=== PATIENT | male | born 1940 | race Caucasian/White ===

== ENCOUNTER 2016-05-21 08:42 | Observation (INO) | payer MEDICARE, MEDICAID ==
[~2016-05-21] VITALS: Ht 172.7 cm; Wt 101.8 kg
[~2016-05-21 08:42] MED LIST: ADAL30TA10 PO; ALLO100T PO; ALPR0.5T3 PO; AMBI10TA PO; AMLO10 PO; ASPI81 PO; ATOR20TA42 PO; CLON.1 PO; COLC1TAB7 PO; CORE25TA PO; FURO10S PO; FURO20 PO; GLIP10TA6 PO; HYDR12.56 PO; LACT20SO4 PO; LASI20TA PO; LISI-366 PO; METF1000 PO; NAPR-576 PO; OMEG1CAP53 PO; ONDA1TAB16 PO; ONDANSETRON HCL 4 MG/2 ML VIAL IV PUSH ONE; POTA-243 PO; PROPOFOL 200 MG/20 ML AMP IV ONE; TAB-TAB PO; TERA5CAP34 PO; TRAD5TAB PO; ZOCO40TA PO
[2016-05-21] MEDS ORDERED: ALLO100T PO (08:59)
[2016-05-21] MEDS ORDERED: TERA5CAP3 PO (09:00)
[2016-05-21] MEDS ORDERED: METF500T PO (09:00)
[2016-05-21] MEDS ORDERED: ALPR0.5T3 PO (09:01)
[2016-05-21] MEDS ORDERED: CARV12.52 PO (09:02)
[2016-05-21] MEDS ORDERED: COLC1TAB7 PO (09:03)
[2016-05-21] MEDS ORDERED: FURO1TAB60 PO (09:04)
[2016-05-21] MEDS ORDERED: GLUC1CAP14 PO (09:05)
[2016-05-21] MEDS ORDERED: GLIP10TA6 PO (09:05)
[2016-05-21] MEDS ORDERED: trajenta PO (09:10)
[2016-05-21] MEDS ORDERED: TRAD5TAB PO (09:11)
[2016-05-21 09:15] VITALS: BP 175/94; PULSE 62; RESP 20; TEMP 97.6; O2SAT 90
[2016-05-21] MEDS ORDERED: METOPROLOL TARTRATE 25 MG TAB PO PRN (09:30)
[2016-05-21] MEDS: SODIUM CHLORID 0.9% 500 ML IV SCH (09:30)
[2016-05-21] MEDS: LACTATED RINGER'S 1000 ML IV SCH (09:30)
[2016-05-21] MEDS ORDERED: INSULIN HUMAN REGULAR 1,000 UNITS/10 ML VIAL SQ PRN (09:30)
[2016-05-21] MEDS: SODIUM CHLOR 0.9% 1000 ML INJ 1,000 ML IV SCH (09:30)
[2016-05-21] MEDS ORDERED: ceFAZolin 2 GM PREMIX 50 ML IV SCH (09:30)
--- NOTE | 2016-05-21 10:59 | RADRPT ---
EXAM DATE/TIME: 05/21/2016 10:20 [facility] COMPARISON: No previous studies available for comparison. INDICATIONS : Patient with left renal mass in need of IV access. MEDICAL HISTORY : Prostate cancer, Colon cancer, Diabetes, HLD, HTN, COPD, MS, Irregular heartbeat, Diverticulitis, BPH , Gout SURGICAL HISTORY : Cholecystectomy, Colon resection, Cardiac cath ENCOUNTER: Initial ACUITY: 1 year PAIN SCORE: 0/10 ACCESS: Right basilic vein DEVICE(S): 1.) 3/4 Scottish Dilator PROCEDURE : 1. Ultrasound guided venous access. The risks, benefits and alternatives to the procedure were explained and verbal and written consent w as obtained. The site was prepped in sterile fashion. Full sterile technique was used, including ca p, mask, sterile gloves and gown and a large sterile sheet. Hand hygiene and 2% chlorhexidine and/or betadine/alcohol prep was utilized per protocol for cutaneous antisepsis. The skin and subcutaneous tissues were infiltrated with local anesthetic solution. With ultrasound guidance the prescribed vein was punctured for venous access. A 4 Scottish dilator was placed and was flushed and locked with heparin. The patient tolerated procedure well and there were n o complications. CONCLUSION: Uncomplicated ultrasound guided venous access. Hussein Durand MD on May 21, 2016 at 10:58 Board Certified Radiologist. This report was verified electronically.
[2016-05-21 11:00] VITALS: BP 177/90; PULSE 69; RESP 22; O2SAT 92
[2016-05-21 11:08] LABS: BASOPHIL # 0.1 TH/MM3 (0-0.2); EOSINOPHIL # 0.1 TH/MM3 (0-0.4); HEMATOCRIT 33.7 % (39.0-51.0); HEMO FLAGS DIFF FINAL; LYMPHOCYTE # 0.7 TH/MM3 (1.0-4.8); MEAN CORPUSCULAR HEMOGLOBIN 31.9 PG (27.0-34.0); MEAN CORPUSCULAR HGB CONC 35.1 % (32.0-36.0); MONO % 9.7 % (0.0-8.0); NEUT % 74.3 % (16.0-70.0); PLATELET COUNT 157 TH/MM3 (150-450); RED BLOOD COUNT 3.71 MIL/MM3 (4.50-5.90); RED CELL DISTRIBUTION WIDTH 16.2 % (11.6-17.2); WHITE BLOOD COUNT 5.4 TH/MM3 (4.0-11.0)
[2016-05-21 11:09] LABS: PROTHROMBIN TIME - PATIENT 10.7 SEC (9.8-11.6)
[2016-05-21 11:13] LABS: APTT (PATIENT) 24.2 SEC (24.3-30.1)
[2016-05-21] MEDS ORDERED: LIDOCAINE 1%/EPINEPHrine 1:100,000 SOLN 20 ML VIAL ONE (11:35)
[2016-05-21 12:09] LABS: BICARBONATE 32.6 MEQ/L (21.0-32.0); POTASSIUM 3.7 MEQ/L (3.5-5.1)
--- NOTE | 2016-05-21 14:58 | EKG ---
Date Performed: 05/21/2016 Time Performed: 09:24:00 PTAGE: 75 years EKG: Sinus rhythm WITH FIRST DEGREE AV BLOCK NONSPECIFIC T-WAVE ABNORMALITY ABNORMAL ECG NO SIGNIFICANT CHANGE FROM OR IOR ELECTROCARDIOGRAM. PREVIOUS TRACING : 07/19/2013 23.00 DOCTOR: Mo Jones Interpretating Date/Time 05/21/2016 14:57:23
[2016-05-21] MEDS ORDERED: *LABETALOL HCL 100 MG/20 ML VIAL PERIprocedural Use ONLY ONE (16:18)
[2016-05-21] MEDS ORDERED: *ENALAPRILAT 1.25 MG/ML VIAL PERIprocedural Use ONLY ONE (16:38)
[2016-05-21] MEDS ORDERED: DO NOT ADM ANY ANTICOAGULANT DRUGS XX PRN (16:45)
--- NOTE | 2016-05-21 17:26 | PD.RAD ---
Post CT Procedure Prog Note Pre Procedure Diagnosis: (1) Left renal mass Post Procedure Diagnosis: (1) Left renal mass Procedure Date: May 21, 2016 Supervising Radiologist: Hussein Durand Proceduralist/Assist: Juan Jose Whelan RT(R)(CT) Anesthesia: General Plan of Activity Patient to Unit: PACU Patient Condition: Good See PACS Report for procedural detail/treatment Biopsy Side: Left Biopsy Procedure: Kidney Specimen: Core Biopsy Additional Detail: with cryoablation Hussein Durand MD May 21, 2016 17:26
[2016-05-21 17:29] VITALS: BP 170/90; PULSE 66; RESP 19; TEMP 97.9; O2SAT 97
--- NOTE | 2016-05-21 17:55 | HHI.HP ---
HPI Service CP Hospitalists Primary Care Physician Alirio Johnson MD Admission Diagnosis Chief Complaint: renal mass Travel History International Travel<30 Days: No Contact w/Intl Traveler <30 Da: No Traveled to Known Affected Are: No History of Present Illness Pt [place] [facility] [place] bx of left renal mass. Pt is doing well and vitals are stable. denies pain or nausea. eager for d/c in AM. Review of Systems Other renal mass holding all dm meds due to low bg Past Family Social History Past Medical History HTN CAD with hx of [place] Hypertensive CKD, stage 2 Hyperlipidemia Diabetes..but hold all dm meds due to low bg Depression/anxiety GERD/Gastritis Hx of colon cancer Hx of prostate cancer Hx of melanoma RA Nontoxic multinodular goiter Osteoarthritis Past Surgical History EGD/colonoscopy 05/16/16 --> large friable nodules in the antrum, severe gastritis, mild diverticulosis, anatomy consistent with right hemicolectomy Partial colectomy Cholecystectomy Tonsillectomy Reported Medications -Lasix 40 Mg PO DAILY -Alprazolam 0.5 Mg PO DAILY PRN -Terazosin 5 Mg PO HS --Colcrys 0.6 Mg PO DAILY PRN Carvedilol 12.5 Mg PO daily Glucosamine-Chondroitin 500-400 Mg Cap 1 Cap PO DAILY HE IS NO LONGER TAKING THE FOLLOWING DUE TO LOW BG: Metformin 500 Mg PO in AM and 1,000Mg in PM With a meal Glipizide 10 Mg PO BID Tradjenta 5 Mg PO DAILY Allergies: Coded Allergies: Contrast Media (Verified Allergy, Severe, RASH, ITCHING, 05/21/16) Shellfish (Verified Allergy, Severe, RASH, ITCHING, 05/21/16) Family History Noncontributory Social History Denies any alcohol, tobacco or illicit drug use Physical Exam Vital Signs Vital Signs Date Time Temp Pulse Resp B/P Pulse Ox O2 Delivery O2 Flow Rate FiO2 05/21/16 17:29 97.9 66 19 170/90 97 05/21/16 16:30 46 12 172/83 94 Room Air 05/21/16 16:15 60 12 187/98 93 Room Air 05/21/16 15:59 97.8 66 12 185/88 97 Room Air 05/21/16 11:00 69 22 177/90 92 05/21/16 09:41 90 Room Air 05/21/16 09:15 97.6 62 20 175/94 90 Laboratory Laboratory Tests Test 05/21/16 05/21/16 10:40 11:30 White Blood Count 5.4 Red Blood Count 3.71 Hemoglobin 11.8 Hematocrit 33.7 Mean Corpuscular Volume 91.0 Mean Corpuscular Hemoglobin 31.9 Mean Corpuscular Hemoglobin 35.1 Concent Red Cell Distribution Width 16.2 Platelet Count 157 Mean Platelet Volume 10.8 Neutrophils (%) (Auto) 74.3 Lymphocytes (%) (Auto) 13.0 Monocytes (%) (Auto) 9.7 Eosinophils (%) (Auto) 2.0 Basophils (%) (Auto) 1.0 Neutrophils # (Auto) 4.0 Lymphocytes # (Auto) 0.7 Monocytes # (Auto) 0.5 Eosinophils # (Auto) 0.1 Basophils # (Auto) 0.1 CBC Comment DIFF FINAL Differential Comment Prothrombin Time 10.7 Prothromb Time International 1.0 Ratio Activated Partial 24.2 Thromboplast Time Sodium Level 137 Potassium Level 3.7 Chloride Level 99 Carbon Dioxide Level 32.6 Anion Gap 5 Blood Urea Nitrogen 17 Creatinine 1.35 Estimat Glomerular Filtration 51 Rate Random Glucose 190 Calcium Level 8.5 Result Diagram: 05/21/16 1040 05/21/16 1130 Imaging Last Impressions [facility] [place] Interventional Procedure 05/21/16 0000 Signed Impressions: Service Date/Time: Saturday, May 21, 2016 10:20 - CONCLUSION: Uncomplicated ultrasound guided venous access. Hussein Durand MD Septic Shock Reassessment Heart: Regular rate and rhythm Lungs: Clear Skin: Warm Assessment and Plan Problem List: (1) Left renal mass Status: Acute Plan: pt admitted post cryoablation and renal bx for left renal mass admitted overnight for observation by IR c. If pt remains stable overnight he can be discharged and f/u with her referring physician. monitor bp/pulse monitor bg with ssi. pt has been holding glipizide/metformin/tradjenta at home due to low bg. (2) Anxiety Status: Chronic Plan: xanax prn (3) DM (diabetes mellitus) Status: Chronic Plan: holding his 3 meds as above. (4) HTN (hypertension) Status: Chronic Plan: home meds (5) Gout Status: Chronic Kailey Thurman May 21, 2016 17:55 Ronald Mike MD May 21, 2016 18:41
[2016-05-21] MEDS ORDERED: HYDROmorphone HCL 2 MG TAB PO PRN (18:00)
--- NOTE | 2016-05-21 18:04 | RADRPT ---
EXAM DATE/TIME: 05/21/2016 13:27 [facility] COMPARISON: No previous studies available for comparison. INDICATIONS : Left kidney lesions BIOPSY SITE: Left kidney Anesthesia and pain control was provided by the Anesthesia department. DEVICE(S): 1.) 20 gauge Temno core biopsy needle 2.) 22 gauge [place] MEDICAL HISTORY : Diverticullitis. Prostate ca SURGICAL HISTORY : Cholecystectomy ENCOUNTER: Initial ACUITY: 1 day PAIN SCORE: 0/10 LOCATION: Left Kidney A total of one core specimen(s) were obtained and sent to the laboratory for pathologic evaluation. PROCEDURE: 1. CT guided renal biopsy. Prior to the procedure informed consent was obtained. Any appropriate prior imaging studies were rev iewed. The site was prepped in a sterile fashion. Full sterile technique was used, including cap, mask, slade rile gloves and gown and a large sterile sheet. Hand hygiene and 2% chlorhexidine and/or betadine/al cohol prep was utilized per protocol for cutaneous antisepsis. The skin and subcutaneous tissues wer e infiltrated with local anesthetic solution. With CT guidance the previously identified target was localized. Biopsy was performed using the presc ribed needle as above. Adequate hemostasis was obtained with compression at the puncture site. Follow-up CT scan reveals no hemorrhage. The patient tolerated the procedure well and there were no complications. The patient was returned to the Radiology Outpatient Unit in stable condition. CONCLUSION: Uncomplicated CT guided biopsy. Hussein Durand MD on May 21, 2016 at 18:01 Board Certified Radiologist. This report was verified electronically.
[2016-05-21] MEDS ORDERED: DEXTROSE 50% IN WATER 50 ML VIAL(D50) IV PUSH PRN (18:15)
[2016-05-21] MEDS ORDERED: ONDANSETRON HCL 4 MG/2 ML VIAL IV PUSH PRN (18:15)
[2016-05-21] MEDS ORDERED: GLUCAGON 1 MG/ML VIAL OTHER PRN ×2 (18:15)
[2016-05-21 19:37] VITALS: O2SAT 97
[2016-05-21 19:38] LABS: HEMATOCRIT 36.1 % (39.0-51.0); MEAN CELL VOLUME 90.6 FL (80.0-100.0); MEAN CORPUSCULAR HEMOGLOBIN 30.8 PG (27.0-34.0); PLATELET COUNT 117 TH/MM3 (150-450); RED BLOOD COUNT 3.98 MIL/MM3 (4.50-5.90); RED CELL DISTRIBUTION WIDTH 15.4 % (11.6-17.2); WHITE BLOOD COUNT 6.1 TH/MM3 (4.0-11.0)
[2016-05-21 19:39] LABS: HEMO FLAGS AUTO DIFF
[2016-05-21 20:00] VITALS: BP 185/87; PULSE 50; RESP 18; TEMP 96.4; O2SAT 97
[2016-05-21] MEDS: INSULIN ASPART SUPPLEMENTAL SCALE SQ SCH (20:37)
[2016-05-21 20:38] LABS: BANDS 10 % (0-6); EOSINOPHILS 3 % (0-4); METAMYELOCYTES 1 % (0-1); NEUTROPHIL # MANUAL DIFF 4.2 TH/MM3 (1.8-7.7); PLATELET ESTIMATE SMEAR LOW (NORMAL); PLATELET MORPHOLOGY NORMAL (NORMAL); POLYS (SEG NEUTROPHILS) 58 % (16-70); SCAN/DIFF FINAL DIFF MANUAL; WBC DIFF SAMPLE 100
[2016-05-21] MEDS ORDERED: TERAZOSIN HCL 5 MG CAP PO SCH (21:00)
[2016-05-21] MEDS: ALPRAZolam 0.5 MG TAB PO PRN (23:17)
[2016-05-21] MEDS: cloNIDine HCL 0.1 MG TAB PO PRN (23:17)
[2016-05-22] VITALS (10 sets, daily range): BP systolic 144–205; BP diastolic 67–93; PULSE 56–65; RESP 16–18; TEMP 96.3–98.1; O2SAT 92–96
[2016-05-22] MEDS: SODIUM CHLORID 0.9% 500 ML IV SCH (01:57)
[2016-05-22] MEDS: INSULIN ASPART SUPPLEMENTAL SCALE SQ SCH ×3 (05:08→15:39)
[2016-05-22] MEDS: SODIUM CHLOR 0.9% 1000 ML INJ 1,000 ML IV SCH (08:46)
[2016-05-22] MEDS: LACTATED RINGER'S 1000 ML IV SCH (08:46)
[2016-05-22] MEDS ORDERED: ALLOPURINOL 100 MG TAB PO SCH (09:00)
[2016-05-22] MEDS ORDERED: CARVEDILOL 12.5 MG TAB PO SCH (09:00)
[2016-05-22] MEDS ORDERED: FUROSEMIDE 40 MG TAB PO SCH (09:00)
[2016-05-22] MEDS: cloNIDine HCL 0.1 MG TAB PO PRN ×2 (11:10→15:42)
[2016-05-22] MEDS ORDERED: LOSA50TA PO (11:35)
--- NOTE | 2016-05-22 12:00 | HHI.PR ---
Subjective Remarks Pt with elevated BP last night and this morning. NO new complaints Anxious to go home Objective Vitals Vital Signs Date Time Temp Pulse Resp B/P Pulse Ox O2 Delivery O2 Flow Rate FiO2 05/22/16 08:00 98.1 65 16 163/72 94 05/22/16 04:00 97.1 56 18 144/67 92 05/22/16 00:00 96.9 58 16 205/93 96 05/21/16 20:00 96.4 50 18 185/87 97 05/21/16 19:37 97 21 05/21/16 17:29 97.9 66 19 170/90 97 05/21/16 16:30 46 12 172/83 94 Room Air 05/21/16 16:15 60 12 187/98 93 Room Air 05/21/16 15:59 97.8 66 12 185/88 97 Room Air 05/21/16 05/21/16 05/22/16 15:00 23:00 07:00 Intake Total 1240 ml 120 ml Output Total 200 ml 250 ml Balance 1040 ml -130 ml Intake Oral 240 ml 120 ml IV Total 0 ml 0 ml Other 1000 ml Output Urine Total 200 ml 250 ml Estimated Blood Loss 0 ml # Bowel Movements 0 Result Diagram: 05/21/16 1857 05/21/16 1130 Other Results Laboratory Tests Test 05/21/16 05/21/16 05/21/16 10:40 11:30 18:57 White Blood Count 5.4 TH/MM3 6.1 TH/MM3 Red Blood Count 3.71 MIL/MM3 3.98 MIL/MM3 Hemoglobin 11.8 GM/DL 12.3 GM/DL Hematocrit 33.7 % 36.1 % Mean Corpuscular Volume 91.0 FL 90.6 FL Mean Corpuscular Hemoglobin 31.9 PG 30.8 PG Mean Corpuscular Hemoglobin 35.1 % 34.0 % Concent Red Cell Distribution Width 16.2 % 15.4 % Platelet Count 157 TH/MM3 117 TH/MM3 Mean Platelet Volume 10.8 FL 10.5 FL Neutrophils (%) (Auto) 74.3 % % Lymphocytes (%) (Auto) 13.0 % % Monocytes (%) (Auto) 9.7 % % Eosinophils (%) (Auto) 2.0 % % Basophils (%) (Auto) 1.0 % % Neutrophils # (Auto) 4.0 TH/MM3 TH/MM3 Lymphocytes # (Auto) 0.7 TH/MM3 TH/MM3 Monocytes # (Auto) 0.5 TH/MM3 TH/MM3 Eosinophils # (Auto) 0.1 TH/MM3 TH/MM3 Basophils # (Auto) 0.1 TH/MM3 TH/MM3 CBC Comment DIFF FINAL AUTO DIFF Differential Comment FINAL DIFF MANUAL Prothrombin Time 10.7 SEC Prothromb Time International 1.0 RATIO Ratio Activated Partial 24.2 SEC Thromboplast Time Sodium Level 137 MEQ/L Potassium Level 3.7 MEQ/L Chloride Level 99 MEQ/L Carbon Dioxide Level 32.6 MEQ/L Anion Gap 5 MEQ/L Blood Urea Nitrogen 17 MG/DL Creatinine 1.35 MG/DL Estimat Glomerular Filtration 51 ML/MIN Rate Random Glucose 190 MG/DL Calcium Level 8.5 MG/DL Differential Total Cells 100 Counted Neutrophils % (Manual) 58 % Band Neutrophils % 10 % Lymphocytes % 20 % Monocytes % 8 % Eosinophils % 3 % Neutrophils # (Manual) 4.2 TH/MM3 Metamyelocytes 1 % Atypical Lymphocytes % Platelet Estimate LOW Platelet Morphology Comment NORMAL Hematology Comments Imaging Last Impressions [facility] [place] Interventional Procedure 05/21/16 0000 Signed Impressions: Service Date/Time: Saturday, May 21, 2016 10:20 - CONCLUSION: Uncomplicated ultrasound guided venous access. Hussein Durand MD Objective Remarks General: NAD, AAOx3 Chest: CTA bilaterally Cardiac: Regular Abd: +BS, soft ND/NT Ext: No edema A/P Problem List: (1) Left renal mass Status: Acute Plan: - Pt admitted post cryoablation and renal bx for left renal mass, [place] [facility] [place] Pt cleared for discharge by IR for today. - BP elevated overnight and this morning. - Pt reports that there have been issues controlling his blood pressure outpt for some time. - He was recently started on Losartan 50mg which was increased a few weeks ago to BID dosing. - Pt will resume this upon discharge and receive a dose this evening. He was given Clonidine around 11:00AM so I don't want to resume the Losartan now as his BP will likely drop further. Await repeat BP this afternoon and if systolic BP less than 170 pt can go home and resume his home meds. - He will need to followup with Dr. Johnson next week and with Dr. Quezada his Urologist. (2) Anxiety Status: Chronic Plan: - Xanax prn (3) DM (diabetes mellitus) Status: Chronic Plan: - Holding his 3 meds due to low blood sugars at home. (4) HTN (hypertension) Status: Chronic Plan: - See above. (5) Gout Status: Chronic Assessment and Plan Patient examined. Assessment and plan formulated with Kailey Thurman PA-C. I agree with the above. dc/ once bp lowered. he was not given his losartan last night or this morning. it wasn't on med recc. Kailey Thurman May 22, 2016 12:00 Ronald Mike MD May 22, 2016 13:01
--- NOTE | 2016-05-22 12:02 | HHI.DCPOC ---
Discharge Care Plan Diagnosis: (1) Anxiety (2) Gout (3) DM (diabetes mellitus) (4) HTN (hypertension) (5) Left renal mass Goals to Promote Your Health * To prevent worsening of your condition and complications * To maintain your health at the optimal level Directions to Meet Your Goals Take your medications as prescribed Follow your dietary instruction Follow activity as directed Keep your appointments as scheduled Take your immunizations and boosters as scheduled If your symptoms worsen call your PCP, if no PCP go to Urgent Care Center or Emergency Room Smoking is Dangerous to Your Health. Avoid second hand smoke Call the 24-hour hour crisis hotline for domestic abuse at Kailey Thurman May 22, 2016 12:02
[2016-05-22] MEDS ORDERED: LOSARTAN 50 MG TAB PO ONE (13:15)
[2016-05-22] MEDS: ALPRAZolam 0.5 MG TAB PO PRN (13:47)
[2016-05-22] MEDS ORDERED: cloNIDine HCL 0.2 MG TAB PO PRN (16:15)
[2016-05-22] MEDS ORDERED: ENALAPRILAT 1.25 MG/ML VIAL IV PUSH PRN (16:45)
--- NOTE | 2016-05-22 18:39 | RADRPT ---
EXAM DATE/TIME: 05/21/2016 13:27 INDICATIONS : Left renal lesion Anesthesia and pain control was provided by the Anesthesia department. DEVICE(S): 1.) Cryoablation probe [id number] MEDICAL HISTORY : Diverticullitis. Prostate cancer SURGICAL HISTORY : Cholecystectomy. ENCOUNTER: Initial ACUITY: 1 day PAIN SCORE: 0/10 LOCATION: Left Kidney PROCEDURE : 1. CT guided cryoablation. Under sterile conditions and using aseptic technique with CT guidance the mass was localized and sati sfactory approach was taken to access the lesion. [employer] Cryoprobes were employed using percutaneous technique employing the prescribed probes. A freeze-thaw, freeze-thaw technique was employed with 2 separate repositionings of the treatment pr obe and serial imaging demonstrated an ice ball emcompassing the entire lesion. Post procedure image s demonstrate expected postoperative changes small perinephric hematoma which was observed and docume nted to be stable prior to transfer to the recovery area. CONCLUSION: Uncomplicated cryoablation as above. Hussein Durand MD on May 22, 2016 at 18:35 Board Certified Radiologist. This report was verified electronically.
== END 2016-05-22 19:45 | disposition home or self-care (01) ==
LOC: HROP 08:42 → HRIP 08:43 → HROP 15:12 → N07B 15:13
PROVIDERS: ADMIT Hospitalist; ATTEND Hospitalist
DX: N28.89 Other specified disorders of kidney and ureter (principal); F41.9 Anxiety disorder, unspecified; I12.9 Hypertensive chronic kidney disease with stage 1 through stage 4 chronic kidney disease, or unspecified chronic kidney disease; N18.2 Chronic kidney disease, stage 2 (mild); M10.9 Gout, unspecified; K21.9 Gastro-esophageal reflux disease without esophagitis; I25.10 Atherosclerotic heart disease of native coronary artery without angina pectoris; E11.22 Type 2 diabetes mellitus with diabetic chronic kidney disease; E78.5 Hyperlipidemia, unspecified; I25.2 Old myocardial infarction; Z85.038 Personal history of other malignant neoplasm of large intestine; Z85.46 Personal history of malignant neoplasm of prostate; Z85.820 Personal history of malignant melanoma of skin
CPT/HCPCS: 00862; 36410; 50200; 50593; 76937; 77012; 77013; 80048; 82948; 85007; 85025; 85027; 85610; 85730; 88305; 88341; 88342; 93005; C2618; G0378; J0690; J1815; J2405; J3010; J7120

== ENCOUNTER 2016-07-15 08:06 | Inpatient (IN) | payer MEDICARE, MEDICAID, OTHER ==
[~2016-07-15] VITALS: Ht 170.2 cm; Wt 98.2 kg
[2016-07-15] VITALS (17 sets, daily range): BP systolic 92–214; BP diastolic 58–129; PULSE 61–117; RESP 15–28; TEMP 97.6–98.5; O2SAT 92–100
[~2016-07-15 08:06] MED LIST changes: -ADAL30TA10 PO; -ATOR20TA42 PO; +CARV12.52 PO; -CLON.1 PO; -CORE25TA PO; +FURO1TAB60 PO; -FURO20 PO; -GLIP10TA6 PO; +GLUC1CAP14 PO; -HYDR12.56 PO; -LACT20SO4 PO; -LISI-366 PO; +LOSA50TA PO; -METF1000 PO; -NAPR-576 PO; -ONDA1TAB16 PO; -ONDANSETRON HCL 4 MG/2 ML VIAL IV PUSH ONE; -PROPOFOL 200 MG/20 ML AMP IV ONE; +TERA5CAP3 PO; -TRAD5TAB PO
[2016-07-15] MEDS ORDERED: FUROSEMIDE 100 MG/10 ML VIAL IVP ONE (08:30)
[2016-07-15] MEDS ORDERED: hydrALAZINE HCL 20 MG/ML VIAL IV PUSH ONE (08:30)
--- NOTE | 2016-07-15 08:42 | PD ---
HPI Chief Complaint: Respiratory Symptoms Time Seen by Provider: 08:16 Travel History International Travel<30 days: No Contact w/Intl Traveler<30days: No Traveled to known affect area: No History of Present Illness HPI This patient complains of shortness of breath. Duration 2 days. Symptoms are severe. He has developed worsening of his intermittent lower extremity edema. He denies productive cough or fever or any chest pain. He did not take any medications today. Was planning to get an outpatient stress test today for cardiac clearance for hernia surgery but was noted to be short of breath and sent to the ER instead. No alleviating factors. PFSH Past Medical History Arthritis: Yes (GOUT IN FOOT, ARTHRITIS IN RIGHT SIDE OF HIP AND KNEE) Asthma: No Autoimmune Disease: No Blood Disorders: No Anxiety: Yes Depression: No Heart Rhythm Problems: Yes (RAPID HEARTBEAT) Cancer: Yes (melanoma, colon) Cardiac Catheterization: Yes (X1) Cardiovascular Problems: No High Cholesterol: Yes Chemotherapy: No Congestive Heart Failure: No COPD: No Cerebrovascular Accident: No Diabetes: Yes Patient Takes Glucophage: Yes Diminished Hearing: No Diverticulitis: Yes Endocrine: Yes (DM) Gastrointestinal Disorders: Yes (diverticulosis, cholecystectomy) GERD: No Glaucoma: No Gout: Yes Genitourinary: Yes (freq) Headaches: No Hepatitis: No Hiatal Hernia: Yes Hypertension: Yes Immune Disorder: No Kidney Stones: No Musculoskeletal: No Neurologic: No Psychiatric: Yes (anxiety) Reproductive: No Respiratory: No Immunizations Current: Yes Migraines: No Myocardial Infarction: Yes Radiation Therapy: No Renal Failure: No Seizures: No Sickle Cell Disease: No Sleep Apnea: No Thyroid Disease: No Ulcer: No Past Surgical History Abdominal Surgery: Yes (colon resect, choleycystectomy) AICD: No Appendectomy: No Arteriovenous Shunt: No Cardiac Surgery: No Cholecystectomy: Yes Ear Surgery: No Endocrine Surgery: No Eye Surgery: No Genitourinary Surgery: No Gynecologic Surgery: No Insulin Pump: No Joint Replacement: No Oral Surgery: Yes (dentures) Pacemaker: No Thoracic Surgery: No Tonsillectomy: Yes (T&A) Other Surgery: Yes (cholecystectomy, colon resect, melanoma, ) Social History Alcohol Use: No Tobacco Use: No Substance Use: No Allergies-Medications (Allergen,Severity, Reaction): Coded Allergies: Contrast Media (Verified Allergy, Severe, RASH, ITCHING, 05/21/16) Shellfish (Verified Allergy, Severe, RASH, ITCHING, 05/21/16) Reported Meds & Prescriptions Reported Meds & Active Scripts Active Reported Losartan (Losartan Potassium) 50 Mg Tab 50 Mg PO BID Glucosamine-Chondroitin 500-400 Mg Cap 1 Cap PO DAILY Lasix (Furosemide) 40 Mg Tab 40 Mg PO DAILY Colcrys (Colchicine) 0.6 Mg Tab 0.6 Mg PO DAILY Carvedilol 12.5 Mg Tab 12.5 Mg PO DAILY Alprazolam 0.5 Mg Tab 0.5 Mg PO DAILY PRN Terazosin (Terazosin HCl) 5 Mg Cap 5 Mg PO HS Allopurinol 100 Mg Tab 100 Mg PO DAILY Review of Systems General / Constitutional: No: Fever Eyes: No: Visual changes HENT: No: Headaches Cardiovascular: Positive: Tachycardia, Edema, No: Chest Pain or Discomfort Respiratory: Positive: Shortness of Breath Gastrointestinal: No: Abdominal Pain Genitourinary: No: Dysuria Musculoskeletal: Positive: Edema, No: Pain Skin: No Rash Neurologic: No: Weakness Psychiatric: No: Depression Endocrine: No: Polydipsia Hematologic/Lymphatic: No: Easy Bruising Physical Exam Narrative GENERAL: Well-nourished, well-developed patient in respiratory distress. SKIN: Warm and dry. HEAD: Atraumatic. Normocephalic. EYES: Pupils equal and round. No scleral icterus. No injection or drainage. ENT: No nasal bleeding or discharge. Mucous membranes pink and moist. NECK: Trachea midline. No JVD. CARDIOVASCULAR: Regular rate and rhythm with significant ectopic beats. No murmur appreciated. RESPIRATORY: Positive accessory muscle use. Bilateral basilar crackles . Breath sounds equal bilaterally. GASTROINTESTINAL: Abdomen soft, non-tender, nondistended. Hepatic and splenic margins not palpable. MUSCULOSKELETAL: No obvious deformities. No clubbing. No cyanosis. Symmetric pitting edema in the lower legs between ankle and knee. NEUROLOGICAL: Awake and alert. No obvious cranial nerve deficits. Motor grossly within normal limits. Normal speech. PSYCHIATRIC: Appropriate mood and affect; insight and judgment normal. Data Data Last Documented VS Vital Signs Date Time Temp Pulse Resp B/P Pulse Ox O2 Delivery O2 Flow Rate FiO2 07/15/16 10:17 100 50 07/15/16 09:11 88 199/129 Non-Rebreather 07/15/16 09:11 13 07/15/16 08:18 28 07/15/16 08:08 98.5 Orders Complete Blood Count With Diff (07/15/16 08:27) Basic Metabolic Panel (Bmp) (07/15/16 08:27) Act Partial Throm Time (Ptt) (07/15/16 08:27) Prothrombin Time / Inr (Pt) (07/15/16 08:27) Ckmb (Isoenzyme) Profile (07/15/16 08:27) Troponin I (07/15/16 08:27) Iv Access Insert/Monitor (07/15/16 08:27) Ecg Monitoring (07/15/16 08:27) Oximetry (07/15/16 08:27) Oxygen Administration (07/15/16 08:27) Chest, Single Ap (07/15/16 08:27) Urinary Catheter Insert/Apply (07/15/16 08:27) Sodium Chloride 0.9% Flush (Ns Flush) (07/15/16 08:30) Furosemide Inj (Lasix Inj) (07/15/16 08:30) Hydralazine Inj (Apresoline Inj) (07/15/16 08:30) CKMB (07/15/16 08:30) CKMB% (07/15/16 08:30) Lorazepam Inj (Ativan Inj) (07/15/16 10:15) Resp Bipap / Cpap Non Invas Vt (07/15/16 ) Lorazepam Inj (Ativan Inj) (07/15/16 10:02) Labs Laboratory Tests Test 07/15/16 08:30 White Blood Count 7.6 TH/MM3 Red Blood Count 4.20 MIL/MM3 Hemoglobin 12.9 GM/DL Hematocrit 38.7 % Mean Corpuscular Volume 92.2 FL Mean Corpuscular Hemoglobin 30.6 PG Mean Corpuscular Hemoglobin 33.2 % Concent Red Cell Distribution Width 16.3 % Platelet Count 148 TH/MM3 Mean Platelet Volume 10.5 FL Neutrophils (%) (Auto) 80.0 % Lymphocytes (%) (Auto) 12.3 % Monocytes (%) (Auto) 6.4 % Eosinophils (%) (Auto) 1.1 % Basophils (%) (Auto) 0.2 % Neutrophils # (Auto) 6.1 TH/MM3 Lymphocytes # (Auto) 0.9 TH/MM3 Monocytes # (Auto) 0.5 TH/MM3 Eosinophils # (Auto) 0.1 TH/MM3 Basophils # (Auto) 0.0 TH/MM3 CBC Comment DIFF FINAL Differential Comment Prothrombin Time 10.8 SEC Prothromb Time International 1.0 RATIO Ratio Activated Partial 26.6 SEC Thromboplast Time Sodium Level 137 MEQ/L Potassium Level 4.3 MEQ/L Chloride Level 99 MEQ/L Carbon Dioxide Level 27.9 MEQ/L Anion Gap 10 MEQ/L Blood Urea Nitrogen 14 MG/DL Creatinine 1.37 MG/DL Estimat Glomerular Filtration 51 ML/MIN Rate Random Glucose 199 MG/DL Calcium Level 8.8 MG/DL Total Creatine Kinase 117 U/L Creatine Kinase MB 3.2 NG/ML Troponin I 0.09 NG/ML [facility] Medical Decision Making Medical Screen Exam Complete: Yes Emergency Medical Condition: Yes Medical Record Reviewed: Yes Differential Diagnosis Differential diagnosis includes COPD, asthma, pneumonia, bronchitis, CHF, hypertensive emergency Narrative Course I have reviewed the patient's electronic medical record. Reviewed his most recent history and physical which was April 2016 when he was admitted for cryoablation of left renal mass This patient presents critically ill He is very dyspneic IV placed Presentation is concerning for congestive heart failure exacerbation and hypertensive emergency given his systolic blood pressure of 218 and dyspnea I gave him 80 mg IV Lasix Castro catheter placed I gave him 10 mg IV hydralazine CBC is normal Metabolic profile reasonably normal CK is normal Troponin is 0.09 Coagulation studies are normal I reviewed his EKG which shows sinus rhythm with PVCs Extended cardiac monitoring reveals sinus tachycardia with frequent ectopy heart rate up to 130s I reviewed his chest x-ray which shows significant pulmonary edema with a moderate-sized right pleural effusion On recheck he is still working hard to breathe I believe without assistance he will tire out so I have initiated BiPAP therapy Will obtain an ABG in 30 minutes Castro catheter is put out 900 cc of clear yellow urine Blood pressure still elevated at 238 systolic I will give him a dose of IV Vasotec as the hydralazine did nothing I reviewed with local delivery truck driver who will admit to intensive care on BiPAP therapy for diuresis and stabilization Critical Care Narrative Aggregate critical care time was 38 minutes. Time to perform other separately billable procedures was not included in the critical care time. My time did not include minutes spent treating any other patients simultaneously or on activities that did not directly contribute to the patient's treatment. The services I provided to this patient were to treat and/or prevent clinically significant deterioration that could result in: Respiratory failure, cardiopulmonary arrest, cardiogenic shock I provided critical care services requiring my management, as noted below: Chart data review, documentation time, medication orders and management, vital sign assessments/reviewing monitor data, ordering and reviewing lab tests, ordering and interpreting/reviewing x-rays and diagnostic studies, care of the patient and discussion of the patient with the admitting physicians. Diagnosis Primary Impression: Acute respiratory failure Qualified Code: J96.00 - Acute respiratory failure, unspecified whether with hypoxia or hypercapnia Additional Impressions: Acute systolic CHF (congestive heart failure) Hypertensive urgency Admitting Information Admitting Physician Requests: Admit Yanick Mendoza MD Jul 15, 2016 08:41
[2016-07-15 08:55] LABS: AUTOMATED NEUTROPHIL # 6.1 TH/MM3 (1.8-7.7); BASOPHIL % 0.2 % (0.0-2.0); EOSINOPHIL # 0.1 TH/MM3 (0-0.4); EOSINOPHIL % 1.1 % (0.0-4.0); HEMATOCRIT 38.7 % (39.0-51.0); HEMO FLAGS DIFF FINAL; LYMPH % 12.3 % (9.0-44.0); LYMPHOCYTE # 0.9 TH/MM3 (1.0-4.8); MEAN CELL VOLUME 92.2 FL (80.0-100.0); MEAN CORPUSCULAR HEMOGLOBIN 30.6 PG (27.0-34.0); MEAN CORPUSCULAR HGB CONC 33.2 % (32.0-36.0); MONO % 6.4 % (0.0-8.0); PLATELET COUNT 148 TH/MM3 (150-450); RED CELL DISTRIBUTION WIDTH 16.3 % (11.6-17.2); WHITE BLOOD COUNT 7.6 TH/MM3 (4.0-11.0)
[2016-07-15 09:04] LABS: APTT (PATIENT) 26.6 SEC (24.3-30.1); PROTHROMBIN TIME - PATIENT 10.8 SEC (9.8-11.6)
[2016-07-15 09:17] LABS: ANION GAP 10 MEQ/L (5-15); BICARBONATE 27.9 MEQ/L (21.0-32.0); BLOOD UREA NITROGEN 14 MG/DL (7-18); CHLORIDE 99 MEQ/L (98-107); GLOMERULAR FILTRATION RATE 51 ML/MIN (>89); POTASSIUM 4.3 MEQ/L (3.5-5.1); SODIUM (NA) 137 MEQ/L (136-145)
[2016-07-15 09:25] LABS: CREATINE KINASE 117 U/L (39-308)
[2016-07-15 09:37] LABS: CKMB 3.2 NG/ML (0.5-3.6)
[2016-07-15] MEDS ORDERED: LORazepam 2 MG/ML VIAL ONE (10:02)
[2016-07-15] MEDS ORDERED: LORazepam 2 MG/ML VIAL IV PUSH ONE (10:15)
--- NOTE | 2016-07-15 10:24 | RADRPT ---
EXAM DATE/TIME: 07/15/2016 08:33 [place] COMPARISON: CHEST SINGLE AP, July 19, 2013, 23:04. INDICATIONS: Patient is very short of breath since this morning. MEDICAL HISTORY: Carcinoma, prostatic. Diverticulitis. SURGICAL HISTORY: Cholecystectomy. ENCOUNTER: Initial ACUITY: 1 day PAIN SCORE: 0/10 LOCATION: Bilateral chest FINDINGS: The heart is mildly prominent. Mild bibasilar patchiness is noted (right slightly worse than left) c onsistent with atelectasis and developing infiltrates. Clinical correlation is recommended. Small r ight pleural effusion is noted. Mild degenerative changes and scoliosis of the thoracic spine are no fozia. CONCLUSION: 1. Bibasilar patchiness (right slightly worse than left) consistent with atelectasis and/or developi ng infiltrates. Clinical correlation is recommended. 2. Small right pleural effusion. 3. Mild cardiomegaly. 4. Degenerative changes and scoliosis of the thoracic spine. León Mckinney MD on July 15, 2016 at 9:53 Board Certified Radiologist. This report was verified electronically.
[2016-07-15] MEDS ORDERED: ENALAPRILAT 1.25 MG/ML VIAL IV PUSH ONE (10:30)
[2016-07-15] MEDS ORDERED: NITROGLYCERIN 2% OINT 1 GM PACKET TOPICAL ONE (10:30)
[2016-07-15] MEDS: SODIUM CHLORIDE 0.9% FLUSH 5 ML FLUSH IVF PRN ×3 (10:34→11:50)
[2016-07-15] MEDS ORDERED: TYLETAB34 PO (11:12)
[2016-07-15] MEDS ORDERED: ALPR0.25 PO (11:12)
[2016-07-15] MEDS ORDERED: RESP: ALBUTEROL 2.5 MG/IPRATROPIUM 0.5 MG NEB (PRN) INH (11:15)
[2016-07-15] MEDS ORDERED: MISCELLANEOUS NURSING INFORMATION XX SCH (11:15)
[2016-07-15] MEDS ORDERED: NITROGLYCERIN-DEXTROSE INJ 250 ML IV SCH (11:15)
[2016-07-15] MEDS ORDERED: DEXTROSE 50% IN WATER 50 ML VIAL(D50) IV PUSH PRN (11:15)
[2016-07-15] MEDS ORDERED: CHLORHEXIDINE GLUCONATE 2 % 1 PACK (2 CLOTHS) TOP PRN (11:15)
[2016-07-15] MEDS ORDERED: GLUCAGON 1 MG/ML VIAL OTHER PRN (11:15)
[2016-07-15 11:30] LABS: BLOOD GAS BASE EXCESS 2.4 mmol/L (-2-2); BLOOD GAS CARBOXYHEMOGLOBIN 1.2 % (0-4); BLOOD GAS HCO3 26 mmol/L (22-26); BLOOD GAS METHEMOGLOBIN 0.8 % (0-2); BLOOD GAS O2 HGB SATURATION 94 % (90-100); BLOOD GAS PCO2 36 mmHg (38-42); BLOOD GAS PO2 82 mmHG (61-120); TEMP CORR TO 98.6
[2016-07-15 11:31] LABS: CRITICAL VALUE NO; DRAW SITE RT RADIAL; FIO2 40 %; NUMBER OF ARTERIAL PUNCTURES 2; OXYGEN DEVICE BiPAP; STAT YES; ULNAR PULSE PRESENT
--- NOTE | 2016-07-15 11:51 | MH ---
cc: FAN EDWARDS M.D. 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 The patient presented to [facility] ED with a 2-day history of progressive worsening shortness of breath associated with edema of lower extremity and nausea. He denies any associated symptoms of chest pain, cough, fever, chills or any constitutional symptoms. He was scheduled to undergo stress test for review. He was scheduled to undergo stress test today as a preop cardiac clearance for his hernia surgery. However, due to shortness of breath. He was sent to the ER for further evaluation and management of his symptoms. 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 On arrival to the ED the patient was hypertensive with blood pressure of 214/128. Initially he was on 4 liters nasal cannula and was placed on BiPap 10/5 with 50% FIO2. Chest x-ray In the ER showed bibasilar patchiness, small right pleural effusion. Mild cardiomegaly and pulmonary infiltrates. In the ER he was given Lasix 80 mg IV push with good response in his urine output, in addition the patient was given hydralazine 10 mg, nitroglycerin 2 inches topical and Ativan 2 mg IV. When seen the patient remained on BiPap with a blood pressure of 238/164. He denies any emesis or abdominal pain. PAST MEDICAL HISTORY: Past medical history significant for; 1. Chronic gout 2. Hypertension, 3. Coronary artery disease with previous SD in the past 4. prostate cancer 5. melanoma 6. papillary renal cell carcinoma. PAST SURGICAL HISTORY Previous cholecystectomy. Previous partial bowel resection for diverticulitis tonsillectomy ALLERGIES CONTRAST MEDIA SHELLFISH FAMILY HISTORY Noncontributory. MEDICATIONS: 1. reported medications; Losartan 2. Lasix 3. Colchicine 4. Coreg. 5. <<4:44>> 6. Allopurinol. REVIEW OF SYSTEMS As per HPI. Rest of the system unremarkable. PHYSICAL EXAMINATION: IN GENERAL: This is a 75-year-old male lying in bed in mild respiratory distress on a BiPap. VITAL SIGNS: Temperature 98.5, pulse of 109, blood pressure 238/164, saturation on 99-100% on a BiPap 10/5 with 50% FIO2. HEAD, EYES, EARS, NOSE, AND THROAT: Atraumatic, normocephalic pupil equal and active to accommodation. Extraocular muscles intact. Conjunctivae pink. Nonicteric sclerae. Oral mucosa within normal. NECK: Supple. No JVD, adenopathy or thyromegaly. Trachea midline. CARDIOVASCULAR: Tachycardiac normal S1-S2. No murmurs, rubs or gallops noted. LUNGS: Pulmonary exam bilateral equal entry with a few coarse breath sounds. ABDOMEN: Soft, obese, nontender, no distension. Positive bowel sounds. EXTREMITIES: No clubbing, cyanosis, 2+ edema. NEUROLOGIC: No focal sensory deficit. LABORATORY DATA WBC 7.6, hemoglobin 12.9, hematocrit 38.7, platelet count of 148, sodium 137, potassium 4.3, chloride 99, CO2 27, BUN 14, creatinine 1.37, glucose 199, troponin 0.09, INR 1, PT 10.8, PTT 26.6. RADIOGRAPHY Chest x-ray Showed pulmonary infiltrates with small right pleural effusion. Mild cardiomegaly. IMPRESSION 1. Respiratory insufficiency. 2. Hypertensive emergency 3. Congestive heart failure decompensation likely diastolic dysfunction. 4. Mild acute kidney injury. 5. Hyperglycemia with underlying history of diabetes mellitus. 6. Coronary artery disease. 7. Anemia 8. History of prostate cancer with previous radiation treatment. 9. History of melanoma of the right shoulder. 10. Chronic gout. 11. Papillary renal carcinoma diagnosed in April. RECOMMENDATIONS: 1. Monitor neuro status closely and avoid any sedatives. 2. Continue with oxygen and maintain sats above 92%. 3. Bronchodilators in the form of DuoNeb q. 4+ q. two p.r.n. for shortness of breath. 4. Noninvasive positive pressure ventilation p.r.n. for respiratory distress. 5. Optimize blood pressure control we will place on nitro drip. Monitor heart rate and blood pressure closely. 6. Monitor troponins and we will obtain a 2-D echo to evaluate LV function. 7. I will consult Dr. Lance from cardiology as the patient is known to him. 8. Monitor renal function Is and Os and electrolyte replacement as needed. 9. Continue with diuretics. The patient was received Lasix 80 mg IV x1 in the ER. We will continue with Lasix 40 mg IV daily. 10. Keep n.p.o. for now until respiratory status improves and place on Protonix 40 mg daily for GI prophylaxis. 11. We will hold off on antibiotics at this time there is no evidence of any infectious process. 12. We will check urinalysis with culture if indicated and a sputum culture with gram stain. 13. Repeat a chest x-ray in 24 hours to follow up on resolution of the pulmonary infiltrates. 14. Place on sliding scale insulin with Accu-Chek q. 6-hour for glycemic control. 15. GI prophylaxis with Protonix 40 mg daily and DVT prophylaxis with SCDs and Lovenox 40 mg Subcu daily. 16. Further recommendations will be based on hospital course. MD TOMMY Graham/peggy /11:18 AM /11:37 AM
--- NOTE | 2016-07-15 12:07 | EKG ---
Date Performed: 07/15/2016 Time Performed: 08:12:12 PTAGE: 75 years EKG: Sinus rhythm WITH FIRST DEGREE AV BLOCK WITH OCCASIONAL VENTRICULAR PREMATURE COMPLEXES WITH OCCASIONAL SUPRAVENT RICULAR PREMATURE COMPLEXES NONSPECIFIC ST & T-WAVE ABNORMALITY ABNORMAL ECG INTERPRETATION BASED ON A DEFAULT AGE OF 40 YEARS PREVIOUS TRACING : 05/21/2016 09.24 DOCTOR: Milan Csae Interpretating Date/Time 07/15/2016 12:06:01
[2016-07-15] MEDS: RESP: ALBUTEROL 2.5 MG/IPRATROPIUM 0.5 MG NEB (SCH) INH ×4 (12:23→23:12)
[2016-07-15] MEDS ORDERED: ENOXAPARIN SODIUM 40 MG/0.4 ML SYRINGE SQ SCH (13:00)
[2016-07-15] MEDS: PANTOPRAZOLE SODIUM 40 MG VIAL IV SCH (13:06)
[2016-07-15] MEDS: INSULIN NovoLIN REGULAR SUPPLEMENTAL SCALE SQ SCH ×2 (13:07→18:00)
--- NOTE | 2016-07-15 16:28 | EC ---
Study Study Date:07/15/2016 STUDY CONCLUSIONS SUMMARY - Procedure narrative: Transthoracic echocardiography. Image quality was poor. Scanning was performed from the parasternal, apical, and subcostal acoustic windows. - Left ventricle: The cavity size was normal. Wall thickness was increased in a pattern of mild LVH. Systolic function was probably mildly reduced. The estimated ejection fraction was 45%. Diffuse hypokinesis. Regional wall motion abnormalities cannot be excluded. - Aortic valve: Poorly visualized. Trileaflet; possible mild leaflet sclerosis. - Mitral valve: Mild anterior leaflet tip calcification. Mild regurgitation. - Tricuspid valve: Trace regurgitation. - Pulmonary arteries: PA peak pressure: 31mm Hg (S). - Pericardium, extracardiac: A trivial pericardial effusion was identified. There was a left pleural effusion. If LV function is below 40, please consider prescribing an ACEI or ARB or document rationale for non-use. PROCEDURE DATA STUDY STATUS: Elective. Procedure: Transthoracic echocardiography. Image quality was poor. Scanning was performed from the parasternal, apical, and subcostal acoustic windows. Study completion: The patient tolerated the procedure well. Transthoracic echocardiography. M-mode, complete 2D, complete spectral Doppler, and color Doppler. Patient status: Inpatient. CARDIAC ANATOMY LEFT VENTRICLE: The cavity size was normal. Wall thickness was increased in a pattern of mild LVH. Systolic function was probably mildly reduced. The estimated ejection fraction was 45%. Diffuse hypokinesis. Regional wall motion abnormalities cannot be excluded. AORTIC VALVE: Poorly visualized. Trileaflet; possible mild leaflet sclerosis. Doppler: Transvalvular velocity was within the normal range. There was no stenosis. No regurgitation. AORTA: Aortic root: The aortic root was normal in size. MITRAL VALVE: Mild anterior leaflet tip calcification. Doppler: Transvalvular velocity was within the normal range. There was no evidence for stenosis. Mild regurgitation. LEFT ATRIUM: The atrium was normal in size. RIGHT VENTRICLE: The cavity size was normal. Wall thickness was normal. PULMONIC VALVE: Doppler: Transvalvular velocity was within the normal range. There was no evidence for stenosis. No regurgitation. TRICUSPID VALVE: Structurally normal valve. Doppler: Transvalvular velocity was within the normal range. Trace regurgitation. PULMONARY ARTERY: The main pulmonary artery was normal-sized. Systolic pressure was within the normal range. RIGHT ATRIUM: The atrium was normal in size. PERICARDIUM: A trivial pericardial effusion was identified. SYSTEMIC VEINS: Inferior vena cava: The vessel was normal in size. Pleura: There was a left pleural effusion. BASIC MEASUREMENTS ADULT Normal Left ventricle LV internal dimension, ED, chordal level, 47.3 mm 43-52 PLAX LV internal dimension, ES, chordal level, *41 mm 23-38 PLAX Fractional shortening, chordal level, PLAX *13 % >29 LV posterior wall thickness, ED 12.4 mm IVS/LVPW ratio, ED *1.64 <1.3 Ventricular septum Septal thickness, ED 20.3 mm Aortic valve Leaflet separation 20 mm 15-26 Right ventricle RV internal dimension, ED, PLAX 27.2 mm 19-38 BASIC MEASUREMENTS ADULT Normal Aortic valve Leaflet separation 20 mm 15-26 Aorta Root diameter, ED 35 mm 20-37 Left atrium Anterior-posterior dimension, ES *46 mm 19-40 LA/aortic root ratio 1.31 DOPPLER MEASUREMENTS ADULT Normal Main pulmonary artery Pressure, S *31 mm Hg =30 Tricuspid valve Regurgitant peak velocity 231 cm/s Peak RV-RA gradient, S 21 mm Hg Maximal regurgitant velocity 231 cm/s Systemic veins Estimated CVP 10 mm Hg Right ventricle RV pressure, S *31 mm Hg <30 LEGEND: Mean values are shown as u=mean value. Asterisk (*) singh values outside specified normal range. Amended Satish Kim. [id number]
--- NOTE | 2016-07-15 18:16 | MB ---
cc: SAUL GOEL MD DATE OF CONSULTATION 07/15/2016 HISTORY OF THE PRESENT ILLNESS This is a 75-year-old gentleman who was admitted to the hospital with acute shortness of breath and he is actually doing fairly well and being evaluated for surgical clearance for ventral hernia repair. He was scheduled for a stress test this morning but woke up acutely short of breath. He came to the emergency department where his chest x-ray has revealed evidence for congestive failure. He has put on a BiPap mask which has been converted to a regular Venti-mask and given Lasix with significant improvement in his breathing. No chest pain was present. In fact he has not had any problems with chest pain in the past. No prior history of heart disease has been present so far as the patient knows, although he has had complaints of high heart rates in the past. He is uncertain what this represents. When seen in the emergency room his blood pressure is also significantly elevated. He was given one dose of hydralazine without significant effect and another dose of enalapril and blood pressure now is very well-controlled. PAST MEDICAL HISTORY Significant for: 1. Multiple cancers in the past. He has recently had undergone a cryoablation for renal cell carcinoma apparently for cure. 2. He has had an excision for melanoma in the past, again for cure. 3. Prostate cancer 3 years ago which is in remission. 4. He has also had colon cancer in the past with operation for cure and as a result a ventral hernia. As noted above no prior history of heart failure or chest pain has been present. MEDICATIONS His medications at home have included: 1. Lasix 40 mg once a day. 2. Colchicine. 3. Coreg. 4. Losartan. ALLERGIES ARE TO CONTRAST MEDIA. PHYSICAL EXAMINATION VITAL SIGNS: His blood pressure is currently 110/70, pulse is 60 and regular. NECK: There is no neck vein distension. LUNGS: The lung reveal rales in both bases. CARDIOVASCULAR: Exam was regular rate and rhythm. There is no significant murmur present. ABDOMEN: Soft. There is no tenderness, organomegaly. The ventral hernia is present. EXTREMITIES: Reveal no edema. LABORATORY DATA Initial laboratory examination demonstrates slightly elevated troponin of 0.09 with a repeat of 0.12. Renal function demonstrates a creatinine of 1.37 with a BUN of 14. Electrolytes were normal. IMAGING A chest x-ray is consistent with mild congestive heart failure. His electrocardiogram shows sinus rhythm with first degree A-V block with minor nonspecific T-wave changes. While interviewing the patient, a run of what appeared to be paroxysmal atrial fibrillation was present. ASSESSMENT The patient has had an evidence for CHF. We will get an echocardiogram for further evaluation and follow his troponins. We will restart his Coreg in an effort to prevent PAF and consideration for anticoagulation will be done. Further recommendations will depend on the outcome of his echocardiogram. MD SURAJ Meier/KK /3:11 PM /6:05 PM
[2016-07-15] MEDS: POTASSIUM CHLORIDE 10 MEQ CAP PO SCH (20:46)
[2016-07-16] VITALS (16 sets, daily range): BP systolic 122–178; BP diastolic 66–110; PULSE 64–123; RESP 15–24; TEMP 98.4–98.8; O2SAT 89–95
[2016-07-16] MEDS: APIXABAN 5 MG TABLET PO SCH ×3 (00:12→23:33)
[2016-07-16] MEDS: INSULIN NovoLIN REGULAR SUPPLEMENTAL SCALE SQ SCH ×5 (00:12→23:34)
[2016-07-16] MEDS: RESP: ALBUTEROL 2.5 MG/IPRATROPIUM 0.5 MG NEB (SCH) INH ×7 (03:24→23:20)
[2016-07-16 03:39] LABS: AUTOMATED NEUTROPHIL # 4.9 TH/MM3 (1.8-7.7); BASOPHIL % 0.2 % (0.0-2.0); EOSINOPHIL % 0.5 % (0.0-4.0); HEMATOCRIT 31.8 % (39.0-51.0); HEMO FLAGS DIFF FINAL; LYMPH % 14.9 % (9.0-44.0); MEAN CELL VOLUME 89.7 FL (80.0-100.0); MEAN CORPUSCULAR HEMOGLOBIN 30.3 PG (27.0-34.0); MEAN CORPUSCULAR HGB CONC 33.8 % (32.0-36.0); MONO % 8.2 % (0.0-8.0); NEUT % 76.2 % (16.0-70.0); PLATELET COUNT 117 TH/MM3 (150-450); RED BLOOD COUNT 3.55 MIL/MM3 (4.50-5.90); RED CELL DISTRIBUTION WIDTH 15.9 % (11.6-17.2); WHITE BLOOD COUNT 6.4 TH/MM3 (4.0-11.0)
[2016-07-16] MEDS: CHLORHEXIDINE GLUCONATE 2 % 1 PACK (2 CLOTHS) TOP SCH ×2 (04:00→23:35)
[2016-07-16 04:15] LABS: BICARBONATE 28.4 MEQ/L (21.0-32.0); MAGNESIUM 1.7 MG/DL (1.5-2.5); POTASSIUM 3.8 MEQ/L (3.5-5.1)
--- NOTE | 2016-07-16 08:07 | PD.CARD.PN ---
Subjective Subjective Remarks Anxious. Breathing improved. No chest pain Objective Vital Signs / I&O Vital Signs Date Time Temp Pulse Resp B/P Pulse Ox O2 Delivery O2 Flow Rate FiO2 07/16/16 08:00 64 07/16/16 06:00 112 07/16/16 04:00 114 07/16/16 04:00 98.4 114 15 126/74 92 07/16/16 02:00 111 07/16/16 00:00 98.7 117 20 122/66 89 07/16/16 00:00 112 07/15/16 22:54 91 Nasal Cannula 6.00 07/15/16 22:00 115 07/15/16 20:04 94 Nasal Cannula 6.00 07/15/16 20:00 61 07/15/16 20:00 98.3 61 23 130/64 93 07/15/16 18:00 72 22 121/58 94 07/15/16 18:00 72 07/15/16 17:00 117 17 98/76 93 07/15/16 16:00 90 07/15/16 16:00 97.8 90 18 92/58 92 07/15/16 15:49 92 Nasal Cannula 6.00 07/15/16 15:00 114 22 101/58 98 07/15/16 14:00 78 24 141/80 100 07/15/16 14:00 78 07/15/16 13:45 97.6 84 17 130/81 96 07/15/16 12:32 72 15 132/68 BiPAP 07/15/16 12:06 96 40 07/15/16 10:17 100 50 07/15/16 10:07 99 60 07/15/16 09:11 88 199/129 Non-Rebreather 07/15/16 09:11 100 Non-Rebreather 13 07/15/16 08:18 79 28 214/128 07/15/16 08:18 28 90 Nasal Cannula 4 07/15/16 08:08 98.5 75 27 214/128 I/O 07/15/16 07/15/16 07/15/16 07/16/16 07/16/16 07/16/16 07:00 15:00 23:00 07:00 15:00 23:00 Intake Total 600 ml 400 ml Output Total 450 ml 600 ml 250 ml Balance -450 ml 0 ml 150 ml Intake Oral 600 ml 400 ml Output Urine Total 450 ml 600 ml 250 ml # Bowel Movements 0 Physical Exam Lungs clear.RRR sinus tach. +1-2 pedal edema Laboratory Laboratory Tests Test 07/15/16 07/15/16 07/15/16 07/15/16 08:30 11:20 13:16 13:45 White Blood Count 7.6 TH/MM3 Red Blood Count 4.20 MIL/MM3 Hemoglobin 12.9 GM/DL Hematocrit 38.7 % Mean Corpuscular Volume 92.2 FL Mean Corpuscular Hemoglobin 30.6 PG Mean Corpuscular Hemoglobin 33.2 % Concent Red Cell Distribution Width 16.3 % Platelet Count 148 TH/MM3 Mean Platelet Volume 10.5 FL Neutrophils (%) (Auto) 80.0 % Lymphocytes (%) (Auto) 12.3 % Monocytes (%) (Auto) 6.4 % Eosinophils (%) (Auto) 1.1 % Basophils (%) (Auto) 0.2 % Neutrophils # (Auto) 6.1 TH/MM3 Lymphocytes # (Auto) 0.9 TH/MM3 Monocytes # (Auto) 0.5 TH/MM3 Eosinophils # (Auto) 0.1 TH/MM3 Basophils # (Auto) 0.0 TH/MM3 CBC Comment DIFF FINAL Differential Comment Prothrombin Time 10.8 SEC Prothromb Time International 1.0 RATIO Ratio Activated Partial 26.6 SEC Thromboplast Time Sodium Level 137 MEQ/L Potassium Level 4.3 MEQ/L Chloride Level 99 MEQ/L Carbon Dioxide Level 27.9 MEQ/L Anion Gap 10 MEQ/L Blood Urea Nitrogen 14 MG/DL Creatinine 1.37 MG/DL Estimat Glomerular Filtration 51 ML/MIN Rate Random Glucose 199 MG/DL Calcium Level 8.8 MG/DL Total Creatine Kinase 117 U/L Creatine Kinase MB 3.2 NG/ML Troponin I 0.09 NG/ML 0.12 NG/ML Blood Gas Puncture Site RT RADIAL Blood Gas Patient Temperature 98.6 Blood Gas HCO3 26 mmol/L Blood Gas Base Excess 2.4 mmol/L Blood Gas Oxygen Saturation 94 % Arterial Blood pH 7.47 Arterial Blood Partial 36 mmHg Pressure CO2 Arterial Blood Partial 82 mmHG Pressure O2 Arterial Blood Oxygen Content 16.0 Vol % Arterial Blood 1.2 % Carboxyhemoglobin Arterial Blood Methemoglobin 0.8 % Blood Gas Hemoglobin 12.0 G/DL Oxygen Delivery Device BiPAP Blood Gas Ventilator Setting Blood Gas Inspired Oxygen 40 % Nasal Screen MRSA (PCR) NEGATIVE Test 07/15/16 07/16/16 18:19 03:07 Troponin I 0.15 NG/ML White Blood Count 6.4 TH/MM3 Red Blood Count 3.55 MIL/MM3 Hemoglobin 10.7 GM/DL Hematocrit 31.8 % Mean Corpuscular Volume 89.7 FL Mean Corpuscular Hemoglobin 30.3 PG Mean Corpuscular Hemoglobin 33.8 % Concent Red Cell Distribution Width 15.9 % Platelet Count 117 TH/MM3 Mean Platelet Volume 10.5 FL Neutrophils (%) (Auto) 76.2 % Lymphocytes (%) (Auto) 14.9 % Monocytes (%) (Auto) 8.2 % Eosinophils (%) (Auto) 0.5 % Basophils (%) (Auto) 0.2 % Neutrophils # (Auto) 4.9 TH/MM3 Lymphocytes # (Auto) 1.0 TH/MM3 Monocytes # (Auto) 0.5 TH/MM3 Eosinophils # (Auto) 0.0 TH/MM3 Basophils # (Auto) 0.0 TH/MM3 CBC Comment DIFF FINAL Differential Comment Sodium Level 139 MEQ/L Potassium Level 3.8 MEQ/L Chloride Level 101 MEQ/L Carbon Dioxide Level 28.4 MEQ/L Anion Gap 10 MEQ/L Blood Urea Nitrogen 14 MG/DL Creatinine 1.25 MG/DL Estimat Glomerular Filtration 56 ML/MIN Rate Random Glucose 135 MG/DL Calcium Level 8.4 MG/DL Phosphorus Level 3.1 MG/DL Magnesium Level 1.7 MG/DL Assessment and Plan Assessment and Plan I/O probably inaccurate. Appears to have good diuresis. Will continue. Ordered Xanax. Recheck chest x-ray tomorrow and consider lexiscan once CHF cleared Gilberto Beltran MD Jul 16, 2016 08:07
[2016-07-16] MEDS: PANTOPRAZOLE SODIUM 40 MG VIAL IV SCH (08:15)
[2016-07-16] MEDS: POTASSIUM CHLORIDE 10 MEQ CAP PO SCH ×2 (08:15→19:54)
[2016-07-16] MEDS ORDERED: FUROSEMIDE 40 MG/4 ML VIAL IV PUSH SCH (09:00)
[2016-07-16] MEDS: hydrALAZINE HCL 20 MG/ML VIAL IV PUSH PRN ×3 (09:12→21:55)
[2016-07-16] MEDS: ALPRAZolam 0.25 MG TAB PO PRN ×2 (09:13→19:54)
[2016-07-16] MEDS ORDERED: CARVEDILOL 3.125 MG TAB PO SCH (09:45)
--- NOTE | 2016-07-16 09:45 | HHI.CCPN ---
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 The patient presented to [facility] ED with a 2-day history of progressive worsening shortness of breath associated with edema of lower extremity and nausea. He denies any associated symptoms of chest pain, cough, fever, chills or any constitutional symptoms. He was scheduled to undergo stress test for review. He was scheduled to undergo stress test today as a preop cardiac clearance for his hernia surgery. However, due to shortness of breath. He was sent to the ER for further evaluation and management of his symptoms. The patient is known to Dr. Lance his outpatient community service aide. On arrival to the ED the patient was hypertensive with blood pressure of 214/128. Initially he was on 4 liters nasal cannula and was placed on BiPap 10/5 with 50% FIO2. Chest x-ray In the ER showed bibasilar patchiness, small right pleural effusion. Mild cardiomegaly and pulmonary infiltrates. In the ER he was given Lasix 80 mg IV push with good response in his urine output, in addition the patient was given hydralazine 10 mg, nitroglycerin 2 inches topical and Ativan 2 mg IV. When seen the patient remained on BiPap with a blood pressure of 238/164. He denies any emesis or abdominal pain. 07/16 Patient states he is breathing better denies any chest pain. On 6L oxygen, hypertensive. Objective Vital Signs Date Time Temp Pulse Resp B/P Pulse Ox O2 Delivery O2 Flow Rate FiO2 07/16/16 08:15 91 Nasal Cannula 6.00 07/16/16 08:00 64 07/16/16 08:00 98.6 16 169/110 07/15/16 12:06 40 Intake and Output 07/15/16 07/15/16 07/16/16 08:00 16:00 00:00 Intake Total 600 ml Output Total 450 ml 600 ml Balance -450 ml 0 ml Result Diagram: 07/16/16 0307 07/16/16 0307 Other Results Laboratory Tests Test 07/15/16 07/15/16 07/15/16 07/15/16 11:20 13:16 13:45 18:19 Blood Gas Puncture Site RT RADIAL Blood Gas Patient Temperature 98.6 Blood Gas HCO3 26 mmol/L Blood Gas Base Excess 2.4 mmol/L Blood Gas Oxygen Saturation 94 % Arterial Blood pH 7.47 Arterial Blood Partial 36 mmHg Pressure CO2 Arterial Blood Partial 82 mmHG Pressure O2 Arterial Blood Oxygen Content 16.0 Vol % Arterial Blood 1.2 % Carboxyhemoglobin Arterial Blood Methemoglobin 0.8 % Blood Gas Hemoglobin 12.0 G/DL Oxygen Delivery Device BiPAP Blood Gas Ventilator Setting Blood Gas Inspired Oxygen 40 % Troponin I 0.12 NG/ML 0.15 NG/ML Nasal Screen MRSA (PCR) NEGATIVE Test 07/16/16 03:07 White Blood Count 6.4 TH/MM3 Red Blood Count 3.55 MIL/MM3 Hemoglobin 10.7 GM/DL Hematocrit 31.8 % Mean Corpuscular Volume 89.7 FL Mean Corpuscular Hemoglobin 30.3 PG Mean Corpuscular Hemoglobin 33.8 % Concent Red Cell Distribution Width 15.9 % Platelet Count 117 TH/MM3 Mean Platelet Volume 10.5 FL Neutrophils (%) (Auto) 76.2 % Lymphocytes (%) (Auto) 14.9 % Monocytes (%) (Auto) 8.2 % Eosinophils (%) (Auto) 0.5 % Basophils (%) (Auto) 0.2 % Neutrophils # (Auto) 4.9 TH/MM3 Lymphocytes # (Auto) 1.0 TH/MM3 Monocytes # (Auto) 0.5 TH/MM3 Eosinophils # (Auto) 0.0 TH/MM3 Basophils # (Auto) 0.0 TH/MM3 CBC Comment DIFF FINAL Differential Comment Sodium Level 139 MEQ/L Potassium Level 3.8 MEQ/L Chloride Level 101 MEQ/L Carbon Dioxide Level 28.4 MEQ/L Anion Gap 10 MEQ/L Blood Urea Nitrogen 14 MG/DL Creatinine 1.25 MG/DL Estimat Glomerular Filtration 56 ML/MIN Rate Random Glucose 135 MG/DL Calcium Level 8.4 MG/DL Phosphorus Level 3.1 MG/DL Magnesium Level 1.7 MG/DL Imaging Last Impressions Chest X-Ray 07/15/16 5373 Signed Impressions: Service Date/Time: Friday, July 15, 2016 08:33 - CONCLUSION: 1. Bibasilar patchiness (right slightly worse than left) consistent with atelectasis and/or developing infiltrates. Clinical correlation is recommended. 2. Small right pleural effusion. 3. Mild cardiomegaly. 4. Degenerative changes and scoliosis of the thoracic spine. León Mckinney MD Objective Remarks GENERAL: Patient is lying in bed in NAD SKIN: Warm and dry. HEAD: Normocephalic. EYES: No scleral icterus. No injection or drainage. NECK: Supple, trachea midline. No JVD or lymphadenopathy. CARDIOVASCULAR: Regular rate and rhythm without murmurs, gallops, or rubs. RESPIRATORY: Breath sounds equal bilaterally. No accessory muscle use. GASTROINTESTINAL: Abdomen soft, non-tender, nondistended. MUSCULOSKELETAL: No cyanosis, o++ edema. Neuro: Awake and alert A/P Assessment and Plan 1. Respiratory insufficiency. 2. Hypertension 3. CHF 4. Mild acute kidney injury..resolved 5. Hyperglycemia with underlying history of diabetes mellitus. 6. Coronary artery disease. 7. Anemia 8. History of prostate cancer with previous radiation treatment. 9. History of melanoma of the right shoulder. 10. Chronic gout. 11. Papillary renal carcinoma diagnosed in April. Plan Neuro: Awake and alert avoid any sedatives. On Xanax 0.25mg BID/PRN for anxiety Pulm: Wean down oxygen as kiki and maintain sats > 92%. Bronchodilators, NIPPV p.r.n. for respiratory distress. Check CXR CV: Monitor HR and BP keep MAP>65mmHg Resume Coreg home med. On Lasix 40mg BID Echo showed EF 45% diffuse hypokinesis. Cards is following- Dr. Beltran, for Lexiscan once CHF is resolved. : Monitor renal function Is and Os and electrolyte replacement if needed On Lasix 40mg IV BID, KCL 10meq daily GI: on Protonix 40 mg daily for GI prophylaxis. On PO heart healthy diet ID: Monitor for signs of infections ( Fever, WBC) cultures if spikes fever. Heme: Monitor CBC Endo: SSI with Accu-Chek q. 6-hour for glycemic control. GI prophylaxis with Protonix 40 mg daily and DVT prophylaxis with SCDs placed on Eliquis 5mg Q12 by cards. Will sign off and transfer care to [facility] Level 3 Sreedhar Carvalho MD Jul 16, 2016 09:45
--- NOTE | 2016-07-16 11:18 | RADRPT ---
EXAM DATE/TIME: 07/16/2016 10:11 [facility] COMPARISON: CHEST SINGLE AP, July 15, 2016, 8:33. INDICATIONS: Shortness of breath; CHF. MEDICAL HISTORY: Carcinoma, prostatic. SURGICAL HISTORY: None. ENCOUNTER: Subsequent ACUITY: 2 days PAIN SCORE: 0/10 LOCATION: Bilateral chest FINDINGS: The heart is enlarged. Small bilateral pleural effusions are noted. Bibasilar patchiness is noted c onsistent with atelectasis and/or infiltrates. Degenerative changes are noted throughout thoracic sp ine. CONCLUSION: 1. Small bilateral pleural effusions and bibasilar consolidations. 2. Mild cardiomegaly. 3. Degenerative changes throughout the thoracic spine. León Mckinney MD on July 16, 2016 at 10:55 Board Certified Radiologist. This report was verified electronically.
[2016-07-16] MEDS: FUROSEMIDE 40 MG/4 ML VIAL IV PUSH SCH (18:14)
[2016-07-16] MEDS: SODIUM CHLORIDE 0.9% FLUSH 5 ML FLUSH IVF PRN (19:55)
[2016-07-16] MEDS ORDERED: ACETAMINOPHEN 325 MG TAB PO PRN (20:00)
[2016-07-16] MEDS: ZOLPIDEM TARTRATE 10 MG TAB PO PRN (20:23)
[2016-07-16] MEDS ORDERED: CARVEDILOL 6.25 MG TAB PO SCH (21:00)
[2016-07-16] MEDS ORDERED: LORazepam 2 MG/ML VIAL IV PUSH ONE (23:30)
[2016-07-17] VITALS (13 sets, daily range): BP systolic 113–204; BP diastolic 84–119; PULSE 56–135; RESP 14–31; TEMP 98–98.7; O2SAT 87–97
[2016-07-17] MEDS ORDERED: hydrALAZINE HCL 20 MG/ML VIAL IV ONE (02:30)
[2016-07-17] MEDS: RESP: ALBUTEROL 2.5 MG/IPRATROPIUM 0.5 MG NEB (SCH) INH ×5 (04:14→20:15)
[2016-07-17] MEDS: INSULIN NovoLIN REGULAR SUPPLEMENTAL SCALE SQ SCH ×4 (06:00→23:56)
[2016-07-17 06:04] LABS: AUTOMATED NEUTROPHIL # 5.6 TH/MM3 (1.8-7.7); BASOPHIL % 0.3 % (0.0-2.0); BICARBONATE 26.8 MEQ/L (21.0-32.0); EOSINOPHIL % 0.6 % (0.0-4.0); HEMATOCRIT 36.2 % (39.0-51.0); HEMO FLAGS DIFF FINAL; LYMPH % 11.2 % (9.0-44.0); LYMPHOCYTE # 0.8 TH/MM3 (1.0-4.8); MEAN CELL VOLUME 90.4 FL (80.0-100.0); MEAN CORPUSCULAR HEMOGLOBIN 30.6 PG (27.0-34.0); MEAN CORPUSCULAR HGB CONC 33.8 % (32.0-36.0); MONO % 9.5 % (0.0-8.0); NEUT % 78.4 % (16.0-70.0); PLATELET COUNT 149 TH/MM3 (150-450); POTASSIUM 3.4 MEQ/L (3.5-5.1); RED BLOOD COUNT 4.01 MIL/MM3 (4.50-5.90); WHITE BLOOD COUNT 7.1 TH/MM3 (4.0-11.0)
--- NOTE | 2016-07-17 06:09 | RADRPT ---
EXAM DATE/TIME: 07/17/2016 04:47 [facility] COMPARISON: CHEST SINGLE AP, July 16, 2016, 10:11. INDICATIONS : Shortness of breath, possible pulmonary disease. MEDICAL HISTORY : Carcinoma, prostatic. SURGICAL HISTORY : None. ENCOUNTER: Subsequent ACUITY: 3 days PAIN SCORE: 0/10 LOCATION: Bilateral chest FINDINGS: Bilateral consolidation and pleural effusions unchanged. Degenerative changes of the spine and cardio megaly. CONCLUSION: No significant change has occurred. Khai Small MD on July 17, 2016 at 6:07 Board Certified Radiologist. This report was verified electronically.
--- NOTE | 2016-07-17 07:49 | PD.CARD.PN ---
Subjective Subjective Remarks Feels better. No chest pain Objective Vital Signs / I&O Vital Signs Date Time Temp Pulse Resp B/P Pulse Ox O2 Delivery O2 Flow Rate FiO2 07/17/16 07:38 97 Venturi Mask 6.00 50 07/17/16 06:00 122 07/17/16 04:00 129 07/17/16 04:00 98.7 129 25 113/84 94 07/17/16 02:00 97 07/17/16 00:00 105 07/17/16 00:00 98.7 105 31 204/112 87 07/16/16 22:00 120 07/16/16 20:56 95 Venturi Mask 6.00 50 07/16/16 20:00 98.7 117 24 140/96 93 07/16/16 20:00 117 07/16/16 19:00 93 Nasal Cannula 6.00 07/16/16 18:00 110 07/16/16 16:00 98.8 123 20 149/80 94 07/16/16 16:00 110 07/16/16 14:00 110 07/16/16 12:01 98.6 64 16 178/95 92 07/16/16 12:00 110 07/16/16 10:30 93 Venturi Mask 6.00 50 07/16/16 10:00 64 07/16/16 08:15 91 Nasal Cannula 6.00 07/16/16 08:00 64 07/16/16 08:00 98.6 114 16 169/110 92 I/O 07/16/16 07/16/16 07/16/16 07/17/16 07/17/16 07/17/16 07:00 15:00 23:00 07:00 15:00 23:00 Intake Total 400 ml 380 ml 5 ml Output Total 250 ml 650 ml 1900 ml 400 ml Balance 150 ml -270 ml -1900 ml -395 ml Intake Oral 400 ml 380 ml IV Total 5 ml Output Urine Total 250 ml 650 ml 1900 ml 400 ml Physical Exam Lungs clear Irregular @ 120-130 no edema Laboratory Laboratory Tests Test 07/17/16 04:27 White Blood Count 7.1 TH/MM3 Red Blood Count 4.01 MIL/MM3 Hemoglobin 12.3 GM/DL Hematocrit 36.2 % Mean Corpuscular Volume 90.4 FL Mean Corpuscular Hemoglobin 30.6 PG Mean Corpuscular Hemoglobin 33.8 % Concent Red Cell Distribution Width 16.0 % Platelet Count 149 TH/MM3 Mean Platelet Volume 10.2 FL Neutrophils (%) (Auto) 78.4 % Lymphocytes (%) (Auto) 11.2 % Monocytes (%) (Auto) 9.5 % Eosinophils (%) (Auto) 0.6 % Basophils (%) (Auto) 0.3 % Neutrophils # (Auto) 5.6 TH/MM3 Lymphocytes # (Auto) 0.8 TH/MM3 Monocytes # (Auto) 0.7 TH/MM3 Eosinophils # (Auto) 0.0 TH/MM3 Basophils # (Auto) 0.0 TH/MM3 CBC Comment DIFF FINAL Differential Comment Sodium Level 139 MEQ/L Potassium Level 3.4 MEQ/L Chloride Level 101 MEQ/L Carbon Dioxide Level 26.8 MEQ/L Anion Gap 11 MEQ/L Blood Urea Nitrogen 13 MG/DL Creatinine 1.13 MG/DL Estimat Glomerular Filtration 63 ML/MIN Rate Random Glucose 185 MG/DL Calcium Level 8.9 MG/DL Assessment and Plan Assessment and Plan Chf much improved. Still has mild vascular congestion by Cxr. Continue IV lasix one more day. Increase potassium supplementation A fib with RVR present. Will D/c cardvedilol and begin metoprolol for rhythm control. Add apixiban for thromboembolic protection Will get lexiscan today to R/O occult CAD Gilberto Beltran MD Jul 17, 2016 07:49
[2016-07-17] MEDS: ARTIFICIAL TEARS OPTH SOLN 15 ML BTL EACH EYE PRN (08:05)
[2016-07-17] MEDS: PANTOPRAZOLE SODIUM 40 MG VIAL IV SCH (08:06)
[2016-07-17] MEDS: POTASSIUM CHLORIDE 10 MEQ CAP PO SCH ×2 (08:06→19:56)
[2016-07-17] MEDS: APIXABAN 5 MG TABLET PO SCH ×2 (08:06→19:56)
[2016-07-17] MEDS: FUROSEMIDE 40 MG/4 ML VIAL IV PUSH SCH ×2 (08:06→18:18)
[2016-07-17] MEDS: METOPROLOL TARTRATE 100 MG TAB PO SCH ×2 (08:06→19:56)
--- NOTE | 2016-07-17 08:55 | HHI.PR ---
Subjective Remarks doing better Objective Vitals heart irreg lung good air entry abd s/nt ext no edema mariscal Vital Signs Date Time Temp Pulse Resp B/P Pulse Ox O2 Delivery O2 Flow Rate FiO2 07/17/16 07:38 97 Venturi Mask 6.00 50 07/17/16 06:00 122 07/17/16 04:00 129 07/17/16 04:00 98.7 129 25 113/84 94 07/17/16 02:00 97 07/17/16 00:00 105 07/17/16 00:00 98.7 105 31 204/112 87 07/16/16 22:00 120 07/16/16 20:56 95 Venturi Mask 6.00 50 07/16/16 20:00 98.7 117 24 140/96 93 07/16/16 20:00 117 07/16/16 19:00 93 Nasal Cannula 6.00 07/16/16 18:00 110 07/16/16 16:00 98.8 123 20 149/80 94 07/16/16 16:00 110 07/16/16 14:00 110 07/16/16 12:01 98.6 64 16 178/95 92 07/16/16 12:00 110 07/16/16 10:30 93 Venturi Mask 6.00 50 07/16/16 10:00 64 07/16/16 07/16/16 07/17/16 15:00 23:00 07:00 Intake Total 380 ml 5 ml Output Total 650 ml 1900 ml 400 ml Balance -270 ml -1900 ml -395 ml Intake Oral 380 ml IV Total 5 ml Output Urine Total 650 ml 1900 ml 400 ml Result Diagram: 07/17/16 0427 07/17/16 0427 A/P Problem List: (1) Acute systolic CHF (congestive heart failure) Status: Acute Plan: Pt presented with severe htn, systolic chf exacerbation. afib/rvr cardiology following cont iv diuresis. check bmp bb adjusted today for rvr eliquis added. lexiscan today. (2) Afib Status: Acute Plan: see above (3) DM (diabetes mellitus) Status: Chronic Plan: ssi for now (4) Renal cell carcinoma Status: Chronic Plan: s/p cryoablation (5) HTN (hypertension) Status: Chronic Plan: cont current meds. (6) Anxiety Status: Chronic (7) BPH (benign prostatic hyperplasia) Status: Chronic Plan: terazosin (8) CAD (coronary artery disease) Status: Chronic Plan: ivan today Ronald Mike MD Jul 17, 2016 08:55
[2016-07-17] MEDS ORDERED: POTASSIUM CHLORIDE 20 MEQ CONTROLLED RELEASE TAB PO ONE (09:15)
[2016-07-17] MEDS: hydrALAZINE HCL 20 MG/ML VIAL IV PUSH PRN (09:32)
[2016-07-17] MEDS ORDERED: REGADENOSON INJ 0.4 MG/5 ML SYR ONE (10:53)
--- NOTE | 2016-07-17 14:30 | RADRPT ---
EXAM DATE/TIME: 07/17/2016 10:19 [facility] COMPARISON: No previous studies available for comparison. INDICATIONS : Dyspnea. Congestive heart failure. DOSE: 31.2 mCi Tc99m Myoview at stress. 10.3 mCi Tc99m Myoview at rest. 0.4 mg Lexiscan STRESS SYMPTOMS: Dizziness, nausea, and dyspnea. EJECTION FRACTION: 21% MEDICAL HISTORY : Myocardial infarction. Diabetes mellitus type 2. Hypercholesterolemia. Hypertension, diverticulitis, hiatal hernia, colon cancer and hypertension. SURGICAL HISTORY : Cholecystectomy. Tonsillectomy. Colon resection. ENCOUNTER: Initial ACUITY: 1 day PAIN SCALE: 0/10 LOCATION: chest TECHNIQUE: The patient underwent pharmacologic stress with infusion of prescribed dose. Continuous ECG tracing was monitored during stress. Gated SPECT imaging was performed after stress and conventional SPECT i maging was performed at rest. The examination was performed on a SPECT/CT scanner, both attenuation and non-corrected datasets were reviewed. FINDINGS: DISTRIBUTION: The maximum perfused segment at stress is in the septal wall. PERFUSION STUDY: The examination demonstrates a large, severe, fixed perfusion defect involving most of the anterior w all. No reversible perfusion defect is identified. There is dilation of the ventricular cavity. GATED STUDY: There is intact wall motion and thickening without hypokinetic or dyskinetic segments. CONCLUSION: 1. Large, fixed perfusion defect involving nearly the entire lateral wall. Findings would be consiste nt with a large area of infarct. No reversible perfusion abnormality identified. 2. Global hypokinesis with severely diminished ejection fraction at 21%. RISK CATEGORY: High (>3% Annual Mortality Rate) Nestor Estrella MD on July 17, 2016 at 14:27 Board Certified Radiologist. This report was verified electronically.
[2016-07-17] MEDS: ZOLPIDEM TARTRATE 10 MG TAB PO PRN (20:04)
[2016-07-17] MEDS: ALPRAZolam 0.25 MG TAB PO PRN (20:04)
[2016-07-17] MEDS: CHLORHEXIDINE GLUCONATE 2 % 1 PACK (2 CLOTHS) TOP SCH (23:57)
[2016-07-18] VITALS (14 sets, daily range): BP systolic 123–152; BP diastolic 80–108; PULSE 54–117; RESP 15–26; TEMP 98–98.5; O2SAT 90–98
[2016-07-18] MEDS: RESP: ALBUTEROL 2.5 MG/IPRATROPIUM 0.5 MG NEB (SCH) INH ×6 (03:56→20:00)
[2016-07-18] MEDS: INSULIN NovoLIN REGULAR SUPPLEMENTAL SCALE SQ SCH ×3 (06:00→17:32)
[2016-07-18 06:24] LABS: BICARBONATE 29.6 MEQ/L (21.0-32.0); POTASSIUM 3.3 MEQ/L (3.5-5.1)
--- NOTE | 2016-07-18 07:35 | PD.CARD.PN ---
Subjective Subjective Remarks denies shortness of breath Objective Vital Signs / I&O Vital Signs Date Time Temp Pulse Resp B/P Pulse Ox O2 Delivery O2 Flow Rate FiO2 07/18/16 06:00 109 07/18/16 04:00 112 07/18/16 04:00 98.4 112 23 152/83 91 07/18/16 02:00 112 07/18/16 00:05 Nasal Cannula 3.00 07/18/16 00:00 98.2 117 26 149/85 92 07/18/16 00:00 117 07/17/16 22:00 122 07/17/16 20:00 98.4 116 22 163/92 94 07/17/16 20:00 94 Nasal Cannula 3.00 07/17/16 20:00 116 07/17/16 18:00 113 07/17/16 16:00 96 07/17/16 16:00 98.2 113 18 163/119 93 07/17/16 14:00 56 07/17/16 12:00 98.0 56 14 143/97 96 07/17/16 12:00 56 07/17/16 09:30 62 24 165/108 97 07/17/16 08:00 98.0 135 24 156/108 94 07/17/16 08:00 135 07/17/16 07:38 97 Venturi Mask 6.00 50 I/O 07/17/16 07/17/16 07/17/16 07/18/16 07/18/16 07/18/16 07:00 15:00 23:00 07:00 15:00 23:00 Intake Total 5 ml 760 ml Output Total 400 ml 550 ml 1050 ml Balance -395 ml -550 ml -290 ml Intake Oral 750 ml IV Total 5 ml 10 ml Output Urine Total 400 ml 550 ml 1050 ml # Bowel Movements 1 Physical Exam GENERAL: Well-nourished, well-developed patient in no apparent distress. NECK: No JVD. No carotid bruit. CARDIOVASCULAR: tachycardia, regular rhythm. S1/S2 no murmur, rub, or gallop. RESPIRATORY: No accessory muscle use. Clear to auscultation. Breath sounds equal bilaterally. GASTROINTESTINAL: Abdomen soft, non-tender, nondistended. MUSCULOSKELETAL: Extremities without clubbing, cyanosis, or edema. Laboratory Laboratory Tests Test 07/18/16 04:37 Sodium Level 138 MEQ/L Potassium Level 3.3 MEQ/L Chloride Level 100 MEQ/L Carbon Dioxide Level 29.6 MEQ/L Anion Gap 8 MEQ/L Blood Urea Nitrogen 16 MG/DL Creatinine 1.28 MG/DL Estimat Glomerular Filtration 55 ML/MIN Rate Random Glucose 143 MG/DL Calcium Level 8.5 MG/DL Assessment and Plan Problem List: (1) CAD (coronary artery disease) (2) Afib (3) HTN (hypertension) Assessment and Plan CHF much improved, change Lasix to PO and replete K Heart rate does not appear well controlled on metoprolol 100 mg BID consider adding low dose digoxin If heart rate can be better controlled he could be discharged from a CV standpoint Jose Manuel Arnold Jul 18, 2016 07:35
[2016-07-18] MEDS ORDERED: POTASSIUM CHLORIDE 20 MEQ CONTROLLED RELEASE TAB PO ONE (07:45)
[2016-07-18] MEDS: PANTOPRAZOLE SODIUM 40 MG VIAL IV SCH (08:25)
[2016-07-18] MEDS: METOPROLOL TARTRATE 100 MG TAB PO SCH ×2 (08:25→20:17)
[2016-07-18] MEDS: APIXABAN 5 MG TABLET PO SCH ×2 (08:25→20:19)
[2016-07-18] MEDS: FUROSEMIDE 40 MG TAB PO SCH ×2 (08:25→17:32)
[2016-07-18] MEDS: POTASSIUM CHLORIDE 10 MEQ CAP PO SCH ×2 (08:26→20:18)
[2016-07-18] MEDS: DILTIAZEM HCL 30 MG TAB PO SCH ×4 (08:43→20:18)
--- NOTE | 2016-07-18 09:16 | HHI.PR ---
Subjective Remarks feeling better. Objective Vitals heart irreg lung improved air entry bony abd s/nt ext no edema Vital Signs Date Time Temp Pulse Resp B/P Pulse Ox O2 Delivery O2 Flow Rate FiO2 07/18/16 08:21 96 Nasal Cannula 3.00 07/18/16 08:00 113 07/18/16 08:00 98.5 113 20 149/93 98 07/18/16 07:00 96 Nasal Cannula 3.00 07/18/16 06:00 109 07/18/16 04:00 112 07/18/16 04:00 98.4 112 23 152/83 91 07/18/16 02:00 112 07/18/16 00:05 Nasal Cannula 3.00 07/18/16 00:00 98.2 117 26 149/85 92 07/18/16 00:00 117 07/17/16 22:00 122 07/17/16 20:00 98.4 116 22 163/92 94 07/17/16 20:00 94 Nasal Cannula 3.00 07/17/16 20:00 116 07/17/16 18:00 113 07/17/16 16:00 96 07/17/16 16:00 98.2 113 18 163/119 93 07/17/16 14:00 56 07/17/16 12:00 98.0 56 14 143/97 96 07/17/16 12:00 56 07/17/16 09:30 62 24 165/108 97 07/17/16 07/17/16 07/18/16 15:00 23:00 07:00 Intake Total 760 ml Output Total 550 ml 1050 ml Balance -550 ml -290 ml Intake Oral 750 ml IV Total 10 ml Output Urine Total 550 ml 1050 ml # Bowel Movements 1 Result Diagram: 07/17/16 0427 07/18/16 0437 A/P Problem List: (1) Acute systolic CHF (congestive heart failure) Status: Acute Plan: Pt presented with severe htn, systolic chf exacerbation. afib/rvr ivan shows infarcted lat wall but no reversible ischemia chf status better today but afib not well controlled transfer to [facility] cardiology continues bb and added ccb monitor fluid balance and hr over the weekend. cont eliquis iv to po lasix ordered (2) Afib Status: Acute Plan: see above (3) DM (diabetes mellitus) Status: Chronic Plan: ssi for now (4) Renal cell carcinoma Status: Chronic Plan: s/p cryoablation (5) HTN (hypertension) Status: Chronic Plan: cont current meds. (6) Anxiety Status: Chronic (7) BPH (benign prostatic hyperplasia) Status: Chronic Plan: terazosin (8) CAD (coronary artery disease) Status: Chronic Plan: ivan today Ronald Mike MD Jul 18, 2016 09:16
[2016-07-18] MEDS ORDERED: ONDANSETRON HCL 4 MG/2 ML VIAL IV PUSH PRN (18:45)
[2016-07-18] MEDS: ALPRAZolam 0.25 MG TAB PO PRN (20:18)
[2016-07-18] MEDS: ACETAMINOPHEN/HYDROcodone 325 MG/5 MG TAB PO PRN (20:18)
[2016-07-18] MEDS: TEMAZEPAM 15 MG CAP PO PRN (20:19)
[2016-07-19] VITALS (15 sets, daily range): BP systolic 135–146; BP diastolic 60–82; PULSE 57–112; RESP 16–25; TEMP 98.1–98.5; O2SAT 92–99
[2016-07-19] MEDS: hydrALAZINE HCL 20 MG/ML VIAL IV PUSH PRN (03:10)
[2016-07-19] MEDS: CHLORHEXIDINE GLUCONATE 2 % 1 PACK (2 CLOTHS) TOP SCH (04:00)
[2016-07-19] MEDS: RESP: ALBUTEROL 2.5 MG/IPRATROPIUM 0.5 MG NEB (SCH) INH ×4 (04:00→10:55)
[2016-07-19 05:30] LABS: BICARBONATE 27.2 MEQ/L (21.0-32.0); POTASSIUM 3.5 MEQ/L (3.5-5.1)
[2016-07-19] MEDS: INSULIN NovoLIN REGULAR SUPPLEMENTAL SCALE SQ SCH ×5 (06:00→23:27)
--- NOTE | 2016-07-19 08:38 | HHI.PR ---
Subjective Remarks doing ok. anxious. no new problems Objective Vitals heart irreg lung good air entry abd s/nt ext no Vital Signs Date Time Temp Pulse Resp B/P Pulse Ox O2 Delivery O2 Flow Rate FiO2 07/19/16 08:26 93 21 07/19/16 06:00 107 07/19/16 04:00 98.5 105 22 135/82 94 07/19/16 04:00 105 07/19/16 02:00 57 07/19/16 00:00 98 07/19/16 00:00 98.4 98 16 139/65 99 07/18/16 22:00 99 07/18/16 20:00 98.3 54 15 141/80 92 07/18/16 20:00 54 07/18/16 19:00 92 Nasal Cannula 3.00 07/18/16 18:00 108 07/18/16 16:00 58 07/18/16 16:00 98.1 108 22 149/108 90 07/18/16 14:00 61 07/18/16 12:00 98.0 86 16 123/101 90 07/18/16 12:00 86 07/18/16 10:55 93 21 07/18/16 10:00 109 07/18/16 07/18/16 07/19/16 15:00 23:00 07:00 Intake Total 555 ml 105 ml Output Total 625 ml 1000 ml 1000 ml Balance -625 ml -445 ml -895 ml Intake Oral 550 ml 100 ml IV Total 5 ml 5 ml Output Urine Total 625 ml 1000 ml 1000 ml # Bowel Movements 1 Result Diagram: 07/17/16 0427 07/19/16 0402 A/P Problem List: (1) Acute systolic CHF (congestive heart failure) Status: Acute Plan: Pt presented with severe htn, systolic chf exacerbation. afib/rvr ivan shows infarcted lat wall but no reversible ischemia chf status better today but afib not well controlled transfer to [facility] pending cardiology continues bb and added ccb..might need to increase ccb if hr remains above 100 monitor fluid balance and hr over the weekend. cont eliquis po lasix. PT (2) Afib Status: Acute Plan: see above (3) DM (diabetes mellitus) Status: Chronic Plan: ssi for now (4) Renal cell carcinoma Status: Chronic Plan: s/p cryoablation (5) HTN (hypertension) Status: Chronic Plan: cont current meds. (6) Anxiety Status: Chronic (7) BPH (benign prostatic hyperplasia) Status: Chronic Plan: terazosin (8) CAD (coronary artery disease) Status: Chronic Plan: ivan today Ronald Mike MD Jul 19, 2016 08:38
[2016-07-19] MEDS ORDERED: POTASSIUM CHLORIDE 20 MEQ CONTROLLED RELEASE TAB PO ONE (09:00)
[2016-07-19] MEDS: ARTIFICIAL TEARS OPTH SOLN 15 ML BTL EACH EYE PRN (09:11)
[2016-07-19] MEDS: APIXABAN 5 MG TABLET PO SCH ×2 (09:12→20:45)
[2016-07-19] MEDS: SODIUM CHLORIDE 0.9% FLUSH 5 ML FLUSH IVF PRN (09:12)
[2016-07-19] MEDS: POTASSIUM CHLORIDE 10 MEQ CAP PO SCH (09:12)
[2016-07-19] MEDS: DILTIAZEM HCL 30 MG TAB PO SCH ×4 (09:12→20:34)
[2016-07-19] MEDS: METOPROLOL TARTRATE 100 MG TAB PO SCH ×2 (09:13→20:35)
[2016-07-19] MEDS: PANTOPRAZOLE SODIUM 40 MG VIAL IV SCH (09:13)
[2016-07-19] MEDS: FUROSEMIDE 40 MG TAB PO SCH ×2 (09:13→16:52)
[2016-07-19] MEDS: ACETAMINOPHEN/HYDROcodone 325 MG/5 MG TAB PO PRN (10:47)
--- NOTE | 2016-07-19 11:27 | PD.CARD.PN ---
Subjective Subjective Remarks no complaints Objective Medications Current Medications Medications (Trade) Dose Ordered Sig/Fiordaliza Route Start Time Stop Time Status Last Admin (NS Flush) 2 ml UNSCH PRN IVF 07/15/16 08:30 07/19/16 09:12 (Protonix Inj) 40 mg DAILY IV 07/15/16 12:00 07/19/16 09:13 Miscellaneous Information 1 Q361D XX 07/15/16 11:15 (Chlorhexidine 2% Cloth) 3 pack Taper DAILY@04 TOP 07/16/16 04:00 07/12/17 03:59 07/17/16 23:57 (Chlorhexidine 2% Cloth) 3 pack UNSCH PRN TOP 07/15/16 11:15 07/16/16 19:54 (D50w (Vial) Inj) 25 ml UNSCH PRN IV PUSH 07/15/16 11:15 (Glucagon Inj) 1 mg UNSCH PRN OTHER 07/15/16 11:15 (NovoLIN R SUPPLEMENTAL SCALE) 1 Q6H SQ 07/15/16 12:00 07/18/16 17:32 (Apresoline Inj) 10 mg Q6H PRN IV PUSH 07/15/16 11:15 07/19/16 03:10 (Xanax) 0.25 mg BID PRN PO 07/16/16 08:15 07/18/16 20:18 (Tears Naturale Opth Soln) 1 drop Q4H PRN EACH EYE 07/16/16 20:00 07/19/16 09:11 (Tylenol) 650 mg Q4H PRN PO 07/16/16 20:00 07/16/16 20:23 (Lopressor) 100 mg Q12HR PO 07/17/16 09:00 07/19/16 09:13 (Eliquis) 5 mg BID PO 07/17/16 09:00 07/19/16 09:12 (KCl) 20 meq BID PO 07/18/16 09:00 07/19/16 09:12 (Lasix) 40 mg BID@,18 PO 07/18/16 09:00 07/19/16 09:13 (Cardizem) 30 mg QID PO 07/18/16 09:00 07/19/16 09:12 (Restoril) 30 mg HS PRN PO 07/18/16 21:00 07/18/16 20:19 ([place] 5-325 Mg) 1 tab Q4H PRN PO 07/18/16 18:45 07/19/16 10:47 (Zofran Inj) 4 mg Q4H PRN IV PUSH 07/18/16 18:45 Vital Signs / I&O Vital Signs Date Time Temp Pulse Resp B/P Pulse Ox O2 Delivery O2 Flow Rate FiO2 07/19/16 08:26 93 21 07/19/16 06:00 107 07/19/16 04:00 98.5 105 22 135/82 94 07/19/16 04:00 105 07/19/16 02:00 57 07/19/16 00:00 98 07/19/16 00:00 98.4 98 16 139/65 99 07/18/16 22:00 99 07/18/16 20:00 98.3 54 15 141/80 92 07/18/16 20:00 54 07/18/16 19:00 92 Nasal Cannula 3.00 07/18/16 18:00 108 07/18/16 16:00 58 07/18/16 16:00 98.1 108 22 149/108 90 07/18/16 14:00 61 07/18/16 12:00 98.0 86 16 123/101 90 07/18/16 12:00 86 I/O 07/18/16 07/18/16 07/18/16 07/19/16 07/19/16 07/19/16 07:00 15:00 23:00 07:00 15:00 23:00 Intake Total 760 ml 555 ml 105 ml Output Total 1050 ml 625 ml 1000 ml 1000 ml Balance -290 ml -625 ml -445 ml -895 ml Intake Oral 750 ml 550 ml 100 ml IV Total 10 ml 5 ml 5 ml Output Urine Total 1050 ml 625 ml 1000 ml 1000 ml # Bowel Movements 1 Physical Exam Obese, in NAD Chest dimished at bases CV: rhtyhm varies from AF 120 to sinus cristela at 50 Abd soft Ext no edema K+ has not been above 4 Laboratory Laboratory Tests Test 07/19/16 04:02 Sodium Level 138 MEQ/L Potassium Level 3.5 MEQ/L Chloride Level 102 MEQ/L Carbon Dioxide Level 27.2 MEQ/L Anion Gap 9 MEQ/L Blood Urea Nitrogen 18 MG/DL Creatinine 1.17 MG/DL Estimat Glomerular Filtration 61 ML/MIN Rate Random Glucose 123 MG/DL Calcium Level 8.8 MG/DL Assessment and Plan Problem List: (1) CAD (coronary artery disease) (2) Afib (3) HTN (hypertension) (4) Tachy-cristela syndrome Assessment and Plan: Manifesting as AF RVR alternating with sinus cristela. He will need either AF ablation or DDD pacer - not safe to up negative chronotropic meds, Will discuss with my EP colleague Dr. Saxena (he's not field contact technician so not sure yet when i can discuss with him) Glen Jimenez MD Jul 19, 2016 11:27
[2016-07-19] MEDS: POTASSIUM CHLORIDE 20 MEQ CONTROLLED RELEASE TAB PO SCH ×2 (12:56→16:51)
[2016-07-19] MEDS ORDERED: LOPERAMIDE HCL 2 MG CAP PO ONE (17:15)
[2016-07-19] MEDS: ALPRAZolam 0.25 MG TAB PO PRN (20:44)
[2016-07-19] MEDS: TEMAZEPAM 15 MG CAP PO PRN (20:44)
[2016-07-20] VITALS (23 sets, daily range): BP systolic 131–156; BP diastolic 75–94; PULSE 44–79; RESP 18–20; TEMP 97.6–98.9; O2SAT 92–97
[2016-07-20 00:13] LABS: C. DIFF EPI 027 PRESUMPTIVE NEGATIVE (NEGATIVE); C. DIFF TOXIN PCR NEGATIVE (NEGATIVE)
[2016-07-20] MEDS: CHLORHEXIDINE GLUCONATE 2 % 1 PACK (2 CLOTHS) TOP SCH (04:00)
--- NOTE | 2016-07-20 04:32 | RADRPT ---
EXAM DATE/TIME: 07/20/2016 03:40 [facility] COMPARISON: CHEST SINGLE AP, July 17, 2016, 4:47. INDICATIONS : Shortness of breath, possible pulmonary disease. MEDICAL HISTORY : Carcinoma, prostatic. SURGICAL HISTORY : None. ENCOUNTER: Subsequent ACUITY: 4 - 6 days PAIN SCORE: 0/10 LOCATION: Bilateral chest FINDINGS: A single portable frontal view of the chest shows intraalveolar infiltrates within the medial lung ba ses bilaterally. These have improved. A tiny left effusion which is also improved. No effusions seen on the right. Heart is mildly enlarged but stable. CONCLUSION: Improving bibasilar pulmonary infiltrates and small left effusion. The right effusion has resolved. Augustus Young Jr., MD on July 20, 2016 at 4:30 Board Certified Radiologist. This report was verified electronically.
[2016-07-20] MEDS: INSULIN NovoLIN REGULAR SUPPLEMENTAL SCALE SQ SCH ×3 (06:00→18:22)
[2016-07-20 08:05] LABS: BICARBONATE 28.8 MEQ/L (21.0-32.0)
[2016-07-20] MEDS: PANTOPRAZOLE SODIUM 40 MG VIAL IV SCH (08:25)
[2016-07-20] MEDS: DILTIAZEM HCL 30 MG TAB PO SCH ×2 (08:25→12:01)
[2016-07-20] MEDS: APIXABAN 5 MG TABLET PO SCH ×2 (08:25→20:05)
[2016-07-20] MEDS: METOPROLOL TARTRATE 100 MG TAB PO SCH ×2 (08:28→20:05)
[2016-07-20] MEDS: FUROSEMIDE 40 MG TAB PO SCH (08:28)
[2016-07-20] MEDS: POTASSIUM CHLORIDE 20 MEQ CONTROLLED RELEASE TAB PO SCH ×3 (08:28→18:22)
--- NOTE | 2016-07-20 08:43 | HHI.PR ---
Subjective Remarks diarrhea resolved no sob. no cp Objective Vitals nad anxious heart irreg lung cta abd s/nt ext no edema mariscal Vital Signs Date Time Temp Pulse Resp B/P Pulse Ox O2 Delivery O2 Flow Rate FiO2 07/20/16 07:00 59 07/20/16 06:00 66 07/20/16 05:00 58 07/20/16 04:00 56 07/20/16 04:00 Room Air 07/20/16 04:00 98.0 56 18 131/94 94 07/20/16 03:00 60 07/20/16 02:02 58 07/20/16 01:00 62 07/20/16 00:00 66 07/20/16 00:00 Room Air 07/20/16 00:00 98.0 66 18 136/76 92 07/19/16 23:00 65 07/19/16 22:00 57 07/19/16 21:00 67 07/19/16 20:00 61 07/19/16 20:00 Room Air 07/19/16 20:00 98.3 61 20 145/81 95 07/19/16 18:00 110 07/19/16 16:00 98.4 106 23 138/78 92 07/19/16 16:00 110 07/19/16 14:00 110 07/19/16 12:00 98.3 112 25 145/60 95 07/19/16 12:00 110 07/19/16 10:00 100 07/19/16 07/19/16 07/20/16 15:00 23:00 07:00 Intake Total 360 ml 245 ml Output Total 950 ml 900 ml Balance -590 ml -655 ml Intake Oral 360 ml 240 ml IV Total 5 ml Output Urine Total 950 ml 900 ml # Bowel Movements 5 1 Result Diagram: 07/17/16 0427 07/20/16 0658 A/P Problem List: (1) Acute systolic CHF (congestive heart failure) Status: Acute Plan: Pt presented with severe htn, systolic chf exacerbation. afib/rvr ivan shows infarcted lat wall but no reversible ischemia chf status better today but afib not well controlled cardiology continues bb and added ccb.. question of pm was raised. decide tomorrow if further med adjustment needed. monitor fluid balance and hr over the weekend. cont eliquis po lasix. PT d/c mariscal in AM. (2) Afib Status: Acute Plan: see above (3) DM (diabetes mellitus) Status: Chronic Plan: ssi for now (4) Renal cell carcinoma Status: Chronic Plan: s/p cryoablation (5) HTN (hypertension) Status: Chronic Plan: cont current meds. (6) Anxiety Status: Chronic (7) BPH (benign prostatic hyperplasia) Status: Chronic Plan: terazosin (8) CAD (coronary artery disease) Status: Chronic Plan: ivan today Ronald Mike MD Jul 20, 2016 08:42
--- NOTE | 2016-07-20 10:30 | PD.CARD.PN ---
Subjective Subjective Remarks Some atypical left upper chest discomfort left upper chest for 30'. No typical angina. Stressed out over property in [place] Objective Medications Current Medications Medications (Trade) Dose Ordered Sig/Fiordaliza Route Start Time Stop Time Status Last Admin (NS Flush) 2 ml UNSCH PRN IVF 07/15/16 08:30 07/19/16 09:12 (Protonix Inj) 40 mg DAILY IV 07/15/16 12:00 07/20/16 08:25 Miscellaneous Information 1 Q361D XX 07/15/16 11:15 (Chlorhexidine 2% Cloth) 3 pack Taper DAILY@04 TOP 07/16/16 04:00 07/12/17 03:59 07/17/16 23:57 (Chlorhexidine 2% Cloth) 3 pack UNSCH PRN TOP 07/15/16 11:15 07/16/16 19:54 (D50w (Vial) Inj) 25 ml UNSCH PRN IV PUSH 07/15/16 11:15 (Glucagon Inj) 1 mg UNSCH PRN OTHER 07/15/16 11:15 (NovoLIN R SUPPLEMENTAL SCALE) 1 Q6H SQ 07/15/16 12:00 07/19/16 23:27 (Apresoline Inj) 10 mg Q6H PRN IV PUSH 07/15/16 11:15 07/19/16 03:10 (Xanax) 0.25 mg BID PRN PO 07/16/16 08:15 07/19/16 20:44 (Tears Naturale Opth Soln) 1 drop Q4H PRN EACH EYE 07/16/16 20:00 07/19/16 09:11 (Tylenol) 650 mg Q4H PRN PO 07/16/16 20:00 07/16/16 20:23 (Lopressor) 100 mg Q12HR PO 07/17/16 09:00 07/20/16 08:28 (Eliquis) 5 mg BID PO 07/17/16 09:00 07/20/16 08:25 (Cardizem) 30 mg QID PO 07/18/16 09:00 07/20/16 08:25 (Restoril) 30 mg HS PRN PO 07/18/16 21:00 07/19/16 20:44 (Oxford 5-325 Mg) 1 tab Q4H PRN PO 07/18/16 18:45 07/19/16 10:47 (Zofran Inj) 4 mg Q4H PRN IV PUSH 07/18/16 18:45 (KCl) 20 meq TID PO 07/19/16 13:00 07/20/16 08:28 (Lasix) 20 mg BID@09,18 PO 07/21/16 09:00 Vital Signs / I&O Vital Signs Date Time Temp Pulse Resp B/P Pulse Ox O2 Delivery O2 Flow Rate FiO2 07/20/16 09:00 62 07/20/16 08:00 63 07/20/16 08:00 93 Room Air 07/20/16 08:00 98.9 63 20 138/75 93 07/20/16 07:00 59 07/20/16 06:00 66 07/20/16 05:00 58 07/20/16 04:00 56 07/20/16 04:00 Room Air 07/20/16 04:00 98.0 56 18 131/94 94 07/20/16 03:00 60 07/20/16 02:02 58 07/20/16 01:00 62 07/20/16 00:00 66 07/20/16 00:00 Room Air 07/20/16 00:00 98.0 66 18 136/76 92 07/19/16 23:00 65 07/19/16 22:00 57 07/19/16 21:00 67 07/19/16 20:00 61 07/19/16 20:00 Room Air 07/19/16 20:00 98.3 61 20 145/81 95 07/19/16 18:00 110 07/19/16 16:00 98.4 106 23 138/78 92 07/19/16 16:00 110 07/19/16 14:00 110 07/19/16 12:00 98.3 112 25 145/60 95 07/19/16 12:00 110 I/O 07/19/16 07/19/16 07/19/16 07/20/16 07/20/16 07/20/16 07:00 15:00 23:00 07:00 15:00 23:00 Intake Total 105 ml 360 ml 245 ml Output Total 1000 ml 950 ml 900 ml Balance -895 ml -590 ml -655 ml Intake Oral 100 ml 360 ml 240 ml IV Total 5 ml 5 ml Output Urine Total 1000 ml 950 ml 900 ml # Bowel Movements 5 1 Physical Exam Obese, in NAD Chest clear CV: S1S2 irr irr, rhythm has lately been primarily AF with CVR Abd soft Ext no edema Laboratory Laboratory Tests Test 07/19/16 07/20/16 20:20 06:58 Stool C. difficile Toxin (PCR) NEGATIVE Stl C. difficile Toxin PRESUMPTIVE Epiderm 027 NEGATIVE Sodium Level 138 MEQ/L Potassium Level 4.0 MEQ/L Chloride Level 100 MEQ/L Carbon Dioxide Level 28.8 MEQ/L Anion Gap 9 MEQ/L Blood Urea Nitrogen 20 MG/DL Creatinine 1.37 MG/DL Estimat Glomerular Filtration 51 ML/MIN Rate Random Glucose 157 MG/DL Calcium Level 8.5 MG/DL Imaging Last 48 hours Impressions Chest X-Ray 07/20/16 0600 Signed Impressions: Service Date/Time: Wednesday, July 20, 2016 03:40 - CONCLUSION: Improving bibasilar pulmonary infiltrates and small left effusion. The right effusion has resolved. Augustus Young Jr., MD Assessment and Plan Problem List: (1) CAD (coronary artery disease) Assessment and Plan: no typical angina. SPECT fixed defect (2) Afib Assessment and Plan: rate better controlled. Will see what Dr. Saxena recommends (3) HTN (hypertension) (4) Tachy-cristela syndrome Glen Jimenez MD Jul 20, 2016 10:30
[2016-07-20] MEDS: ALPRAZolam 0.25 MG TAB PO PRN (12:01)
[2016-07-20] MEDS ORDERED: FUROSEMIDE 20 MG TAB PO SCH (18:00)
[2016-07-20] MEDS: TEMAZEPAM 15 MG CAP PO PRN (20:05)
[2016-07-20] MEDS: ACETAMINOPHEN/HYDROcodone 325 MG/5 MG TAB PO PRN (20:06)
[2016-07-21] VITALS (25 sets, daily range): BP systolic 130–163; BP diastolic 75–105; PULSE 63–120; RESP 18–20; TEMP 97.8–98.9; O2SAT 90–96
[2016-07-21] MEDS: ACETAMINOPHEN/HYDROcodone 325 MG/5 MG TAB PO PRN (00:20)
[2016-07-21] MEDS: ALPRAZolam 0.25 MG TAB PO PRN ×2 (00:20→15:36)
[2016-07-21] MEDS: INSULIN NovoLIN REGULAR SUPPLEMENTAL SCALE SQ SCH ×4 (00:21→18:00)
[2016-07-21] MEDS: CHLORHEXIDINE GLUCONATE 2 % 1 PACK (2 CLOTHS) TOP SCH (04:00)
[2016-07-21 05:20] LABS: BICARBONATE 27.4 MEQ/L (21.0-32.0)
--- NOTE | 2016-07-21 08:31 | MB ---
cc: CHUN BENAVIDES M.D., HANSCY M.D. DATE OF CONSULTATION: 07/21/2016 REASON FOR CONSULTATION Atrial fibrillation, tachybrady, unable to control heart rate. HISTORY OF PRESENT ILLNESS Mr. Ellison is a 75-year-old gentleman with a history of coronary artery disease, previous myocardial infarction around 10 years ago. Apparently at that time no angioplasty was performed because of severe occlusion. The gentleman has had multiple cancers. He has renal cell carcinoma that was ablated. Also he has melanoma. He has a history of prostate cancer. He has previous colon cancer surgery. The gentleman was admitted on the due to shortness of breath and tachyarrhythmia. He was found with atrial fibrillation with rapid ventricular response. Heart rate was very difficult to control. Also he had some episode of bradycardia. I was consulted for further evaluation and management. The chart was reviewed. The patient was evaluated. ALLERGIES 1. CONTRAST. 2. SHELLFISH. 3. THE PATIENT REFERS IODINE GIVES HIM SOME TINGLING AND RASH IN THE LEGS. FAMILY HISTORY Noncontributory to his current medical condition. MEDICATIONS Currently the patient is on: 1. Acetaminophen. 2. Albuterol inhaler. 3. Eliquis 5 mg twice a day. 4. Cardizem 30 mg four times a day that was on hold. 5. Lasix 20 mg twice a day. 6. Metoprolol 100 mg twice a day. 7. Protonix. 8. Potassium. 9. Restoril. REVIEW OF SYSTEMS The patient refers no chest pain. Shortness of breath on minimal activity. No chest discomfort. No vomiting. No fever. PHYSICAL EXAMINATION GENERAL: Alert, fully oriented, in bed. VITAL SIGNS: Blood pressure 142/85, pulse on the monitor currently is 118, respiratory rate 20. LUNGS: Ventilated. CARDIOVASCULAR: S1, S2, tachycardic, regular. ABDOMEN: Soft. No mass. No bruit. EXTREMITIES: No edema. ELECTROCARDIOGRAM Electrocardiogram from July 15 indicates what appears to be sinus cristela, PVC, diffuse ST changes. LABORATORY Hemoglobin 12.3, white blood cell count 7.1. Potassium 4.0. Creatinine 1.44, on admission was 1.13. INR 1.0. ASSESSMENT AND RECOMMENDATION Mr. Ellison has atrial fibrillation with rapid ventricular response. There are some rapid bursts of tachyarrhythmia followed by sinus rhythm. This is most likely pulmonary vein firing. The gentleman is unresponsive to medication. He is on Cardizem as well as metoprolol. Because of severe bradycardia when in sinus rhythm Cardizem was discontinued. He is on Eliquis. The last dose was last night. Also, his ejection fraction is 21%. 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 At this point my recommendation is atrial fibrillation ablation and pulmonary vein isolation. Based on the patient 's possible pulmonary vein tachyarrhythmia he is going to be less likely responsive to medication. The risks, the nature and the benefit of the procedure were clearly stated to him and his family. The risks include pneumothorax, cardiac perforation, stroke and even . They understand and agree to proceed. They also understand patient can need at least two procedures. Because of Eliquis last night the earliest the procedure can be done will be tomorrow. Also ejection fraction 21%. As mentioned he is most likely tachy-cristela. The gentleman is going to need a defibrillatory vest before discharge home and repeat echo in 60 days. Cardizem is on hold right now. I am going to initiate amiodarone at a very small dose, 200 mg a day. Apparently there is minimal reaction to iodine. The gentleman will be monitored. His condition is of care. Luana Saxena MD HS/BT /7:58 AM /8:19 AM JOSEE
[2016-07-21] MEDS: POTASSIUM CHLORIDE 20 MEQ CONTROLLED RELEASE TAB PO SCH ×2 (08:48→14:19)
[2016-07-21] MEDS: AMIODARONE 200 MG TAB PO SCH (08:48)
[2016-07-21] MEDS: METOPROLOL TARTRATE 100 MG TAB PO SCH ×2 (08:48→21:24)
[2016-07-21] MEDS: PANTOPRAZOLE SODIUM 40 MG VIAL IV SCH (08:49)
[2016-07-21] MEDS ORDERED: FUROSEMIDE 20 MG TAB PO SCH (09:00)
--- NOTE | 2016-07-21 14:38 | EC ---
Study Study Date:07/21/2016 STUDY CONCLUSIONS SUMMARY - Left ventricle: The cavity size was mildly dilated. Wall thickness was normal. Systolic function was moderately reduced. The estimated ejection fraction was in the range of 40% to 45%. Diffuse hypokinesis. - Mitral valve: Mild regurgitation. - Left atrium: The atrium was mildly dilated. If LV function is below 40, please consider prescribing an ACEI or ARB or document rationale for non-use. PROCEDURE DATA STUDY STATUS: Elective. Procedure: Transthoracic echocardiography. Image quality was good. Scanning was performed from the parasternal, apical, and subcostal acoustic windows. Study completion: The patient tolerated the procedure well. Transthoracic echocardiography. M-mode, complete 2D, complete spectral Doppler, and color Doppler. Height: Height: 67in. Weight: Weight: 219.5lb. Body mass index: BMI: 34.5kg/m^2. Body surface area: BSA: 2.11m^2. Patient status: Inpatient. CARDIAC ANATOMY LEFT VENTRICLE: The cavity size was mildly dilated. Wall thickness was normal. Systolic function was moderately reduced. The estimated ejection fraction was in the range of 40% to 45%. Diffuse hypokinesis. AORTIC VALVE: Mildly thickened leaflets. Doppler: There was no stenosis. No significant regurgitation. Valve area: 2cm^2 (Vmax). Indexed valve area: 0.95cm^2/m^2 (Vmax). MITRAL VALVE: Mildly calcified leaflets, . Doppler: There was no evidence for stenosis. Mild regurgitation. LEFT ATRIUM: The atrium was mildly dilated. PULMONIC VALVE: Not well visualized. TRICUSPID VALVE: The valve appears to be grossly normal. Doppler: There was no evidence for stenosis. Trace regurgitation. PERICARDIUM: There was no pericardial effusion. Patient weight: 219.5lb _Ejection fraction:_ 65-75% _Fractional shortening:_ 32% up to 5Kg 5-11.5Kg 11.6-22.9Kg 23-45Kg 45-57Kg Aortic Root 7-13 <17 13-22 17-27 17-27 LA diam 6-13 <23 24-38 33-47 37-40 RVID 10-17 7-15 7-15 7-18 8-17 LVIDd 12-22 <32 24-38 33-47 37-40 LVPW 2-4 3-6 5-7 6-8 7-8 IVS 2-4 3-6 5-7 6-8 7-8 BASIC MEASUREMENTS ADULT NORMAL Left ventricle LV internal dimension, ED, chordal *53.8 mm 43-52 level, PLAX LV internal dimension, ES, chordal *44.3 mm 23-38 level, PLAX Fractional shortening, chordal level, *18 % >29 PLAX LV posterior wall thickness, ED 9.23 mm IVS/LVPW ratio, ED 0.98 <1.3 Ventricular septum Septal thickness, ED 9.08 mm Aortic valve Leaflet separation 17 mm 15-26 BASIC MEASUREMENTS ADULT NORMAL Aortic valve Leaflet separation 17 mm 15-26 Aorta Root diameter, ED 32 mm 20-37 Left atrium Anterior-posterior dimension, ES *43 mm 19-40 Anterior-posterior dimension index, ES 2.04 cm/m^2 <2.2 LA/aortic root ratio 1.34 DOPPLER MEASUREMENTS ADULT NORMAL Main pulmonary artery Pressure, S 23 mm Hg =30 Aortic valve Peak velocity, S 133 cm/s Valve area, Vmax 2 cm^2 Valve area index, Vmax 0.95 cm^2/m^2 Mitral valve Maximal regurgitant velocity 398 cm/s Tricuspid valve Regurgitant peak velocity 181 cm/s Peak RV-RA gradient, S 13 mm Hg Maximal regurgitant velocity 181 cm/s Systemic veins Estimated CVP 10 mm Hg Right ventricle RV pressure, S 27 mm Hg <30 Pulmonic valve Peak velocity, S 100 cm/s LEGEND: Mean values are shown as u=mean value. Asterisk (*) singh values outside specified normal range. Prepared and signed by Fran Ellison [id number]
--- NOTE | 2016-07-21 17:18 | HHI.PR ---
Subjective Remarks No new complaints. Objective Vitals Vital Signs Date Time Temp Pulse Resp B/P Pulse Ox O2 Delivery O2 Flow Rate FiO2 07/21/16 17:00 84 07/21/16 16:00 71 07/21/16 15:00 98.0 85 20 139/92 95 07/21/16 15:00 69 07/21/16 14:00 78 07/21/16 13:00 67 07/21/16 12:00 98.9 64 20 154/94 95 07/21/16 12:00 64 07/21/16 11:00 63 07/21/16 10:00 118 07/21/16 09:33 96 21 07/21/16 09:00 120 07/21/16 08:00 118 07/21/16 08:00 97.8 120 20 163/105 90 07/21/16 08:00 90 Room Air 07/21/16 07:00 84 07/21/16 06:00 68 07/21/16 05:00 74 07/21/16 04:00 Room Air 07/21/16 04:00 98.2 76 18 143/85 94 07/21/16 04:00 76 07/21/16 03:00 71 07/21/16 02:00 70 07/21/16 01:00 64 07/21/16 00:00 Room Air 07/21/16 00:00 65 07/21/16 00:00 98.2 65 18 130/75 93 07/20/16 23:00 69 07/20/16 22:00 66 07/20/16 21:00 67 07/20/16 20:00 98.3 70 20 142/77 93 07/20/16 20:00 70 07/20/16 20:00 Room Air 07/20/16 18:00 60 07/20/16 07/20/16 07/21/16 15:00 23:00 07:00 Intake Total 720 ml 482 ml Output Total 975 ml 900 ml Balance -255 ml -418 ml Intake Oral 720 ml 480 ml IV Total 2 ml Output Urine Total 975 ml 900 ml # Bowel Movements 2 0 Result Diagram: 07/17/16 0427 07/21/16 0416 Imaging Last Impressions Chest X-Ray 07/20/16 0600 Signed Impressions: Service Date/Time: Wednesday, July 20, 2016 03:40 - CONCLUSION: Improving bibasilar pulmonary infiltrates and small left effusion. The right effusion has resolved. Augustus Young Jr., MD Myocardial Perfusion Scan Nuc Med 07/17/16 0000 Signed Impressions: Service Date/Time: June 10:19 - CONCLUSION: 1. Large, fixed perfusion defect involving nearly the entire lateral wall. Findings would be consistent with a large area of infarct. No reversible perfusion abnormality identified. 2. Global hypokinesis with severely diminished ejection fraction at 21%%. RISK CATEGORY: High (>3%% Annual Mortality Rate) Nestor Estrella MD Objective Remarks GENERAL: This is a well-nourished, well-developed patient, in no apparent distress. CARDIOVASCULAR: Regular rate and rhythm without murmurs, gallops, or rubs. RESPIRATORY: Clear to auscultation. Breath sounds equal bilaterally. No wheezes , rales, or rhonchi. GASTROINTESTINAL: Abdomen soft, non-tender, nondistended. Normal active bowel sounds MUSCULOSKELETAL: Extremities without clubbing, cyanosis, or edema. NEURO: Alert & Oriented x4 to person, place, time, situation. Moves all ext x4 A/P Problem List: (1) Tachy-cristela syndrome Status: Acute Plan: - comgmt with Dr. Saxena - Latoya (07/17/16) EF 21% - Echocardiogram (07/21/16) EF 40 - 45%% - pt started on metoprolol, amiodarone - Eliquis stopped - EPS study with ablation 07/22/16 (2) Acute systolic CHF (congestive heart failure) Status: Acute Plan: Pt presented with severe htn, systolic chf exacerbation. afib/rvr latoya shows infarcted lat wall but no reversible ischemia - see above - lasix and KCL stopped PT (3) Afib Status: Acute Plan: see above (4) DM (diabetes mellitus) Status: Chronic Plan: ssi for now (5) Renal cell carcinoma Status: Chronic Plan: s/p cryoablation (6) HTN (hypertension) Status: Chronic Plan: cont current meds. (7) Anxiety Status: Chronic (8) BPH (benign prostatic hyperplasia) Status: Chronic Plan: terazosin (9) CAD (coronary artery disease) Status: Chronic Plan: latoya today Problem Qualifiers (1) Afib: Qualified Code: I48.0 - Paroxysmal atrial fibrillation (2) DM (diabetes mellitus): Crispin Garces DO Jul 21, 2016 17:18
[2016-07-21] MEDS: TEMAZEPAM 15 MG CAP PO PRN (21:24)
[2016-07-22] VITALS (21 sets, daily range): BP systolic 105–173; BP diastolic 63–108; PULSE 51–119; RESP 18–20; TEMP 97.8–98.8; O2SAT 92–96
[2016-07-22] MEDS: CHLORHEXIDINE GLUCONATE 2 % 1 PACK (2 CLOTHS) TOP SCH (03:35)
[2016-07-22] MEDS: INSULIN NovoLIN REGULAR SUPPLEMENTAL SCALE SQ SCH ×4 (06:00→16:39)
--- NOTE | 2016-07-22 07:54 | PD.CARD.PN ---
Subjective Subjective Remarks Feels well. No dyspnea or chest pain Objective Vital Signs / I&O Vital Signs Date Time Temp Pulse Resp B/P Pulse Ox O2 Delivery O2 Flow Rate FiO2 07/22/16 06:00 86 07/22/16 05:00 68 07/22/16 04:00 97.8 77 18 141/97 93 07/22/16 04:00 119 07/22/16 03:00 90 07/22/16 02:00 100 07/22/16 01:00 62 07/22/16 00:00 69 07/22/16 00:00 98.1 57 18 105/63 93 07/21/16 23:00 100 07/21/16 22:00 88 07/21/16 21:00 84 07/21/16 20:00 63 07/21/16 20:00 Nasal Cannula 2.00 07/21/16 20:00 98.8 92 18 148/99 93 07/21/16 19:00 66 07/21/16 18:00 75 07/21/16 17:00 84 07/21/16 16:00 71 07/21/16 15:00 98.0 85 20 139/92 95 07/21/16 15:00 69 07/21/16 14:00 78 07/21/16 13:00 67 07/21/16 12:00 98.9 64 20 154/94 95 07/21/16 12:00 64 07/21/16 11:00 63 07/21/16 10:00 118 07/21/16 09:33 96 21 07/21/16 09:00 120 07/21/16 08:00 118 07/21/16 08:00 97.8 120 20 163/105 90 07/21/16 08:00 90 Room Air I/O 07/21/16 07/21/16 07/21/16 07/22/16 07/22/16 07/22/16 07:00 15:00 23:00 07:00 15:00 23:00 Intake Total 482 ml 1080 ml 240 ml Output Total 900 ml 800 ml 675 ml Balance -418 ml 280 ml -435 ml Intake Oral 480 ml 1080 ml 240 ml IV Total 2 ml Output Urine Total 900 ml 800 ml 675 ml # Bowel Movements 0 1 Physical Exam Lungs clear Irregular @ 120-130 no edema Assessment and Plan Problem List: (1) CAD (coronary artery disease) (2) Afib Assessment and Plan: Stable with resolution of CHF. Furosemide on hold secondary to increasing creatinine. For a fib ablation today. Note that EF on echo is 40-45%. Don't feel that patient will require LifeVest on discharge (3) HTN (hypertension) (4) Tachy-cristela syndrome Assessment and Plan Chf much improved. Still has mild vascular congestion by Cxr. Continue IV lasix one more day. Increase potassium supplementation A fib with RVR present. Will D/c cardvedilol and begin metoprolol for rhythm control. Add apixiban for thromboembolic protection Will get lexiscan today to R/O occult CAD Gilberto Beltran MD Jul 22, 2016 07:53
[2016-07-22] MEDS: METOPROLOL TARTRATE 100 MG TAB PO SCH ×2 (08:46→22:06)
[2016-07-22] MEDS: AMIODARONE 200 MG TAB PO SCH (08:46)
[2016-07-22] MEDS: PANTOPRAZOLE SODIUM 40 MG VIAL IV SCH (08:46)
[2016-07-22] MEDS: ALPRAZolam 0.25 MG TAB PO PRN (10:25)
--- NOTE | 2016-07-22 11:36 | HHI.PR ---
Subjective Remarks No new complaints. Objective Vitals Vital Signs Date Time Temp Pulse Resp B/P Pulse Ox O2 Delivery O2 Flow Rate FiO2 07/22/16 11:02 97.9 115 18 142/86 94 07/22/16 11:02 115 07/22/16 10:14 86 07/22/16 09:47 96 21 07/22/16 09:45 98.4 20 158/94 07/22/16 09:30 115 19 173/108 95 07/22/16 09:00 68 07/22/16 08:00 110 07/22/16 08:00 98.4 110 19 150/102 92 07/22/16 08:00 Nasal Cannula 2.00 07/22/16 06:00 86 07/22/16 05:00 68 07/22/16 04:00 97.8 77 18 141/97 93 07/22/16 04:00 119 07/22/16 03:00 90 07/22/16 02:00 100 07/22/16 01:00 62 07/22/16 00:00 69 07/22/16 00:00 98.1 57 18 105/63 93 07/21/16 23:00 100 07/21/16 22:00 88 07/21/16 21:00 84 07/21/16 20:00 63 07/21/16 20:00 Nasal Cannula 2.00 07/21/16 20:00 98.8 92 18 148/99 93 07/21/16 19:00 66 07/21/16 18:00 75 07/21/16 17:00 84 07/21/16 16:00 71 07/21/16 15:00 98.0 85 20 139/92 95 07/21/16 15:00 69 07/21/16 14:00 78 07/21/16 13:00 67 07/21/16 12:00 98.9 64 20 154/94 95 07/21/16 12:00 64 07/21/16 07/21/16 07/22/16 15:00 23:00 07:00 Intake Total 1080 ml 240 ml Output Total 800 ml 675 ml Balance 280 ml -435 ml Intake Oral 1080 ml 240 ml Output Urine Total 800 ml 675 ml # Bowel Movements 1 Result Diagram: 07/21/16 0416 Other Results Laboratory Tests Test 07/21/16 04:16 Sodium Level 138 MEQ/L Potassium Level 4.0 MEQ/L Chloride Level 102 MEQ/L Carbon Dioxide Level 27.4 MEQ/L Anion Gap 9 MEQ/L Blood Urea Nitrogen 21 MG/DL Creatinine 1.44 MG/DL Estimat Glomerular Filtration 48 ML/MIN Rate Random Glucose 120 MG/DL Calcium Level 8.5 MG/DL Imaging Last Impressions Chest X-Ray 07/20/16 0600 Signed Impressions: Service Date/Time: Wednesday, July 20, 2016 03:40 - CONCLUSION: Improving bibasilar pulmonary infiltrates and small left effusion. The right effusion has resolved. Augustus Young Jr., MD Myocardial Perfusion Scan Nuc Med 07/17/16 0000 Signed Impressions: Service Date/Time: June 10:19 - CONCLUSION: 1. Large, fixed perfusion defect involving nearly the entire lateral wall. Findings would be consistent with a large area of infarct. No reversible perfusion abnormality identified. 2. Global hypokinesis with severely diminished ejection fraction at 21%%. RISK CATEGORY: High (>3%% Annual Mortality Rate) Nestor Estrella MD A/P Problem List: (1) Acute systolic CHF (congestive heart failure) Status: Acute Plan: - Pt presented with severe HTN, systolic CHF exacerbation, Afib/rvr - Lexiscan (07/17) --> Large, fixed perfusion defect involving nearly the entire lateral wall. No reversible perfusion abnormality identified. Global hypokinesis with severely diminished ejection fraction at 21 % shows infarcted lat wall but no reversible ischemia - see above - Pt had been on Lasix IV BID and KCL which were stopped on 07/20 due to worsening renal function - Repeat labs in AM (2) Tachy-cristela syndrome Status: Acute Plan: - comgmt with Dr. Hemanth Klein (07/17/16) EF 21% - Echocardiogram (07/21/16) EF 40 - 45% - pt started on metoprolol, amiodarone - Eliquis is on hold - EPS study with ablation 07/22/16 (3) Afib Status: Acute Plan: - See above (4) DM (diabetes mellitus) Status: Chronic Plan: - NovoLog SSI - Accu checks (5) Renal cell carcinoma Status: Chronic Plan: - s/p cryoablation (6) HTN (hypertension) Status: Chronic Plan: - Pt is currently on Metoprolol 50mg Q12H - Hydralazine PRN (7) Anxiety Status: Chronic (8) BPH (benign prostatic hyperplasia) Status: Chronic (9) CAD (coronary artery disease) Status: Chronic Plan: - See above Assessment and Plan Patient examined. Assessment and plan formulated with Kailey Thurman PA-C. I agree with the above. Problem Qualifiers (1) Afib: Qualified Code: I48.0 - Paroxysmal atrial fibrillation (2) DM (diabetes mellitus): Kailey Thurman Jul 22, 2016 11:36 Crispin Garces DO Jul 23, 2016 13:26
[2016-07-22] MEDS ORDERED: PROPOFOL 200 MG/20 ML AMP IV ONE (17:07)
[2016-07-22] MEDS ORDERED: HEPARIN-NS/PF INJ 500 ML ONE (17:16)
[2016-07-22] MEDS ORDERED: LEVOFLOXACIN 500 MG PREMIX INJ 100 ML IV ONE (17:16)
[2016-07-22] MEDS ORDERED: HEPARIN SODIUM - IV 10,000 UNITS/10 ML VIAL ONE ×2 (17:30→18:23)
[2016-07-22] MEDS ORDERED: ISOPROTERENOL HCL 1 MG/5 ML AMP ONE (17:30)
[2016-07-22] MEDS ORDERED: HEPARIN-D5W INJ 250 ML ONE (18:23)
[2016-07-22] MEDS ORDERED: SUGAMMADEX SODIUM 200 MG/2 ML VIAL IV PUSH ONE ×2 (18:44)
[2016-07-22] MEDS ORDERED: PROTAMINE SULFATE 50 MG/5 ML VIAL ONE ×2 (19:37→19:56)
[2016-07-22] MEDS ORDERED: METOPROLOL TARTRATE 5 MG/5 ML VIAL ONE (19:40)
[2016-07-22] MEDS ORDERED: METOCLOPRAMIDE HCL 10 MG/2 ML VIAL IV PRN (19:45)
[2016-07-22] MEDS ORDERED: LIDOCAINE HCL 1% 50 ML VIAL INFIL PRN (19:45)
[2016-07-22] MEDS ORDERED: SODIUM CHLOR 0.9% 250 ML INJ 250 ML IV PRN (19:45)
[2016-07-22] MEDS ORDERED: ATROPINE SULFATE 1 MG/ML VIAL IV PRN (19:45)
[2016-07-22] MEDS ORDERED: BACITRACIN OINT 0.9 GM PKT TOP ONE (19:45)
[2016-07-22] MEDS ORDERED: LORazepam 2 MG/ML VIAL IV PRN (19:45)
[2016-07-22] MEDS ORDERED: ONDANSETRON HCL 4 MG/2 ML VIAL IV PRN (19:45)
[2016-07-22] MEDS ORDERED: oxyCODONE/ACETAMINOPHEN 5 MG/325 MG TAB PO PRN ×2 (19:45)
[2016-07-22] MEDS ORDERED: DO NOT ADM ANY ANTICOAGULANT DRUGS XX PRN (21:15)
--- NOTE | 2016-07-22 22:45 | EKG ---
Date Performed: 07/22/2016 Time Performed: 20:59:37 PTAGE: 75 years EKG: Sinus rhythm WITH OCCASIONAL SUPRAVENTRICULAR PREMATURE COMPLEXES ST DEVIATION AND MODERATE T-WAVE ABNORMALITY AB NORMAL ECG PREVIOUS TRACING : 07/15/2016 08.12 Compared to the previous tracing ST-T changes more prominen t DOCTOR: Loyda Xie Interpretating Date/Time 07/22/2016 22:44:50
[2016-07-23] VITALS (12 sets, daily range): BP systolic 140–146; BP diastolic 74–82; PULSE 60–70; RESP 18; TEMP 97.4–98.8; O2SAT 91–98
[2016-07-23] MEDS: ALPRAZolam 0.25 MG TAB PO PRN (00:41)
[2016-07-23] MEDS: APIXABAN 5 MG TABLET PO SCH ×2 (00:41→08:33)
[2016-07-23] MEDS: CHLORHEXIDINE GLUCONATE 2 % 1 PACK (2 CLOTHS) TOP SCH (03:08)
[2016-07-23] MEDS: INSULIN NovoLIN REGULAR SUPPLEMENTAL SCALE SQ SCH ×3 (06:00→12:34)
[2016-07-23 06:53] LABS: APTT (PATIENT) 27.8 SEC (24.3-30.1); INTERNATIONAL NORMALIZED RATIO 1.1 RATIO; PROTHROMBIN TIME - PATIENT 11.8 SEC (9.8-11.6)
--- NOTE | 2016-07-23 07:43 | PD.CARD.PN ---
Subjective Subjective Remarks Feels ok. Objective Medications Current Medications Medications (Trade) Dose Ordered Sig/Fiordaliza Route Start Time Stop Time Status Last Admin (NS Flush) 2 ml UNSCH PRN IVF 07/15/16 08:30 07/19/16 09:12 (Protonix Inj) 40 mg DAILY IV 07/15/16 12:00 07/22/16 08:46 Miscellaneous Information 1 Q361D XX 07/15/16 11:15 (Chlorhexidine 2% Cloth) Taper DAILY@04 TOP 07/16/16 04:00 07/12/17 03:59 07/17/16 23:57 (Chlorhexidine 2% Cloth) 3 pack UNSCH PRN TOP 07/15/16 11:15 07/16/16 19:54 (D50w (Vial) Inj) 25 ml UNSCH PRN IV PUSH 07/15/16 11:15 (Glucagon Inj) 1 mg UNSCH PRN OTHER 07/15/16 11:15 (NovoLIN R SUPPLEMENTAL SCALE) 1 Q6H SQ 07/15/16 12:00 07/23/16 06:00 (Apresoline Inj) 10 mg Q6H PRN IV PUSH 07/15/16 11:15 07/19/16 03:10 (Xanax) 0.25 mg BID PRN PO 07/16/16 08:15 07/23/16 00:41 (Tears Naturale Opth Soln) 1 drop Q4H PRN EACH EYE 07/16/16 20:00 07/19/16 09:11 (Tylenol) 650 mg Q4H PRN PO 07/16/16 20:00 07/16/16 20:23 (Cardizem) 30 mg QID PO 07/18/16 09:00 Hold 07/20/16 12:01 (Restoril) 30 mg HS PRN PO 07/18/16 21:00 07/21/16 21:24 (Lopressor) 50 mg Q12HR PO 07/21/16 09:00 07/22/16 22:06 (Cordarone) 200 mg DAILY PO 07/21/16 09:00 07/22/16 08:46 (Percocet 5-325 Mg) 1 tab Q4H PRN PO 07/22/16 19:45 (Percocet 5-325 Mg) 2 tab Q4H PRN PO 07/22/16 19:45 07/22/16 22:06 (Ativan Inj) 0.5 mg UNSCH PRN IV 07/22/16 19:45 07/23/16 19:44 07/22/16 20:18 Atropine Sulfate 0.5 mg 0.5 mg UNSCH PRN IV 07/22/16 19:45 (NS 250 ml Inj) 250 ml @ 500 mls/hr ONCE PRN IV 07/22/16 19:45 07/23/16 19:44 (Reglan Inj) 10 mg Q4H PRN IV 07/22/16 19:45 (Zofran Inj) 4 mg Q4H PRN IV 07/22/16 19:45 (Xylocaine 1% Inj (50 ml)) 10 ml UNSCH PRN INFIL 07/22/16 19:45 07/23/16 19:44 (Eliquis) 5 mg BID PO 07/22/16 23:00 07/23/16 00:41 Miscellaneous Information ALL NURSING DEPARTME... UNSCH PRN XX 07/22/16 21:15 07/23/16 21:14 Vital Signs / I&O Vital Signs Date Time Temp Pulse Resp B/P Pulse Ox O2 Delivery O2 Flow Rate FiO2 07/23/16 04:00 98.0 65 18 142/76 95 07/23/16 00:00 98.1 18 146/79 94 07/23/16 00:00 70 07/22/16 23:06 18 07/22/16 21:30 98.0 62 18 120/70 07/22/16 21:30 94 Nasal Cannula 3.00 07/22/16 21:28 63 07/22/16 21:00 98.0 61 12 118/60 95 Nasal Cannula 3 07/22/16 20:45 66 14 127/70 94 Nasal Cannula 3 07/22/16 20:30 62 16 106/53 93 Nasal Cannula 3 07/22/16 20:15 62 15 104/52 95 Nasal Cannula 3 07/22/16 20:08 97.4 65 14 116/74 95 Nasal Cannula 4 07/22/16 17:38 94 21 07/22/16 16:00 Nasal Cannula 2.00 07/22/16 16:00 98.8 65 20 153/84 94 07/22/16 12:19 51 07/22/16 11:49 112 07/22/16 11:02 97.9 115 18 142/86 94 07/22/16 11:02 115 07/22/16 10:14 86 07/22/16 09:47 96 21 07/22/16 09:45 98.4 20 158/94 07/22/16 09:30 115 19 173/108 95 07/22/16 09:00 68 07/22/16 08:00 110 07/22/16 08:00 98.4 110 19 150/102 92 07/22/16 08:00 Nasal Cannula 2.00 I/O 07/22/16 07/22/16 07/22/16 07/23/16 07/23/16 07/23/16 07:00 15:00 23:00 07:00 15:00 23:00 Intake Total 240 ml 500 ml Output Total 675 ml 250 ml Balance -435 ml 250 ml Intake Oral 240 ml Other 500 ml Output Urine Total 675 ml 150 ml Estimated Blood Loss 100 ml Physical Exam GENERAL: Well-nourished, well-developed patient. SKIN: Warm and dry. Groin sites soft with no bruising. HEAD: Normocephalic. EYES: No scleral icterus. No injection or drainage. NECK: Supple, trachea midline. No JVD or lymphadenopathy. CARDIOVASCULAR: Regular rate and rhythm without murmurs, gallops, or rubs. RESPIRATORY: Breath sounds equal bilaterally. No accessory muscle use. GASTROINTESTINAL: Abdomen soft, non-tender, nondistended. EXTREMITIES: No cyanosis, or edema. NEUROLOGICAL: Awake, alert, and oriented x 3. Non-focal. Laboratory Laboratory Tests Test 07/23/16 05:41 Prothrombin Time 11.8 SEC Prothromb Time International 1.1 RATIO Ratio Activated Partial 27.8 SEC Thromboplast Time Assessment and Plan Problem List: (1) Afib Assessment and Plan: Stable, NSR s/p ablation. Continue anticoagulant. F/U with Dr. Saxena in 3 weeks. (2) S/P ablation of atrial fibrillation Assessment and Plan: Can be discharged from EP standpoint when cleared by managing team, with continued elquis. F/U with Dr. Saxena in 3 weeks. Assessment and Plan D/W pt., RN, Dr. Saxena. Problem Qualifiers (1) Afib: Qualified Code: I48.0 - Paroxysmal atrial fibrillation Lorna Whitlock Jul 23, 2016 07:43
[2016-07-23] MEDS: METOPROLOL TARTRATE 100 MG TAB PO SCH (08:32)
[2016-07-23] MEDS: AMIODARONE 200 MG TAB PO SCH (08:32)
[2016-07-23] MEDS: PANTOPRAZOLE SODIUM 40 MG VIAL IV SCH (08:34)
[2016-07-23] MEDS: SODIUM CHLORIDE 0.9% FLUSH 5 ML FLUSH IVF PRN (08:34)
[2016-07-23] MEDS ORDERED: OXYC1TAB63 PO (13:19)
[2016-07-23] MEDS ORDERED: METO-338 PO (13:19)
[2016-07-23] MEDS ORDERED: APIX5TAB PO (13:19)
[2016-07-23] MEDS ORDERED: Artificial Tears Opth Soln EACH EYE (13:19)
[2016-07-23] MEDS ORDERED: AMIO200T PO (13:19)
--- NOTE | 2016-07-23 13:30 | HHI.FF ---
Face to Face Verification Diagnosis: (1) S/P ablation of atrial fibrillation (2) CAD (coronary artery disease) (3) Tachy-cristela syndrome (4) Acute systolic CHF (congestive heart failure) (5) Afib (6) DM (diabetes mellitus) (7) HTN (hypertension) Physical Therapy Order: Evaluate and Treat, Improve ambulation, Strength and gait training Home Health Nursing Order: Medical education Signs/symptoms of disease process Diabetic education CHF education Medication education-adverse effect Wound care and dressing changes Nursing assessment with vital signs I have seen patient Dustin Ellison on 07/23/16. My clinical findings support the need for the requested home health care services because: Ltd mobility - disease progression Patient has SOB Deconditioned w/ increased weakness Med compliance is questionable Limited ability to care for self Need for psychosocial assistance I certify that my clinical findings support that this patient is homebound because: Impaired cognitive ability/safety Unsafe to leave home unassisted Need for psychosocial assistance Unable to use public transportation Crispin Garces DO Jul 23, 2016 13:30
[2016-07-23] MEDS ORDERED: GLIP10TA6 PO (13:35)
[2016-07-23] MEDS ORDERED: METF500T PO (13:35)
--- NOTE | 2016-07-23 13:37 | HHI.DCPOC ---
Discharge Care Plan Diagnosis: (1) S/P ablation of atrial fibrillation (2) Tachy-cristela syndrome (3) Acute systolic CHF (congestive heart failure) (4) Afib (5) DM (diabetes mellitus) (6) HTN (hypertension) (7) Anxiety Goals to Promote Your Health * To prevent worsening of your condition and complications * To maintain your health at the optimal level Directions to Meet Your Goals Take your medications as prescribed Follow your dietary instruction Follow activity as directed Keep your appointments as scheduled Take your immunizations and boosters as scheduled If your symptoms worsen call your PCP, if no PCP go to Urgent Care Center or Emergency Room Smoking is Dangerous to Your Health. Avoid second hand smoke Call the 24-hour hour crisis hotline for domestic abuse at Crispin Garces DO Jul 23, 2016 13:37
--- NOTE | 2016-07-23 13:39 | HHI.DS ---
Discharge Summary Admission Date Jul 15, 2016 at 10:20 Discharge Date: Jul 23, 2016 Admitting Diagnosis acute resp failure from CHF (1) Acute systolic CHF (congestive heart failure) Diagnosis: Principal (2) Tachy-rcistela syndrome Diagnosis: Principal (3) Afib Diagnosis: Principal (4) DM (diabetes mellitus) Diagnosis: Secondary (5) HTN (hypertension) Diagnosis: Secondary (6) Anxiety Diagnosis: Secondary (7) BPH (benign prostatic hyperplasia) Diagnosis: Secondary (8) CAD (coronary artery disease) Diagnosis: Secondary Consultants Dr. Gilberto Beltran, Cardiology Dr. 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 The patient presented to [facility] ED with a 2-day history of progressive worsening shortness of breath associated with edema of lower extremity and nausea. He denies any associated symptoms of chest pain, cough, fever, chills or any constitutional symptoms. He was scheduled to undergo stress test for review. He was scheduled to undergo stress test today as a preop cardiac clearance for his hernia surgery. However, due to shortness of breath. He was sent to the ER for further evaluation and management of his symptoms. The patient is known to Dr. Lance his outpatient podiatrist orthopedic. On arrival to the ED the patient was hypertensive with blood pressure of 214/128. Initially he was on 4 liters nasal cannula and was placed on BiPap 10/5 with 50% FIO2. Chest x-ray In the ER showed bibasilar patchiness, small right pleural effusion. Mild cardiomegaly and pulmonary infiltrates. In the ER he was given Lasix 80 mg IV push with good response in his urine output, in addition the patient was given hydralazine 10 mg, nitroglycerin 2 inches topical and Ativan 2 mg IV. When seen the patient remained on BiPap with a blood pressure of 238/164. He denies any emesis or abdominal pain. CBC/BMP: 07/21/16 0416 Significant Findings Laboratory Tests Test 07/21/16 07/23/16 04:16 05:41 Blood Urea Nitrogen 21 MG/DL (7-18) Creatinine 1.44 MG/DL (0.60-1.30) Estimat Glomerular Filtration 48 ML/MIN (>89) Rate Random Glucose 120 MG/DL (74-106) Prothrombin Time 11.8 SEC (9.8-11.6) Imaging Last Impressions Chest X-Ray 07/20/16 0600 Signed Impressions: Service Date/Time: Wednesday, July 20, 2016 03:40 - CONCLUSION: Improving bibasilar pulmonary infiltrates and small left effusion. The right effusion has resolved. Augustus Young Jr., MD Myocardial Perfusion Scan Nuc Med 07/17/16 0000 Signed Impressions: Service Date/Time: June 10:19 - CONCLUSION: 1. Large, fixed perfusion defect involving nearly the entire lateral wall. Findings would be consistent with a large area of infarct. No reversible perfusion abnormality identified. 2. Global hypokinesis with severely diminished ejection fraction at 21%%. RISK CATEGORY: High (>3%% Annual Mortality Rate) Nestor Estrella MD Hospital Course (1) Acute systolic CHF (congestive heart failure) Status: Acute Plan: - Pt presented with severe HTN, systolic CHF exacerbation, Afib/rvr - Lexiscan (07/17) --> Large, fixed perfusion defect involving nearly the entire lateral wall. No reversible perfusion abnormality identified. Global hypokinesis with severely diminished ejection fraction at 21 % shows infarcted lat wall but no reversible ischemia - Echocardiogram (07/21/16) EF 40 - 45% - Pt had been on Lasix IV BID and KCL which were stopped on 07/20 due to worsening renal function - upon discharge, will resume outpt lasix dose of 40mg daily - repeat BMP outpt on 07/28/16 and fax to PCP (2) Tachy-cristela syndrome Status: Acute Plan: - comgmt with Dr. Saxena - Latoya (07/17/16) EF 21% - Echocardiogram (07/21/16) EF 40 - 45% - metoprolol, amiodarone - Eliquis - EPS study with ablation 07/22/16 - f/u with Dr. Saxena in 1 week (3) Afib Status: Acute Plan: - See above (4) DM (diabetes mellitus) Status: Chronic Plan: - NovoLog SSI during hospitalization - upon discharge, I am resuming pt's glizide and metformin (5) Renal cell carcinoma Status: Chronic Plan: - s/p cryoablation (6) HTN (hypertension) Status: Chronic Plan: - Metoprolol 50mg Q12H (7) Anxiety Status: Chronic (8) BPH (benign prostatic hyperplasia) Status: Chronic (9) CAD (coronary artery disease) Status: Chronic Pt Condition on Discharge: Stable Discharge Disposition: Disch w/ Home Health Serv Discharge Instructions DIET: Follow Instructions for: Heart Healthy Diet Activities you can perform: Regular-No Restrictions Follow up Referrals: Cardiology - 1 Week with Luana Saxena MD PCP Follow-up - [address] Alirio Johnson New Medications: Glipizide (Glipizide) 10 Mg Tab 10 MG PO BIDAC Take 30 minutes before a meal Blood Sugar Management #60 Ref 0 TAB Metformin (Metformin) 500 Mg Tab 500 MG PO BIDPC With meals Blood Sugar Management #60 Ref 0 TAB Amiodarone (Amiodarone) 200 Mg Tab 200 MG PO DAILY SSS #30 Ref 0 TAB Apixaban (Eliquis) 5 Mg Tab 5 MG PO BID arrythmia #60 Ref 0 TAB Metoprolol Tartrate (Lopressor) 100 Mg Tab 50 MG PO Q12HR arrythmia #60 Ref 0 TAB Oxycodone-Acetaminophen (Oxycodone-Acetaminophen) 5-325 mg Tab 1 TAB PO Q4H PRN pain #7 TAB ([Artificial Tears Opth Soln]) 300 DROP/15 ML SOLN 1 DROP EACH EYE Q4H PRN DRY EYE Ref 0 BOTTLE Continued Medications: Allopurinol (Allopurinol) 100 Mg Tab 200 MG PO BID Gout Ref 0 TAB Alprazolam (Alprazolam) 0.25 Mg Tab 0.25 MG PO BID ANXIETY Ref 0 TAB Furosemide (Lasix) 40 Mg Tab 40 MG PO DAILY #30 Ref 0 TAB Terazosin (Terazosin) 5 Mg Cap 5 MG PO HS #30 Ref 0 CAP Discontinued Medications: Acetaminophen-Codeine (Tylenol-Codeine #3) 300-30 mg Tab 1 TAB PO TID PRN PAIN Ref 0 TAB Carvedilol (Carvedilol) 12.5 Mg Tab 12.5 MG PO BID #60 Ref 0 TAB Glucosamine-Chondroitin (Glucosamine-Chondroitin) 500-400 Mg Cap 1 CAP PO DAILY Herbal Supplements Ref 0 CAP Losartan (Losartan) 50 Mg Tab 50 MG PO BID Blood Pressure Management #30 Ref 0 TAB Crispin Garces DO Jul 23, 2016 13:39
--- NOTE | 2016-07-23 20:11 | EKG ---
Date Performed: 07/23/2016 Time Performed: 05:46:04 PTAGE: 75 years EKG: Sinus rhythm with PAC(s) with borderline 1st degree A-V block Extensive ST-T changes Abnormal ECG PREVIOUS TRACING : 07/22/2016 20.59 Compared to prior tracing no significant change DOCTOR: Loyda Xie Interpretating Date/Time 07/23/2016 20:10:54
--- NOTE | 2016-08-04 09:21 | PQ ---
Physician Query Response Document PATIENT: ADRIAN VU : 1940 ADMIT DATE: 07/15/2016 10:20 AM DISCH DATE: 07/23/2016 2:49 PM RESPONDING PROVIDER #: Eschwart QUERY TEXT: Clarification of Clinical Diagnostic Findings Please clarify documentation or clinical relevance for the clinical / diagnostic findings or whether those are insignificant or unable to be further specified. RESPIRATORY INSUFFICIENCY: ACUTE, CHRONIC OR BOTH ACUTE RESPIRATORY FAILURE RULED OUT OR PRESENT ON ADMISSION OTHER MORE APPROPRIATE DIAGNOSIS Your prompt response is appreciated, please do not hesitate to contact the CDI/Coding Hotline with an y questions, comments and/or concerns you may have at ext. [phone] The patient's Clinical Indicators include: ACUTE RESPIRATORY FAILURE-ED RECORD, ADMITTING DIAGNOSIS RESPIRATORY INSUFFICIENCY-H INITIALLY WAS ON 4 LITERS NASAL CANULA THEN PLACED ON BIPAP 02/01 WITH 50% FIO2. ADMITTED TO ICU-H PT ON OXYGEN 6 LITERS 07/15-07/17 BLOOD GASES: HCO3-26, pCO2-36, pO2-82 ON BIPAP. PULSE OX: 07/15-, 07/16-, Query created by: Marlys Amor on 07/24/2016 11:25 AM RESPONSE TEXT: Pt was admitted with acute on chronic CHF and corresponding acute respiratory failure due to his CHF. Electronically signed by: Crispin Garces DO 08/04/2016 9:18 AM
--- NOTE | 2016-08-04 11:01 | PD.CARD ---
Atrial Fibrillation Ablation PROCEDURE DATE: Jul 22, 2016 PROCEDURES PERFORMED: 1. Electrophysiology study on Isuprel infusion 2. CS cannulation 3. 3-D mapping 4. Transseptal approach 5. Right and left heart catheterization 6. Intracardiac echo 7. Radiofrequency ablation of atrial fibrillation 8. Pulmonary vein isolation 9. Posterior wall ablation 10. Mitral valve isolation 11. Mitral line creation 12. Left atrial tachycardia ablation 13. Roof line creation 14. Floor line creation 15. Anterior and posterior ablation INDICATIONS FOR THE PROCEDURE Mr. Ellison is a 75-year-old male with atrial fibrillation, very difficult to control with multiple medications, very symptomatic, tachycardia induced cardiomyopathy, on anticoagulation who undergo electrophysiology study and ablation. The risks, the nature and the benefits of the procedure were clearly stated to him. The risks include pneumothorax, cardiac perforation, stroke, need for open heart surgery and even . The patient understood and agreed to proceed. DESCRIPTION OF THE PROCEDURE IN DETAIL After written informed consent was obtained prior to esophageal echocardiogram, the patient was kept on the table where he was prepped and draped in the usual sterile fashion. Conscious sedation was initiated and maintained throughout the procedure by the anesthesiologist. Once sedation was verified, the right and left inguinal areas were anesthetized with 2% Xylocaine. Using modified Seldinger technique, the left femoral vein was cannulated on three occasions, three guidewires were advanced. Over the wire a 6, 7 and a 10-Nepalese Hemaquet were advanced. Then the left femoral artery was cannulated on one occasion, one guidewire was advanced. Over the wire a 4-Nepalese Hemaquet was advanced. Then the right femoral vein was cannulated on one occasion, one guidewire was advanced. Over the wire a 8-Nepalese Hemaquet was advanced. Then under fluoroscopic guidance through the 6 and 7-Nepalese Hemaquet, two 5-Nepalese Amando curved quadripolar electrophysiology catheters were advanced and placed around the His as well as coronary sinus. Basic interval was measured. The patient was in atrial fibrillation. Through the 10-Nepalese Hemaquet, a Cordis Mccabe AcuNav intracardiac echo catheter was advanced and placed at the right atrium. Multiple view was obtained. There is pericardial effusion, pulmonary vein was seen, atrial septal was visualized. Then the 8-Nepalese Hemaquet in the right femoral vein was exchanged for Agilis transseptal sheath that was placed all the way to the superior vena cava. Through the sheath a Delmer needle was advanced, then the sheath, the dilator and the needle were progressed until foci engaged. Once engaged, the needle was advanced. RF was delivered for 2 seconds. I was able to cross into the left atrium. Once the needle crossed, the dilator was advanced. Once the dilator crossed, the sheath was advanced. Once the sheath crossed, the dilator and the needle were removed. At this point I did flood the system and fluid movement was seen in the left atrium the indicates the sheath is in good position. The patient already received 10,000 units of heparin. The goal is to keep an ACT around 350 during ablation. Then through the sheath a [place] 20 pulse circumferential catheter was advanced. Using [employer] endocardial solution mapping system, a two-dimensional configuration of the left atrium was obtained. Points were taken at the left superior and inferior veins, right superior and inferior veins, mitral valve, and appendages. Then through the sheath a [place]. [place] TactiCath 65cm 3.5mm irrigated tipped mapping and radiofrequency ablation catheter was advanced. Esophageal probe was placed temperature monitoring during ablation. When it increased to 0.5 degrees Celsius above baseline, I moved to a different area of the atrium. First I did isolate the left superior and inferior vein. I did make a big hughes around the veins. Posterior was ablated. Then a posterior and anterior roof line was created, a floor line was created, a mitral line was isolated, then the mitral valve was isolated. At that point the patient was in left atrial tachycardia. I did remap the left atrium. I did create a line from the floor to the roof area, passing by the left atrial appendage. Then the right superior and inferior veins were isolated. During lateral wall ablation, patient converted into sinus rhythm. The circumferential catheter was advanced into the veins. There was no signal into the vein, pacing from the vein showed no conduction to the atrium. Isuprel infusion was initiated at 10 mcg for 15 minutes. No tachyarrhythmia was induced, post Isuprel no tachyarrhythmia was induced. At that point the procedure was complete. All catheters were removed, atrial septal sheath was exchanged for 9- Nepalese Hemaquet, intracardiac echo showed no pericardial effusion. There is still good flow in the pulmonary vein. The patient is going to be transferred to the recovery room. No incident report. The patient tolerated the procedure. Blood loss was minimal. FINDINGS 1. Electrocardiogram: At baseline the patient was in atrial fibrillation, post procedure the patient was in sinus rhythm. 2. Basic interval: Base cycle length was around 420. Post ablation she was around 960 milliseconds. AH at 100 and HV at 42 milliseconds. 3. Tachyarrhythmia: Atrial fibrillation was mapped and ablated. Atrial tachycardia was ablated. The ablation was successful. CONCLUSION Successful electrophysiology study, mapping, radiofrequency ablation of atrial fibrillation, left atrial tachycardia, pulmonary vein isolation, posterior ablation, mitral valve isolation, mitral line creation, roof line creation, floor line creation, left atrial tachycardia. COMMENTS AND RECOMMENDATIONS The patient is going to be transferred to the telemetry unit. Will be observed and when stable can be discharged home. Luana Saxena MD Aug 04, 2016 11:01
--- NOTE | 2016-08-30 15:25 | ETE ---
Study Study Date:07/22/2016 STUDY CONCLUSIONS SUMMARY - Left ventricle: The cavity size was normal. Wall thickness was normal. Systolic function was moderately reduced. The estimated ejection fraction was in the range of 35% to 40%. Wall motion was normal; there were no regional wall motion abnormalities. - Aortic valve: No evidence of vegetation. - Mitral valve: No evidence of vegetation. - Left atrium: The atrium was dilated. No evidence of thrombus in the atrial cavity or appendage. No evidence of thrombus in the atrial cavity or appendage. - Right atrium: No evidence of thrombus in the atrial cavity or appendage. - Atrial septum: No defect or patent foramen ovale was identified. Echo contrast study showed no ooyqe-qj-ebet atrial level shunt, at baseline or with provocation. - Tricuspid valve: No evidence of vegetation. - Pulmonic valve: No evidence of vegetation. If LV function is below 40, please consider prescribing an ACEI or ARB or document rationale for non-use. PROCEDURE DATA Consent: The risks, benefits, and alternatives to the procedure were explained to the patient and informed consent was obtained. Procedure: Initial setup. The patient was brought to the laboratory in the fasting state. Intravenous access was obtained. Surface ECG leads and pulse oximetric signals were monitored. Sedation. Conscious sedation was administered by anesthesiology. Transesophageal echocardiography. Topical anesthesia was obtained using viscous lidocaine. A transesophageal probe was inserted by the attending shrimp peeling machine tender. Image quality was good. Study completion: All IVs inserted during the procedure were removed. The patient tolerated the procedure well. There were no complications. Transesophageal echocardiography. 2D, complete spectral Doppler, and color Doppler. CARDIAC ANATOMY LEFT VENTRICLE: The cavity size was normal. Wall thickness was normal. Systolic function was moderately reduced. The estimated ejection fraction was in the range of 35% to 40%. Wall motion was normal; there were no regional wall motion abnormalities. AORTIC VALVE: Trileaflet; mildly thickened, mildly calcified leaflets. Cusp separation was normal. No evidence of vegetation. Doppler: No significant regurgitation. Aorta: - There was no atheroma. There was no evidence for dissection. Aortic root: The aortic root was not dilated. Ascending aorta: The ascending aorta was normal in size. Aortic arch: The aortic arch was normal in size. Descending aorta: The descending aorta was normal in size. MITRAL VALVE: Structurally normal valve. Leaflet separation was normal. No evidence of vegetation. Doppler: Trace regurgitation. LEFT ATRIUM: The atrium was dilated. No evidence of thrombus in the atrial cavity or appendage. No evidence of thrombus in the atrial cavity or appendage. The appendage was morphologically a left appendage, multilobulated, and of normal size. Emptying velocity was normal. ATRIAL SEPTUM: No defect or patent foramen ovale was identified. Echo contrast study showed no rxuuy-bj-bxpt atrial level shunt, at baseline or with provocation. RIGHT VENTRICLE: The cavity size was normal. Wall thickness was normal. Systolic function was normal. PULMONIC VALVE: Structurally normal valve. No evidence of vegetation. TRICUSPID VALVE: Structurally normal valve. Leaflet separation was normal. No evidence of vegetation. Doppler: Trace regurgitation. PULMONARY ARTERY: The main pulmonary artery was normal-sized. RIGHT ATRIUM: The atrium was normal in size. No evidence of thrombus in the atrial cavity or appendage. The appendage was morphologically a right appendage. PERICARDIUM: There was no pericardial effusion. Prepared and signed by Luana Saxena [id number]
== END 2016-07-23 14:49 | disposition home health service (06) | DRG 273 ==
LOC: NEPC 08:06 → NEDA 10:20 → HIME 13:30 → HCIS 07-19 19:00
PROVIDERS: ADMIT Hospitalist; ATTEND Hospitalist
PROC: 5A09357 Assistance with Respiratory Ventilation, Less than 24 Consecutive Hours, Continuous Positive Airway Pressure (ICD-10-PCS; 2016-07-15)
PROC: 02583ZZ Destruction of Conduction Mechanism, Percutaneous Approach (ICD-10-PCS; principal; 2016-07-22 18:00)
DX: I50.43 Acute on chronic combined systolic (congestive) and diastolic (congestive) heart failure (principal); J96.00 Acute respiratory failure, unspecified whether with hypoxia or hypercapnia; N17.9 Acute kidney failure, unspecified; I16.1 Hypertensive emergency; D64.9 Anemia, unspecified; C64.2 Malignant neoplasm of left kidney, except renal pelvis; I42.9 Cardiomyopathy, unspecified; I11.0 Hypertensive heart disease with heart failure; I49.5 Sick sinus syndrome; I48.0 Paroxysmal atrial fibrillation; E11.9 Type 2 diabetes mellitus without complications; I48.91 Unspecified atrial fibrillation; M1A.9XX0 Chronic gout, unspecified, without tophus (tophi); I25.10 Atherosclerotic heart disease of native coronary artery without angina pectoris; N40.0 Benign prostatic hyperplasia without lower urinary tract symptoms; K43.9 Ventral hernia without obstruction or gangrene; M16.11 Unilateral primary osteoarthritis, right hip; M17.11 Unilateral primary osteoarthritis, right knee; R19.7 Diarrhea, unspecified; F41.9 Anxiety disorder, unspecified; I25.2 Old myocardial infarction; Z85.038 Personal history of other malignant neoplasm of large intestine; Z85.46 Personal history of malignant neoplasm of prostate; Z85.820 Personal history of malignant melanoma of skin; Z90.49 Acquired absence of other specified parts of digestive tract; Z91.041 Radiographic dye allergy status; Z91.013 Allergy to seafood; Z92.3 Personal history of irradiation
CPT/HCPCS: 36600; 51702; 71010; 78452; 80048; 82550; 82552; 82805; 82948; 83735; 84100; 84484; 85002; 85025; 85610; 85730; 87015; 87116; 87206; 87493; 87641; 93005; 93017; 93306; 93312; 93320; 93325; 93613; 93623; 93656; 93662; 94002; 94640; 94664; 96374; 96375; A9502; C1730; C1731; C1732; C1759; C1766; C2630; C9113; J0360; J1644; J1650; J1940; J1956; J2060; J2720; J2785; J3010

== ENCOUNTER 2016-08-17 17:13 | Inpatient (IN) | payer MEDICARE, MEDICAID ==
[2016-08-17] VITALS (12 sets, daily range): BP systolic 100–167; BP diastolic 52–81; PULSE 45–82; RESP 14–18; TEMP 97–98; O2SAT 92–98
[~2016-08-17] VITALS: Ht 172.7 cm; Wt 97.9 kg
[~2016-08-17 17:13] MED LIST changes: +ALPR0.25 PO; -ALPR0.5T3 PO; +AMIO200T PO; +APIX5TAB PO; +Artificial Tears Opth Soln EACH EYE; -CARV12.52 PO; +GLIP10TA6 PO; -GLUC1CAP14 PO; -LOSA50TA PO; +METF500T PO; +METO-338 PO; +OXYC1TAB63 PO
[2016-08-17] MEDS ORDERED: TEMA15CA PO (17:40)
[2016-08-17] MEDS ORDERED: PANT40TA3 PO (17:40)
--- NOTE | 2016-08-17 17:55 | RADRPT ---
EXAM DATE/TIME: 08/17/2016 17:45 [facility] COMPARISON: CHEST SINGLE AP, July 20, 2016, 3:40. INDICATIONS : Chest pain. MEDICAL HISTORY : None. SURGICAL HISTORY : None. ENCOUNTER: Initial ACUITY: 1 day PAIN SCORE: 0/10 LOCATION: Bilateral chest FINDINGS: There are patchy infiltrates in the perihilar region and the right infrahilar region. There is a les ser degree of an inspiration than on the prior examination. Previously noted consolidation in the me dial left lower lung has cleared. Both costophrenic angles remain well delineated. The heart is enl arged, stable from prior. CONCLUSION: Interval resolution of consolidation left lower lobe and new areas of patchy infiltrate in the centra l lungs bilaterally. Augustus Stauffer MD on August 17, 2016 at 17:53 Board Certified Radiologist. This report was verified electronically.
--- NOTE | 2016-08-17 18:19 | RADRPT ---
EXAM DATE/TIME: 08/17/2016 17:39 [facility] COMPARISON: No previous studies available for comparison. INDICATIONS : Dizziness today. RADIATION DOSE: 38.09 CTDIvol (mGy) MEDICAL HISTORY : Myocardial infarction. diabetes SURGICAL HISTORY : Tonsillectomy. ENCOUNTER: Initial ACUITY: 1 day PAIN SCALE: 0/10 LOCATION: Bilateral head TECHNIQUE: Multiple contiguous axial images were obtained of the head. Using automated exposure control and adj ustment of the mA and/or kV according to patient size, radiation dose was kept as low as reasonably a chievable to obtain optimal diagnostic quality images. FINDINGS: CEREBRUM: The, sulci, and basal cisterns are prominent characteristic of moderate severity central cortical atr ophy. There is also lacunar infarct in the right centrum semi-ovale. There is mild decreased attenu ation scattered in the supratentorial white matter.. No evidence of midline shift, mass lesion, hemo rrhage or acute infarction. No extra-axial fluid collections are seen. POSTERIOR FOSSA: The cerebellum and brainstem are intact. The 4th ventricle is midline. The cerebellopontine angle i s unremarkable. EXTRACRANIAL: The visualized portion of the orbits is intact. Abnormal appearance to the right maxillary sinus wit h expansion of the medial wall and the right sinus filled with heterogeneous density soft tissue mate rial. The anterior wall of the maxillary sinus is similar in thickness the contralateral side. Ther e is inward bowing of the medial wall into the nasal cavity to the nasal septum. Questionable expans ion of the posterior floor of the orbit as well.. SKULL: The calvaria is intact. No evidence of skull fracture. CONCLUSION: 1. Moderate severity central and cortical atrophy. No acute findings in the brain. 2. Right maxillary sinus disease with heterogeneous density and expansion of the medial wall. Probab le mucocele. Augustus Stauffer MD on August 17, 2016 at 17:57 Board Certified Radiologist. This report was verified electronically.
--- NOTE | 2016-08-17 18:22 | PD ---
HPI Chief Complaint: Syncope/Near-Syncope Time Seen by Provider: 17:26 Travel History International Travel<30 days: No Contact w/Intl Traveler<30days: No Traveled to known affect area: No History of Present Illness HPI Patient is a 75-year-old male who comes in after a near-syncopal episode. He was recently here and had an ablation done for A. fib. He says he was feeling well today and was sitting with his legs up in his recliner due to swelling. He says he tried to get up and go to the bathroom when he suddenly felt very weak acute is going to pass out. He is helped him get to the ground. He defecated on himself. He denies passing out. He denies hitting his head. He says he has been feeling a little short of breath, and had pain to his upper left chest and his left arm. He says the pain to his left chest started earlier today and he tried resting in bed to make it better. He denies fever or chills. He denies nausea or vomiting. He has pain to both legs, which she says has been there since he underwent the ablation. He says they went through both groins to perform the ablation. PFSH Past Medical History Arthritis: Yes Asthma: No Autoimmune Disease: No Blood Disorders: No Anxiety: Yes Depression: No Heart Rhythm Problems: Yes Cancer: Yes (melanoma, colon) Cardiac Catheterization: Yes (X1) Cardiovascular Problems: Yes High Cholesterol: Yes Chemotherapy: No Chest Pain: No Congestive Heart Failure: No COPD: No Cerebrovascular Accident: No Diabetes: Yes Patient Takes Glucophage: No Diminished Hearing: No Diverticulitis: Yes Endocrine: Yes (DM) Gastrointestinal Disorders: Yes (diverticulosis) GERD: No Glaucoma: No Gout: Yes Genitourinary: Yes (freq) Headaches: No Hepatitis: No Hiatal Hernia: Yes Hypertension: Yes Immune Disorder: No Kidney Stones: No Musculoskeletal: No Neurologic: No Psychiatric: Yes (anxiety) Reproductive: No Respiratory: No Immunizations Current: Yes Migraines: No Myocardial Infarction: Yes Radiation Therapy: No Renal Failure: No Seizures: No Sickle Cell Disease: No Sleep Apnea: No Thyroid Disease: No Ulcer: No Tetanus Vaccination: Unknown Influenza Vaccination: No Past Surgical History Abdominal Surgery: Yes (colon resection) AICD: No Appendectomy: No Arteriovenous Shunt: No Cardiac Surgery: Yes (ablation Dr aragon ) Cholecystectomy: Yes Ear Surgery: No Endocrine Surgery: No Eye Surgery: No Genitourinary Surgery: No Gynecologic Surgery: No Insulin Pump: No Joint Replacement: No Oral Surgery: Yes (dentures) Pacemaker: No Thoracic Surgery: No Tonsillectomy: Yes (T&A) Other Surgery: Yes (melanoma) Social History Alcohol Use: No Tobacco Use: No Substance Use: No Allergies-Medications (Allergen,Severity, Reaction): Coded Allergies: Contrast Media (Verified Allergy, Severe, RASH, ITCHING, 08/17/16) Shellfish (Verified Allergy, Severe, RASH, ITCHING, 08/17/16) Reported Meds & Prescriptions Reported Meds & Active Scripts Active Metformin (Metformin HCl) 500 Mg Tab 500 Mg PO BIDPC With meals Glipizide 10 Mg Tab 10 Mg PO BIDAC Take 30 minutes before a meal Oxycodone-Acetaminophen 5-325 mg Tab 1 Tab PO Q4H PRN Lopressor (Metoprolol Tartrate) 100 Mg Tab 50 Mg PO Q12HR [Artificial Tears Opth Soln] 300 DROP/15 ML Soln 1 Drop EACH EYE Q4H PRN Eliquis (Apixaban) 5 Mg Tab 5 Mg PO BID Amiodarone (Amiodarone HCl) 200 Mg Tab 200 Mg PO DAILY Reported Temazepam 15 Mg Cap 15 Mg PO HS PRN Pantoprazole (Pantoprazole Sodium) 40 Mg Tab 40 Mg PO DAILY Alprazolam 0.25 Mg Tab 0.25 Mg PO BID Lasix (Furosemide) 40 Mg Tab 40 Mg PO DAILY Terazosin (Terazosin HCl) 5 Mg Cap 5 Mg PO HS Allopurinol 100 Mg Tab 200 Mg PO BID Review of Systems Except as stated in HPI: all other systems reviewed are Neg General / Constitutional: No: Fever, Chills HENT: No: Headaches Cardiovascular: Positive: Chest Pain or Discomfort Respiratory: Positive: Shortness of Breath Gastrointestinal: No: Nausea, Vomiting Genitourinary: No: Dysuria Skin: No Change in Pigmentation Neurologic: Positive: Dizziness Physical Exam Narrative GENERAL: Awake and alert, in no acute distress. SKIN: Focused skin assessment warm/dry. Old ecchymosis to bilateral lower extremities. HEAD: Atraumatic. Normocephalic. EYES: Pupils equal and round. No scleral icterus. Pale conjunctiva. Extraocular movements intact. ENT: Mucous membranes pink and moist. NECK: Trachea midline. No JVD. CARDIOVASCULAR: Regular rate and rhythm. No murmur appreciated. RESPIRATORY: No accessory muscle use. Clear to auscultation. Breath sounds equal bilaterally. GASTROINTESTINAL: Abdomen soft, non-tender, nondistended. RECTAL: Brown stool, positive for blood. MUSCULOSKELETAL: No obvious deformities. No clubbing. No cyanosis. 2+ pitting edema to bilateral lower extremities. NEUROLOGICAL: Awake and alert. No obvious cranial nerve deficits. Motor grossly within normal limits. Normal speech. PSYCHIATRIC: Appropriate mood and affect; insight and judgment normal. Data Data Last Documented VS Vital Signs Date Time Temp Pulse Resp B/P Pulse Ox O2 Delivery O2 Flow Rate FiO2 08/17/16 18:00 68 16 115/69 94 Nasal Cannula 2 08/17/16 17:24 98.0 Orders Electrocardiogram (08/17/16 ) Complete Blood Count With Diff (08/17/16 17:26) Comprehensive Metabolic Panel (08/17/16 17:) B-Type Natriuretic Peptide (08/17/16 17:) Troponin I (08/17/16 17:26) Act Partial Throm Time (Ptt) (08/17/16 17:26) Prothrombin Time / Inr (Pt) (08/17/16 17:26) Urinalysis - C+S If Indicated (08/17/16 17:26) Ua Includes Microscopic (08/17/16 17:26) Chest, Single Ap (08/17/16 17:26) Ct Brain W/O Iv Contrast(Rout) (08/17/16 17:26) Ecg Monitoring (08/17/16:) Iv Access Insert/Monitor (08/17/16:) Oximetry (08/17/16 17:26) Type And Screen (08/17/16 19:02) Red Blood Cells (Rbc) (08/17/16 19:02) Blood Product Administration .UPON TRANSFUSION (08/17/16 19:02) Sodium Chlor 0.9% 250 Ml Inj (Ns 250 Ml (08/17/16 19:15) Pantoprazole Inj (Protonix Inj) (08/17/16 19:45) Pantoprazole Inj (Protonix Inj) (08/17/16 19:45) Admit Order (Ed Use Only) (08/17/16 ) Labs Laboratory Tests Test 08/17/16 17:45 White Blood Count 6.7 TH/MM3 Red Blood Count 2.51 MIL/MM3 Hemoglobin 7.4 GM/DL Hematocrit 23.6 % Mean Corpuscular Volume 94.1 FL Mean Corpuscular Hemoglobin 29.5 PG Mean Corpuscular Hemoglobin 31.4 % Concent Red Cell Distribution Width 18.5 % Platelet Count 168 TH/MM3 Mean Platelet Volume 10.1 FL Neutrophils (%) (Auto) 86.0 % Lymphocytes (%) (Auto) 6.1 % Monocytes (%) (Auto) 6.3 % Eosinophils (%) (Auto) 1.2 % Basophils (%) (Auto) 0.4 % Neutrophils # (Auto) 5.8 TH/MM3 Lymphocytes # (Auto) 0.4 TH/MM3 Monocytes # (Auto) 0.4 TH/MM3 Eosinophils # (Auto) 0.1 TH/MM3 Basophils # (Auto) 0.0 TH/MM3 CBC Comment DIFF FINAL Differential Comment Prothrombin Time 14.0 SEC Prothromb Time International 1.3 RATIO Ratio Activated Partial 28.2 SEC Thromboplast Time Sodium Level 137 MEQ/L Potassium Level 3.8 MEQ/L Chloride Level 98 MEQ/L Carbon Dioxide Level 24.6 MEQ/L Anion Gap 14 MEQ/L Blood Urea Nitrogen 47 MG/DL Creatinine 2.65 MG/DL Estimat Glomerular Filtration 24 ML/MIN Rate Random Glucose 229 MG/DL Calcium Level 8.9 MG/DL Total Bilirubin 1.3 MG/DL Aspartate Amino Transf 44 U/L (AST/SGOT) Alanine Aminotransferase 17 U/L (ALT/SGPT) Alkaline Phosphatase 236 U/L Troponin I 2.45 NG/ML B-Type Natriuretic Peptide 2528 PG/ML Total Protein 6.4 GM/DL Albumin 3.0 GM/DL [facility] Medical Decision Making Medical Screen Exam Complete: Yes Emergency Medical Condition: Yes Medical Record Reviewed: Yes Interpretation(s) ECG shows a flutter at 58, no ST elevation. There is T-wave inversions in V3 through V6. Differential Diagnosis ACS versus arrhythmia versus anemia versus CVA versus infection Narrative Course Patient is a 75-year-old male who comes in complaining of weakness and near syncope. Exam shows no focal neurologic deficit. There is blood in his stool. IV status, labs sent. Labs concerning for hemoglobin of 7.4. Patient is on Eliquis with blood in his stool. He says he has a history of stomach ulcers. Chest x-ray does show some patchiness in his lungs. He has history of CHF with an EF of 21%. Patient will be admitted for anemia and GI bleed. Given one unit of blood. Critical Care Narrative Aggregate critical care time was 35 minutes. Time to perform other separately billable procedures was not included in the critical care time. My time did not include minutes spent treating any other patients simultaneously or on activities that did not directly contribute to the patient's treatment. The services I provided to this patient were to treat and/or prevent clinically significant deterioration that could result in: Serious illness or I provided critical care services requiring my management, as noted below: Chart data review, documentation time, medication orders and management, vital sign assessments/reviewing monitor data, ordering and reviewing lab tests, ordering and interpreting/reviewing x-rays and diagnostic studies, care of the patient and discussion of the patient with the admitting physicians. Diagnosis Primary Impression: GI bleed Qualified Code: K92.2 - Gastrointestinal hemorrhage, unspecified gastrointestinal hemorrhage type Additional Impressions: Anemia Qualified Code: D64.89 - Anemia due to other cause, not classified Near syncope Admitting Information Admitting Physician Requests: Admit Condition: Stable Diamante Mendes MD Aug 17, 2016 18:22
[2016-08-17 18:39] LABS: AUTOMATED NEUTROPHIL # 5.8 TH/MM3 (1.8-7.7); BASOPHIL % 0.4 % (0.0-2.0); EOSINOPHIL # 0.1 TH/MM3 (0-0.4); EOSINOPHIL % 1.2 % (0.0-4.0); HEMATOCRIT 23.6 % (39.0-51.0); HEMO FLAGS DIFF FINAL; LYMPH % 6.1 % (9.0-44.0); LYMPHOCYTE # 0.4 TH/MM3 (1.0-4.8); MEAN CELL VOLUME 94.1 FL (80.0-100.0); MEAN CORPUSCULAR HEMOGLOBIN 29.5 PG (27.0-34.0); MEAN CORPUSCULAR HGB CONC 31.4 % (32.0-36.0); MONO % 6.3 % (0.0-8.0); PLATELET COUNT 168 TH/MM3 (150-450); RED BLOOD COUNT 2.51 MIL/MM3 (4.50-5.90); RED CELL DISTRIBUTION WIDTH 18.5 % (11.6-17.2); WHITE BLOOD COUNT 6.7 TH/MM3 (4.0-11.0)
[2016-08-17 18:54] LABS: APTT (PATIENT) 28.2 SEC (24.3-30.1); INTERNATIONAL NORMALIZED RATIO 1.3 RATIO
[2016-08-17 19:08] LABS: ANION GAP 14 MEQ/L (5-15); AST (GOT) 44 U/L (15-37); BICARBONATE 24.6 MEQ/L (21.0-32.0); BLOOD UREA NITROGEN 47 MG/DL (7-18); CHLORIDE 98 MEQ/L (98-107); GLOMERULAR FILTRATION RATE 24 ML/MIN (>89); POTASSIUM 3.8 MEQ/L (3.5-5.1); SODIUM (NA) 137 MEQ/L (136-145)
[2016-08-17 19:13] LABS: ALKALINE PHOSPHATASE 236 U/L (45-117); ALT (GPT) 17 U/L (12-78); TOTAL BILIRUBIN ADULT 1.3 MG/DL (0.2-1.0)
[2016-08-17] MEDS ORDERED: SODIUM CHLOR 0.9% 250 ML INJ 250 ML IV ONE (19:15)
[2016-08-17] MEDS ORDERED: ONDANSETRON HCL 4 MG/2 ML VIAL IV PRN (19:45)
[2016-08-17] MEDS ORDERED: ZOLPIDEM TARTRATE 5 MG TAB PO PRN (19:45)
[2016-08-17] MEDS ORDERED: SODIUM CHLORIDE 0.9% FLUSH 10 ML FLUSH PRN (19:45)
[2016-08-17] MEDS ORDERED: PANTOPRAZOLE INJ 80 MG in SODIUM CHLORIDE 0.9% INJ 35 ML IV ONE (19:45)
[2016-08-17] MEDS ORDERED: CHLORHEXIDINE GLUCONATE 2 % 1 PACK (2 CLOTHS) TOP PRN (19:45)
[2016-08-17] MEDS ORDERED: ACETAMINOPHEN 325 MG TAB PO PRN (19:45)
[2016-08-17] MEDS ORDERED: RESP: ALBUTEROL 2.5 MG/IPRATROPIUM 0.5 MG NEB (PRN) INH (19:45)
[2016-08-17] MEDS ORDERED: MISCELLANEOUS NURSING INFORMATION XX SCH (19:45)
[2016-08-17] MEDS ORDERED: MORPHINE SULFATE 4 MG/ML INJ IV PRN (19:45)
[2016-08-17] MEDS ORDERED: METOCLOPRAMIDE HCL 10 MG/2 ML VIAL IV PRN (19:45)
--- NOTE | 2016-08-17 19:53 | HHI.HP ---
[facility] Service Critical Care Medicine Primary Care Physician Alirio Johnson MD Admission Diagnosis NSTEMI, GI bleed Diagnosis: Travel History International Travel<30 Days: No Contact w/Intl Traveler <30 Da: No Traveled to Known Affected Are: No History of Present Illness 75-year-old male comes in after a near-syncopal episode. He recently underwent an ablation for atrial fibrillation and was placed on Eliquis after procedure . He was feeling well today and was sitting with his legs up in his recliner due to swelling. He says he tried to get up and go to the bathroom when he suddenly felt very weak near to pass out. He is helped him get to the ground. He defecated on himself. He denies losing consciousness. He has been feeling short of breath, and had pain to his upper left chest and his left arm. He says the pain to his left chest started earlier today and he tried resting in bed to make it better. He denies fever or chills. He denies nausea or vomiting. Review of Systems Constitutional: COMPLAINS OF: Diaphoretic episodes, Fatigue, DENIES: Fever, Weight gain, Weight loss, Chills, Dizziness, Change in appetite, Night Sweats Endocrine: DENIES: Heat/cold intolerance, Polydipsia, Polyuria, Polyphagia Eyes: DENIES: Blurred vision, Diplopia, Eye inflammation, Eye pain, Vision loss , Photosensitivity, Double Vision Ears, nose, mouth, throat: DENIES: Tinnitus, Hearing loss, Vertigo, Nasal discharge, Oral lesions, Throat pain, Hoarseness, Ear Pain, Running Nose, Epistaxis, Sinus Pain, Toothache, Odynophagia Respiratory: COMPLAINS OF: Shortness of breath, DENIES: Apneas, Cough, Snoring , Wheezing, Hemoptysis, Sputum production Cardiovascular: COMPLAINS OF: Chest pain, Syncope, Lower Extremity Edema, DENIES: Palpitations, Dyspnea on Exertion, PND, Orthopnea, Claudication Gastrointestinal: COMPLAINS OF: Bloody stools, DENIES: Abdominal pain, Black stools, Constipation, Diarrhea, Nausea, Vomiting, Difficulty Swallowing, Anorexia Genitourinary: DENIES: Sexual dysfunction, Urinary frequency, Urinary incontinence, Urgency, Hematuria, Dysuria, Nocturia, Penile Discharge, Testicular Pain, Testicular Swelling Musculoskeletal: DENIES: Joint pain, Muscle aches, Stiffness, Joint Swelling, Back pain, Neck pain Integumentary: DENIES: Abnormal pigmentation, Nail changes, Pruritus, Rash Hematologic/lymphatic: DENIES: Bruising, Lymphadenopathy Immunologic/allergic: DENIES: Eczema, Urticaria Neurologic: DENIES: Abnormal gait, Headache, Localized weakness, Paresthesias, Seizures, Speech Problems, Tremor, Poor Balance Psychiatric: DENIES: Anxiety, Confusion, Mood changes, Depression, Hallucinations, Agitation, Suicidal Ideation, Homicidal Ideation, Delusions Past Family Social History Allergies: Coded Allergies: Contrast Media (Verified Allergy, Severe, RASH, ITCHING, 08/17/16) Shellfish (Verified Allergy, Severe, RASH, ITCHING, 08/17/16) Past Medical History Arthritis Anxiety Atrial fibrillation Melanoma of colon Cardiac Catheterization High Cholesterol Diabetes mellituss Diverticulitis Gout Hiatal Hernia Hypertension Prostate cancer Papillary renal cell carcinoma Reported Medications Reported Meds & Active Scripts Active Metformin (Metformin HCl) 500 Mg Tab 500 Mg PO BIDPC With meals Glipizide 10 Mg Tab 10 Mg PO BIDAC Take 30 minutes before a meal Oxycodone-Acetaminophen 5-325 mg Tab 1 Tab PO Q4H PRN Lopressor (Metoprolol Tartrate) 100 Mg Tab 50 Mg PO Q12HR [Artificial Tears Opth Soln] 300 DROP/15 ML Soln 1 Drop EACH EYE Q4H PRN Eliquis (Apixaban) 5 Mg Tab 5 Mg PO BID Amiodarone (Amiodarone HCl) 200 Mg Tab 200 Mg PO DAILY Reported Temazepam 15 Mg Cap 15 Mg PO HS PRN Pantoprazole (Pantoprazole Sodium) 40 Mg Tab 40 Mg PO DAILY Alprazolam 0.25 Mg Tab 0.25 Mg PO BID Lasix (Furosemide) 40 Mg Tab 40 Mg PO DAILY Terazosin (Terazosin HCl) 5 Mg Cap 5 Mg PO HS Allopurinol 100 Mg Tab 200 Mg PO BID Active Ordered Medications Current Medications Medications (Trade) Dose Ordered Sig/Fiordaliza Route PRN Reason Start Time Stop Time Status Last Admin Dose Admin Sodium Chloride 250 ml @ 15 mls/hr ONCE ONCE IV 08/17/16 19:15 08/18/16 11:54 08/17/16 21:08 Pantoprazole Sodium 80 mg/ Sodium Chloride 100 ml @ 10 mls/hr CONTINUOUS IV 08/17/16 19:45 08/17/16 20:06 Sodium Chloride (NS 1000 ml Inj) 1,000 ml @ 125 mls/hr Q8H IV 08/17/16 19:42 08/17/16 20:13 Sodium Chloride (NS Flush) 2 ml UNSCH PRN .XX FLUSH AFTER USING IV ACCESS 08/17/16 19:45 Sodium Chloride (NS Flush) 2 ml BID .XX 08/17/16 21:00 Acetaminophen (Tylenol) 650 mg Q6H PRN PO PAIN 1-10 AND/OR FEVER >101F 08/17/16 19:45 Morphine Sulfate (Morphine Inj) 2 mg Q2H PRN IV PAIN SCALE 6 TO 10 08/17/16 19:45 Pantoprazole Sodium (Protonix Inj) 40 mg Q12H IV 08/17/16 21:00 Ondansetron HCl (Zofran Inj) 4 mg Q6H PRN IV NAUSEA OR VOMITING 08/17/16 19:45 Metoclopramide HCl (Reglan Inj) 10 mg Q6H PRN IV NAUSEA OR VOMITING 08/17/16 19:45 Miscellaneous Information 1 Q361D XX 08/17/16 19:45 Chlorhexidine Gluconate (Chlorhexidine 2% Cloth) 3 pack Taper DAILY@04 TOP 08/18/16 04:00 08/14/17 03:59 Chlorhexidine Gluconate (Chlorhexidine 2% Cloth) 3 pack UNSCH PRN TOP HYGIENIC CARE 08/17/16 19:45 Alprazolam (Xanax) 0.25 mg BID PO 08/17/16 21:00 08/17/16 21:08 Amiodarone HCl (Cordarone) 200 mg DAILY PO 08/17/16 20:00 08/17/16 20:12 Oxycodone/ Acetaminophen (Percocet 5-325 Mg) 1 tab Q4H PRN PO pain 1-10 08/17/16 20:00 Temazepam (Restoril) 15 mg HS PRN PO INSOMNIA 08/17/16 20:00 Terazosin HCl (Hytrin) 5 mg HS PO 08/17/16 21:00 08/17/16 21:07 Non-Formulary Medication 1 drop Q4H PRN EACH EYE DRY EYE 08/17/16 20:00 Dextrose (D50w (Vial) Inj) 25 ml UNSCH PRN IV PUSH HYPOGLYCEMIA-SEE COMMENTS 08/17/16 20:00 Glucagon (Glucagon Inj) 1 mg UNSCH PRN OTHER HYPOGLYCEMIA-SEE COMMENTS 08/17/16 20:00 Family History Noncontributory Social History Negative 3 Physical Exam Vital Signs Vital Signs Date Time Temp Pulse Resp B/P Pulse Ox O2 Delivery O2 Flow Rate FiO2 08/17/16 18:00 68 16 115/69 94 Nasal Cannula 2 08/17/16 17:45 82 18 100/52 98 Room Air 08/17/16 17:35 16 98 Room Air 08/17/16 17:29 77 16 98 Room Air 08/17/16 17:24 98.0 74 16 107/63 98 Physical Exam GENERAL: Well-nourished, well-developed patient. Pale elderly man, SKIN: Warm and dry. HEAD: Normocephalic. EYES: No scleral icterus. No injection or drainage. NECK: Supple, trachea midline. No JVD or lymphadenopathy. CARDIOVASCULAR: Regular rate and rhythm without murmurs, gallops, or rubs. RESPIRATORY: Breath sounds equal bilaterally. No accessory muscle use. GASTROINTESTINAL: Abdomen soft, non-tender, nondistended. MUSCULOSKELETAL: No cyanosis, or edema. BACK: Nontender without obvious deformity. No CVA tenderness. EXTREMITIES: No clubbing cyanosis or edema Laboratory Laboratory Tests Test 08/17/16 17:45 White Blood Count 6.7 Red Blood Count 2.51 Hemoglobin 7.4 Hematocrit 23.6 Mean Corpuscular Volume 94.1 Mean Corpuscular Hemoglobin 29.5 Mean Corpuscular Hemoglobin 31.4 Concent Red Cell Distribution Width 18.5 Platelet Count 168 Mean Platelet Volume 10.1 Neutrophils (%) (Auto) 86.0 Lymphocytes (%) (Auto) 6.1 Monocytes (%) (Auto) 6.3 Eosinophils (%) (Auto) 1.2 Basophils (%) (Auto) 0.4 Neutrophils # (Auto) 5.8 Lymphocytes # (Auto) 0.4 Monocytes # (Auto) 0.4 Eosinophils # (Auto) 0.1 Basophils # (Auto) 0.0 CBC Comment DIFF FINAL Differential Comment Prothrombin Time 14.0 Prothromb Time International 1.3 Ratio Activated Partial 28.2 Thromboplast Time Sodium Level 137 Potassium Level 3.8 Chloride Level 98 Carbon Dioxide Level 24.6 Anion Gap 14 Blood Urea Nitrogen 47 Creatinine 2.65 Estimat Glomerular Filtration 24 Rate Random Glucose 229 Calcium Level 8.9 Total Bilirubin 1.3 Aspartate Amino Transf 44 (AST/SGOT) Alanine Aminotransferase 17 (ALT/SGPT) Alkaline Phosphatase 236 Troponin I 2.45 B-Type Natriuretic Peptide 2528 Total Protein 6.4 Albumin 3.0 Result Diagram: 08/17/16174408/17/161744 Imaging Last [address] 08/17/16 1726 Signed Impressions: Service Date/Time: Wednesday, August 17, 2016 17:39 - CONCLUSION: 1. Moderate severity central and cortical atrophy. No acute findings in the brain. 2. Right maxillary sinus disease with heterogeneous density and expansion of the medial wall. Probable mucocele. Augustus Stauffer MD Chest X-Ray 08/17/161725 Signed Impressions: Service Date/Time: Wednesday, August 17, 2016 17:45 - CONCLUSION: Interval resolution of consolidation left lower lobe and new areas of patchy infiltrate in the central lungs bilaterally. Augustus Stauffer MD Assessment and Plan Assessment and Plan Nearby syncope - Due to severe anemia - Post Hemorrhagic - Treat underlying condition GI bleed - Hold Eliquis - Gastroenterology consult - Protonix twice a day IV - Nothing by mouth - IV fluids resuscitation Diabetes - Hold home by mouth meds while in the ICU - Insulin sliding scale Hypertension - Hold all by mouth meds due to GI bleed and risk of hypertension - Resume when stable Coagulopathy - Due to Eliquis - Supportive care Acute kidney injury - Monitor urine output - Avoid nephrotoxins - IV fluids volume replacement - Monitor electrolytes and creatinine DVT GI prophylaxis - Teds SCDs - No pharmacological prophylaxis due to active GI bleed - Protonix IV twice a day Critical Care: The total critical care time was 35 minutes. Time to perform other separately billable procedures was not included in the critical care time. Raffaele Mishra MD Aug 17, 2016 19:53
[2016-08-17] MEDS ORDERED: DEXTROSE 50% IN WATER 50 ML VIAL(D50) IV PUSH PRN (20:00)
[2016-08-17] MEDS ORDERED: [UNRECOGNIZED DRUG - OTHER] EACH EYE PRN (20:00)
[2016-08-17] MEDS ORDERED: oxyCODONE/ACETAMINOPHEN 5 MG/325 MG TAB PO PRN (20:00)
[2016-08-17] MEDS ORDERED: GLUCAGON 1 MG/ML VIAL OTHER PRN (20:00)
[2016-08-17] MEDS: PANTOPRAZOLE INJ 80 MG in SODIUM CHLORIDE 0.9% INJ 100 ML IV SCH (20:06)
[2016-08-17] MEDS: AMIODARONE 200 MG TAB PO SCH (20:12)
[2016-08-17] MEDS: SODIUM CHLOR 0.9% 1000 ML INJ 1,000 ML IV SCH (20:13)
[2016-08-17 20:31] LABS: BLOOD, URINE NEG (NEG); COMMENT (UR) CULT NOT INDICATED; CULTURE IF INDICATED CULT NOT INDICATED; GLUCOSE,URINE NEG (NEG); HYALINE CAST, URINE 18 /lpf (RARE); KETONE, URINE NEG (NEG); MUCUS URINE FEW /lpf (OCC); NITRITE,URINE NEG (NEG); PH, URINE 5.5 (5.0-8.5); SQUAMOUS EPITHELIAL CELL URINE <1 /hpf (0-5); URINE COLOR YELLOW (YELLW/STRAW)
[2016-08-17] MEDS ORDERED: PANTOPRAZOLE SODIUM 40 MG VIAL IV SCH (21:00)
[2016-08-17] MEDS: SODIUM CHLORIDE 0.9% FLUSH 10 ML FLUSH SCH (21:00)
[2016-08-17] MEDS: TERAZOSIN HCL 5 MG CAP PO SCH (21:07)
[2016-08-17] MEDS: ALPRAZolam 0.25 MG TAB PO SCH (21:08)
[2016-08-17] MEDS: INSULIN ASPART SUPPLEMENTAL SCALE SQ SCH (21:22)
[2016-08-17 23:56] LABS: HEMATOCRIT 22.7 % (39.0-51.0); REVIEW FLAG FINAL
[2016-08-18] VITALS (19 sets, daily range): BP systolic 123–155; BP diastolic 62–95; PULSE 56–86; RESP 21–27; TEMP 97.7–98.2; O2SAT 94–98
[2016-08-18] MEDS: TEMAZEPAM 15 MG CAP PO PRN (03:00)
[2016-08-18] MEDS: PANTOPRAZOLE INJ 80 MG in SODIUM CHLORIDE 0.9% INJ 100 ML IV SCH ×3 (03:00→20:54)
[2016-08-18] MEDS: CHLORHEXIDINE GLUCONATE 2 % 1 PACK (2 CLOTHS) TOP SCH (04:00)
[2016-08-18] MEDS: SODIUM CHLOR 0.9% 1000 ML INJ 1,000 ML IV SCH (04:09)
[2016-08-18 04:55] LABS: INTERNATIONAL NORMALIZED RATIO 1.2 RATIO; PROTHROMBIN TIME - PATIENT 13.3 SEC (9.8-11.6)
[2016-08-18 05:17] LABS: ANION GAP 12 MEQ/L (5-15); AST (GOT) 40 U/L (15-37); BICARBONATE 24.1 MEQ/L (21.0-32.0); BLOOD UREA NITROGEN 47 MG/DL (7-18); CHLORIDE 102 MEQ/L (98-107); GLOMERULAR FILTRATION RATE 26 ML/MIN (>89); MAGNESIUM 1.9 MG/DL (1.5-2.5); POTASSIUM 3.7 MEQ/L (3.5-5.1); SODIUM (NA) 138 MEQ/L (136-145)
[2016-08-18 05:21] LABS: ALKALINE PHOSPHATASE 208 U/L (45-117); ALT (GPT) 17 U/L (12-78); TOTAL BILIRUBIN ADULT 1.7 MG/DL (0.2-1.0)
[2016-08-18] MEDS: INSULIN ASPART SUPPLEMENTAL SCALE SQ SCH ×4 (07:00→21:44)
[2016-08-18] MEDS: ALPRAZolam 0.25 MG TAB PO SCH ×2 (07:40→20:53)
--- NOTE | 2016-08-18 08:09 | PD.CONS ---
HPI Service CV Consult Requested By Primary Care Physician Alirio Johnson MD History of Present Illness Here with CAD s/p coronary angiogram 2006 showing multivessel disease not amendable to intervention due to small vessels, HTN, hyperlipidemia admitted for near syncope with collapse. He states her underwent atrial fibrillation ablation 3 weeks ago. He was having problems with bradycardia due to intermittent type 2 AVB and was taking metoprolol 50 mg BID. Metoprolol was then stopped. Dr. Saxena planned on getting a Holter 60 days from the beginning of July. He denies chest pain (Jose Manuel Arnold) Review of Systems Consitutional: DENIES: Fatigue, Fever, Chills, Weight gain, Weight loss Eyes: DENIES: Amaurosis Fugax, Change in vision HEENT: DENIES: Lightheadedness, Change in hearing Respiratory: DENIES: See HPI, Cough, Snoring, Shortness of breath, Wheezing, Sputum production Cardiovascular: COMPLAINS OF: See HPI Gastrointestinal: DENIES: Nausea, Vomiting, Change in bowel habits, Reflux, Bloody stools, Melena Genitourinary: DENIES: Urinary incontinence, Difficulty voiding Integumentary: DENIES: Rash Neurologic: DENIES: Tingling or numbness, Memory problems, Poor Balance, Stroke symptoms Musculoskeletal: DENIES: Joint pain, Muscle pain, Limited range of motion, Back pain Psychiatric: DENIES: Anxiety, Depression, Sleep disturbances Hematologic: DENIES: Bruising tendencies, Bleeding tendencies Endocrine: DENIES: Weight gain, Weight loss, Thyroid disease (Jose Manuel Arnold ) Past Family Social History Allergies: Coded Allergies: Contrast Media (Verified Allergy, Severe, RASH, ITCHING, 08/17/16) Shellfish (Verified Allergy, Severe, RASH, ITCHING, 08/17/16) Past Medical History see HPI Arthritis Anxiety Melanoma of colon Diabetes mellituss Diverticulitis Gout Hiatal Hernia Prostate cancer Papillary renal cell carcinoma Past Surgical History see HPI Reported Medications Reported Meds & Active Scripts Active Metformin (Metformin HCl) 500 Mg Tab 500 Mg PO BIDPC With meals Glipizide 10 Mg Tab 10 Mg PO BIDAC Take 30 minutes before a meal Oxycodone-Acetaminophen 5-325 mg Tab 1 Tab PO Q4H PRN Lopressor (Metoprolol Tartrate) 100 Mg Tab 50 Mg PO Q12HR [Artificial Tears Opth Soln] 300 DROP/15 ML Soln 1 Drop EACH EYE Q4H PRN Eliquis (Apixaban) 5 Mg Tab 5 Mg PO BID Amiodarone (Amiodarone HCl) 200 Mg Tab 200 Mg PO DAILY Reported Temazepam 15 Mg Cap 15 Mg PO HS PRN Pantoprazole (Pantoprazole Sodium) 40 Mg Tab 40 Mg PO DAILY Alprazolam 0.25 Mg Tab 0.25 Mg PO BID Lasix (Furosemide) 40 Mg Tab 40 Mg PO DAILY Terazosin (Terazosin HCl) 5 Mg Cap 5 Mg PO HS Allopurinol 100 Mg Tab 200 Mg PO BID Active Ordered Medications Current Medications Medications (Trade) Dose Ordered Sig/Fiordaliza Route Start Time Stop Time Status Last Admin Sodium Chloride 250 ml @ 15 mls/hr ONCE ONCE IV 08/17/16 19:15 08/18/16 11:54 08/17/16 21:08 Pantoprazole Sodium 80 mg/ Sodium Chloride 100 ml @ 10 mls/hr CONTINUOUS IV 08/17/16 19:45 08/18/16 03:00 (NS 1000 ml Inj) 1,000 ml @ 125 mls/hr Q8H IV 08/17/16 19:42 08/18/16 04:09 (NS Flush) 2 ml UNSCH PRN .XX 08/17/16 19:45 (NS Flush) 2 ml BID .XX 08/17/16 21:00 (Tylenol) 650 mg Q6H PRN PO 08/17/16 19:45 (Morphine Inj) 2 mg Q2H PRN IV 08/17/16 19:45 (Protonix Inj) 40 mg Q12H IV 08/17/16 21:00 (Zofran Inj) 4 mg Q6H PRN IV 08/17/16 19:45 (Reglan Inj) 10 mg Q6H PRN IV 08/17/16 19:45 Miscellaneous Information 1 Q361D XX 08/17/16 19:45 08/17/16 19:45 (Chlorhexidine 2% Cloth) 3 pack Taper DAILY@04 TOP 08/18/16 04:00 08/14/17 03:59 08/18/16 04:00 (Chlorhexidine 2% Cloth) 3 pack UNSCH PRN TOP 08/17/16 19:45 (Xanax) 0.25 mg BID PO 08/17/16 21:00 08/17/16 21:08 (Cordarone) 200 mg DAILY PO 08/17/16 20:00 08/17/16 20:12 (Percocet 5-325 Mg) 1 tab Q4H PRN PO 08/17/16 20:00 (Restoril) 15 mg HS PRN PO 08/17/16 20:00 08/18/16 03:00 (Hytrin) 5 mg HS PO 08/17/16 21:00 08/17/16 21:07 Non-Formulary Medication 1 drop Q4H PRN EACH EYE 08/17/16 20:00 (D50w (Vial) Inj) 25 ml UNSCH PRN IV PUSH 08/17/16 20:00 (Glucagon Inj) 1 mg UNSCH PRN OTHER 08/17/16 20:00 Family History noncontributory Social History denies smoking, alcohol or substance abuse (Jose Manuel Arnold) Physical Exam Vital Signs Vital Signs Date Time Temp Pulse Resp B/P Pulse Ox O2 Delivery O2 Flow Rate FiO2 08/18/16 06:45 98.2 66 27 152/88 94 08/18/16 06:00 97.7 64 25 142/84 97 08/18/16 06:00 64 08/18/16 04:30 98.0 56 23 141/73 96 08/18/16 04:00 98.2 66 27 152/88 94 08/18/16 04:00 84 08/18/16 02:00 86 08/18/16 01:00 84 08/18/16 00:45 98.2 74 21 154/84 97 08/18/16 00:13 62 20 123/67 94 08/17/16 23:18 97.6 64 14 126/63 97 Nasal Cannula 1.5 08/17/16 23:00 64 18 158/63 96 Nasal Cannula 1.5 08/17/16 22:00 68 18 167/81 98 08/17/16 21:24 97.6 67 16 167/81 98 Nasal Cannula 1.5 08/17/16 21:08 97.0 59 16 149/80 97 Nasal Cannula 1.5 08/17/16 21:00 59 16 149/80 95 Nasal Cannula 1.5 08/17/16 20:06 45 14 118/62 92 Nasal Cannula 2 08/17/16 19:00 55 16 123/71 94 Nasal Cannula 1.5 08/17/16 18:00 68 16 115/69 94 Nasal Cannula 2 08/17/16 17:45 82 18 100/52 98 Room Air 08/17/16 17:35 16 98 Room Air 08/17/16 17:29 77 16 98 Room Air 08/17/16 17:24 98.0 74 16 107/63 98 Physical Exam GENERAL: Well-nourished, well-developed patient in no apparent distress. NECK: No JVD. No carotid bruit. CARDIOVASCULAR: IR IR. S1/S2 no murmur, rub, or gallop. RESPIRATORY: No accessory muscle use. Clear to auscultation. Breath sounds equal bilaterally. GASTROINTESTINAL: Abdomen soft, non-tender, nondistended. MUSCULOSKELETAL: Extremities without clubbing, cyanosis, or edema. Laboratory Laboratory Tests Test 08/17/16 08/17/16 08/17/16 08/17/16 17:45 19:05 20:10 23:42 White Blood Count 6.7 Red Blood Count 2.51 Hemoglobin 7.4 7.6 Hematocrit 23.6 22.7 Mean Corpuscular Volume 94.1 Mean Corpuscular Hemoglobin 29.5 Mean Corpuscular Hemoglobin 31.4 Concent Red Cell Distribution Width 18.5 Platelet Count 168 Mean Platelet Volume 10.1 Neutrophils (%) (Auto) 86.0 Lymphocytes (%) (Auto) 6.1 Monocytes (%) (Auto) 6.3 Eosinophils (%) (Auto) 1.2 Basophils (%) (Auto) 0.4 Neutrophils # (Auto) 5.8 Lymphocytes # (Auto) 0.4 Monocytes # (Auto) 0.4 Eosinophils # (Auto) 0.1 Basophils # (Auto) 0.0 CBC Comment DIFF FINAL Differential Comment Prothrombin Time 14.0 Prothromb Time International 1.3 Ratio Activated Partial 28.2 Thromboplast Time Sodium Level 137 Potassium Level 3.8 Chloride Level 98 Carbon Dioxide Level 24.6 Anion Gap 14 Blood Urea Nitrogen 47 Creatinine 2.65 Estimat Glomerular Filtration 24 Rate Random Glucose 229 Calcium Level 8.9 Total Bilirubin 1.3 Aspartate Amino Transf 44 (AST/SGOT) Alanine Aminotransferase 17 (ALT/SGPT) Alkaline Phosphatase 236 Troponin I 2.45 B-Type Natriuretic Peptide 2528 Total Protein 6.4 Albumin 3.0 Blood Type A POSITIVE Antibody Screen NEGATIVE Crossmatch Leukocyte-Reduced Red Blood Cells Blood Bank Comment Urine Color YELLOW Urine Turbidity HAZY Urine pH 5.5 Urine Specific [place] 1.016 Urine Protein 100 Urine Glucose (UA) NEG Urine Ketones NEG Urine Occult Blood NEG Urine Nitrite NEG Urine Bilirubin NEG Urine Urobilinogen 2.0 Urine Leukocyte Esterase NEG Urine WBC 2 Urine Squamous Epithelial <1 Cells Urine Hyaline Casts 18 Urine Mucus FEW Microscopic Urinalysis Comment CULT NOT INDICATED Test 08/17/16 08/18/16 08/18/16 08/18/16 23:43 00:52 01:01 04:25 Troponin I 2.64 2.67 Nasal Screen MRSA (PCR) MRSA NOT DETECTED Blood Type A POSITIVE Crossmatch Leukocyte-Reduced Red Blood Cells Blood Bank Comment Prothrombin Time 13.3 Prothromb Time International 1.2 Ratio Sodium Level 138 Potassium Level 3.7 Chloride Level 102 Carbon Dioxide Level 24.1 Anion Gap 12 Blood Urea Nitrogen 47 Creatinine 2.41 Estimat Glomerular Filtration 26 Rate Random Glucose 181 Lactic Acid Level 1.4 Calcium Level 8.8 Phosphorus Level 4.8 Magnesium Level 1.9 Total Bilirubin 1.7 Aspartate Amino Transf 40 (AST/SGOT) Alanine Aminotransferase 17 (ALT/SGPT) Alkaline Phosphatase 208 Total Protein 6.0 Albumin 2.9 (Jose Manuel Arnold) Result Diagram: 08/17/16 2342 08/18/16 0425 Assessment and Plan Problem List: (1) CAD (coronary artery disease) (2) Tachy-cristela syndrome (3) HTN (hypertension) (4) CHF (congestive heart failure) Assessment and Plan CHF - Lasix 40 mg IV BID monitor creatinine. Get 2D echo, last echo 07/15/16 showed EF 45% NSTEMI - with need to diureses and allow Eliquis to wash out then plan to r/o ischemia HTN - with his renal dysfunction we will avoid JILLIAN/ARB, will start amlodipine 10 mg daily and make further determinations once we know what is heart function is now (Jose Manuel Arnold) Assessment and Plan presyncope - unclear etiology. anemia on anticoagulation. ? BP drop. 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 getting PRBC. FU Hb. Follow tele. May need usp monitor, ie event monitor or loop recorder, to determine if symptoms HR related. CHF - EF by SPECT 21%, by echo 45%. appears to be fairly well compensated now. avoid over diuresis. NSTEMI - small vessel CAD cath 2006. SPECT last month showed large infarct without ischemia. I will review the prior [facility] films. s/p recent ablation which can also elevate his troponin. Likely proceed with med mgt only. no need to repeat SPECT and prior [facility] suggested disease not amendable to intervention. With Cr elevated, also another reason not to proceed with invasive strategy. anemia - on anticoagulation at home. CHADS-VASC = 6. still having intermittent afib. should be back on anticoagulation when cleared by GI. ARF on CRI - Cr last hospitalization 1.44, now 2.65. probably pre-renal. no ACEi. reduce Lasix dosing. monitor I/O and Cr trend. Will switch amlodpine to hydralazine to avoid LE edema. clear from cardio standpoint to proceed with endoscopy today (Brooks Lance MD) Jose Manuel Arnold Aug 18, 2016 08:09 Brooks Lance MD Aug 18, 2016 08:27
--- NOTE | 2016-08-18 08:35 | HHI.CCPN ---
Subjective Remarks/Hospital Course 75-year-old male comes in after a near-syncopal episode. He recently underwent an ablation for atrial fibrillation and was placed on Eliquis after procedure . He was feeling well today and was sitting with his legs up in his recliner due to swelling. He says he tried to get up and go to the bathroom when he suddenly felt very weak near to pass out. His helped him get to the ground. He defecated on himself. He denies losing consciousness. He has been feeling short of breath, and had pain to his upper left chest and his left arm. He says the pain to his left chest started earlier today and he tried resting in bed to make it better. He denies fever or chills. He denies nausea or vomiting. 08/18/16-Lying in bed no acute distress. Denies chest pain. Chest x-ray shows pulmonary edema BNP is 2528. Troponin peaked at 2.67. Echo 07/21/16 EF 40-45%. No active bleeding reported Objective Vital Signs Date Time Temp Pulse Resp B/P Pulse Ox O2 Delivery O2 Flow Rate FiO2 08/18/16 07:00 98.0 61 24 155/95 96 08/18/16 07:00 Nasal Cannula 1.50 Intake and Output 08/17/16 08/17/16 08/18/16 08:00 16:00 00:00 Intake Total 250 ml Balance 250 ml Result Diagram: 08/17/16 2342 08/18/16 0425 Imaging Last [address] 08/17/16 1726 Signed Impressions: Service Date/Time: Wednesday, August 17, 2016 17:39 - CONCLUSION: 1. Moderate severity central and cortical atrophy. No acute findings in the brain. 2. Right maxillary sinus disease with heterogeneous density and expansion of the medial wall. Probable mucocele. Augustus Stauffer MD Chest X-Ray 08/17/16 1726 Signed Impressions: Service Date/Time: Wednesday, August 17, 2016 17:45 - CONCLUSION: Interval resolution of consolidation left lower lobe and new areas of patchy infiltrate in the central lungs bilaterally. Augustus Stauffer MD Objective Remarks GENERAL: Well-nourished, well-developed patient. Pale elderly man, SKIN: Warm and dry. HEAD: Normocephalic. EYES: No scleral icterus. No injection or drainage. NECK: Supple, trachea midline. No JVD or lymphadenopathy. CARDIOVASCULAR: Regular rate and rhythm without murmurs, gallops, or rubs. RESPIRATORY: Breath sounds equal bilaterally, diminished. No accessory muscle use. GASTROINTESTINAL: Abdomen soft, non-tender, nondistended. MUSCULOSKELETAL: No cyanosis, or edema. BACK: Nontender without obvious deformity. No CVA tenderness. EXTREMITIES: No clubbing cyanosis or edema A/P Assessment and Plan Near syncope - Due to severe anemia - Post Hemorrhagic - Treat underlying condition GI bleed - Hold Eliquis - Gastroenterology consult - Protonix gtt - Nothing by mouth - IV fluids resuscitation-DC due to CHF - Possible Endoscopy today CHF/NSTEMI - Cardiology consulted Dr. Lance - Continue IV Lasix, but reduce to 20 q12, DC IVF - Holding Eliquis due to GIB Diabetes - Hold home by mouth meds while in the ICU - Insulin sliding scale Hypertension - Hold all by mouth meds due to GI bleed and risk of hypertension - Resume when stable Coagulopathy - Due to Eliquis - Supportive care Acute kidney injury - Monitor urine output - Avoid nephrotoxins - Careful diuresis due to CHF - Monitor electrolytes and creatinine DVT GI prophylaxis - Teds SCDs - No pharmacological prophylaxis due to active GI bleed - Protonix IV gtt Critical Care: The total critical care time was 35 minutes. Time to perform other separately billable procedures was not included in the critical care time. Continue ICU care due to multi organ failure and potential for acute decompensation Daphnie Savage MD Aug 18, 2016 08:35
[2016-08-18] MEDS: FUROSEMIDE 20 MG/2 ML VIAL IV PUSH SCH ×2 (08:44→18:14)
[2016-08-18] MEDS: AMIODARONE 200 MG TAB PO SCH (08:44)
[2016-08-18] MEDS ORDERED: FUROSEMIDE 40 MG/4 ML VIAL IV PUSH SCH (09:00)
--- NOTE | 2016-08-18 09:23 | RADRPT ---
EXAM DATE/TIME: 08/18/2016 09:00 [place] COMPARISON: CHEST SINGLE AP, August 17, 2016, 17:45. INDICATIONS : Respiratory disease. MEDICAL HISTORY : Myocardial infarction. diabetes. SURGICAL HISTORY : Tonsillectomy. ENCOUNTER: Subsequent ACUITY: 2 days PAIN SCORE: 0/10 LOCATION: Bilateral chest FINDINGS: A single view of the chest demonstrates the lungs to be symmetrically aerated with developing bibasil ar effusions and concomitant atelectatic changes. I also believe there is some prominence of intersti tial markings suggesting some degree of vascular congestion or volume overload. Heart size remains pr ominent. Degenerative spurring of the dorsal spine. Osseous structures are otherwise intact. CONCLUSION: 1. Developing bibasilar effusions with concomitant atelectatic changes. 2. In addition, there is prominent interstitial markings with cardiomegaly. Spectrum of findings are characteristic of some degree of CHF which has progressed from the prior exam. Darryl Miles MD on August 18, 2016 at 9:18 Board Certified Radiologist. This report was verified electronically.
[2016-08-18] MEDS ORDERED: PROPOFOL 200 MG/20 ML AMP IV ONE ×2 (09:25→16:14)
[2016-08-18 09:31] LABS: AUTOMATED NEUTROPHIL # 5.1 TH/MM3 (1.8-7.7); BASOPHIL # 0.1 TH/MM3 (0-0.2); BASOPHIL % 0.8 % (0.0-2.0); EOSINOPHIL # 0.1 TH/MM3 (0-0.4); EOSINOPHIL % 0.9 % (0.0-4.0); HEMATOCRIT 29.4 % (39.0-51.0); HEMO FLAGS DIFF FINAL; LYMPHOCYTE # 0.6 TH/MM3 (1.0-4.8); MEAN CELL VOLUME 89.5 FL (80.0-100.0); MEAN CORPUSCULAR HEMOGLOBIN 29.9 PG (27.0-34.0); MEAN CORPUSCULAR HGB CONC 33.4 % (32.0-36.0); MONO % 7.4 % (0.0-8.0); NEUT % 81.9 % (16.0-70.0); PLATELET COUNT 159 TH/MM3 (150-450); RED BLOOD COUNT 3.29 MIL/MM3 (4.50-5.90); RED CELL DISTRIBUTION WIDTH 18.3 % (11.6-17.2); WHITE BLOOD COUNT 6.2 TH/MM3 (4.0-11.0)
[2016-08-18] MEDS: SODIUM CHLORIDE 0.9% FLUSH 10 ML FLUSH SCH ×2 (10:10→20:54)
--- NOTE | 2016-08-18 11:06 | PD.CONS ---
HPI History of Present Illness This is a 75 year old who was brought to ER for evaluation after a near syncopal episode. He was resting in a chair and when he got up to go to the bathroom, he became very weak and his legs gave out. He felt as though he would pass out, but he did not actually do so. He was incontinent of a loose stool and had some mild shortness of breath and was brought to the ER for further evaluation, where he was found to have anemia with H&H of 7.4/23.6. He was noted to have some dark stool in the ER. He has a history of atrial fibrillation and underwent ablation 3 weeks ago and afterwards he was started on Eliquis. The patient reports that he's been having dark stools for the past few weeks. He denies any nausea or vomiting, abdominal pain, or gross active bleeding. He does have a problem with alternating constipation and diarrhea. He reports that he will be constipated and therefore take [id number] laxatives and enemas, but then have several days of loose stool once he finally goes. He has not seen any red blood in his stool. He has a history of colon cancer in 2008T3, N0, M0 adenocarcinoma and he underwent resection. He did not receive any adjuvant therapy, but has not had any evidence of recurrence. He also has a history of prostate cancer and he received radiation for this back in 2010. He also has a history of renal cell carcinoma, status post cryoablation treatment. He had imaging in June 2016, which noted the treated mass to be slightly larger than on pretreatment CT. It was recommended that he have follow-up imaging in 6 months. He last had an EGD/colonoscopy (05/16/16)--- -> large friable nodules in the antrum, EGD was otherwise normal, severe gastritis, retroflex views revealed no abnormalities; mild diverticulosis was noted in the left colon, and anatomy consistent with right hemicolectomy, retroflex views revealed no abnormalities, digital rectal exam was performed and revealed no abnormalities of the anus. 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 Of note, the patient reports that he was taking Aleve up until recently for chronic arthritic pain. He is currently hospitalized for near syncopal episode, GI bleeding, CHF/NSTEMI, Acute kidney injury, Elevated troponin's as well as his chronic medical problems. He was evaluated by cardiology and according to their note from earlier today, he was noted to have small vessel coronary artery disease on cardiac catheterization in 2006 and SPECT last month showed large infarct without ischemia. They feel that his troponin elevation could be possibly related to his recent ablation and do not feel that he needs repeat SPECT/Cardiac catheterization and that they will likely recommend medical management. They would like him back on anticoagulation once cleared by GI. Cardiology has cleared the patient for endoscopy. (Gretta Ron) PFSH Past Medical History Anemia. Atherosclerosis of aorta Hypertension Coronary artery disease Atrial fibrillation Chronic kidney disease Depression Alternating constipation/diarrhea Diverticulosis Gastritis Hx Friable gastric nodules GERD Anxiety History of colon cancer, status post resection Hyperlipidemia History of left renal mass Osteoarthritis Pancreatic cyst Renal cell carcinoma, left kidney Rheumatoid arthritis Prostate cancer Restless legs syndrome Thrombocytopenia Type 2 DM Vitamin D deficiency Past Surgical History EGD/Colonoscopy Renal biopsy Skin biopsy Cholecystectomy Excision of lesion shoulders Hx fine needle aspiration Partial colectomy Radiation therapy Tonsillectomy Cardiac catheterization Ablation (Gretta Ron) Coded Allergies: Contrast Media (Verified Allergy, Severe, RASH, ITCHING, 08/17/16) Shellfish (Verified Allergy, Severe, RASH, ITCHING, 08/17/16) Medications Allergies Coded Allergies Type Severity Reaction Last Updated Verified Contrast Media Allergy Severe RASH, ITCHING 08/17/16 Yes Shellfish Allergy Severe RASH, ITCHING 08/17/16 Yes Active Scripts Medications Dose Route/Sig Days Date Category Dose Instructions Temazepam 15 Mg Cap 15 Mg PO HS PRN 08/17/16 Reported Pantoprazole (Pantoprazole Sodium) 40 Mg Tab 40 Mg PO DAILY 08/17/16 Reported Metformin (Metformin HCl) 500 Mg Tab 500 Mg PO BIDPC 07/23/16 Rx With meals Glipizide 10 Mg Tab 10 Mg PO BIDAC 07/23/16 Rx Take 30 minutes before a meal Oxycodone-Acetaminophen 5-325 mg Tab 1 Tab PO Q4H PRN 07/23/16 Rx Lopressor (Metoprolol Tartrate) 100 Mg Tab 50 Mg PO Q12HR 07/23/16 Rx [Artificial Tears Opth Soln] 300 DROP/15 ML Soln 1 Drop EACH EYE Q4H PRN 07/23/16 Rx Eliquis (Apixaban) 5 Mg Tab 5 Mg PO BID 07/23/16 Rx Amiodarone (Amiodarone HCl) 200 Mg Tab 200 Mg PO DAILY 07/23/16 Rx Alprazolam 0.25 Mg Tab 0.25 Mg PO BID 07/15/16 Reported Lasix (Furosemide) 40 Mg Tab 40 Mg PO DAILY 05/21/16 Reported Terazosin (Terazosin HCl) 5 Mg Cap 5 Mg PO HS 05/21/16 Reported Allopurinol 100 Mg Tab 200 Mg PO BID 05/21/16 Reported Family History Mother with hx of CAD/CVA Father had heart disease, stroke syndrom Social History No smoking, etoh. (Gretta Ron) Review of Systems Constitutional: COMPLAINS OF: Fatigue, Weight loss, Dizziness Respiratory: DENIES: Shortness of breath Cardiovascular: COMPLAINS OF: Syncope (near syncopal), DENIES: Chest pain Gastrointestinal: COMPLAINS OF: Black stools, Constipation, Diarrhea, DENIES: Abdominal pain, Bloody stools, Nausea, Vomiting ROS generalized weakness (Gretta Ron) GI Exam Vitals I&O Vital Signs Date Time Temp Pulse Resp B/P Pulse Ox O2 Delivery O2 Flow Rate FiO2 08/18/16 10:00 65 08/18/16 09:00 80 22 133/62 95 08/18/16 08:00 98.0 68 24 137/71 97 08/18/16 08:00 65 08/18/16 07:00 95 Nasal Cannula 1.50 08/18/16 07:00 98.0 61 24 155/95 96 08/18/16 07:00 95 Nasal Cannula 1.50 08/18/16 06:45 98.2 66 27 152/88 94 08/18/16 06:00 97.7 64 25 142/84 97 08/18/16 06:00 64 08/18/16 04:30 98.0 56 23 141/73 96 08/18/16 04:00 98.2 66 27 152/88 94 08/18/16 04:00 84 08/18/16 02:00 86 08/18/16 01:00 84 08/18/16 00:45 98.2 74 21 154/84 97 08/18/16 00:13 62 20 123/67 94 08/17/16 23:18 97.6 64 14 126/63 97 Nasal Cannula 1.5 08/17/16 23:00 64 18 158/63 96 Nasal Cannula 1.5 08/17/16 22:00 68 18 167/81 98 08/17/16 21:24 97.6 67 16 167/81 98 Nasal Cannula 1.5 08/17/16 21:08 97.0 59 16 149/80 97 Nasal Cannula 1.5 08/17/16 21:00 59 16 149/80 95 Nasal Cannula 1.5 08/17/16 20:06 45 14 118/62 92 Nasal Cannula 2 08/17/16 19:00 55 16 123/71 94 Nasal Cannula 1.5 08/17/16 18:00 68 16 115/69 94 Nasal Cannula 2 08/17/16 18:00 96 Nasal Cannula 2.00 08/17/16 17:45 82 18 100/52 98 Room Air 08/17/16 17:35 16 98 Room Air 08/17/16 17:29 77 16 98 Room Air 08/17/16 17:24 98.0 74 16 107/63 98 I/O 08/17/16 08/17/16 08/17/16 08/18/16 08/18/16 08/18/16 07:00 15:00 23:00 07:00 15:00 23:00 Intake Total 2140 ml 50 ml Output Total 300 ml 180 ml Balance 1840 ml -130 ml Intake Oral 20 ml 50 ml IV Total 1120 ml Packed Cells 750 ml Other 250 ml Output Urine Total 300 ml 180 ml # Voids 2 # Bowel Movements 1 0 Imaging Last Impressions Chest X-Ray 08/18/16 0000 Signed Impressions: Service Date/Time: Thursday, August 18, 2016 09:00 - CONCLUSION: 1. Developing bibasilar effusions with concomitant atelectatic changes. 2. In addition, there is prominent interstitial markings with cardiomegaly. Spectrum of findings are characteristic of some degree of CHF which has progressed from the prior exam. Darryl Miles MD Head CT 08/17/16 1726 Signed Impressions: Service Date/Time: Wednesday, August 17, 2016 17:39 - CONCLUSION: 1. Moderate severity central and cortical atrophy. No acute findings in the brain. 2. Right maxillary sinus disease with heterogeneous density and expansion of the medial wall. Probable mucocele. Augustus Stauffer MD Laboratory Test 08/17/16 08/17/16 08/17/16 08/17/16 17:45 19:05 20:10 23:42 White Blood Count 6.7 TH/MM3 Red Blood Count 2.51 MIL/MM3 Hemoglobin 7.4 GM/DL 7.6 GM/DL Hematocrit 23.6 % 22.7 % Mean Corpuscular Volume 94.1 FL Mean Corpuscular Hemoglobin 29.5 PG Mean Corpuscular Hemoglobin 31.4 % Concent Red Cell Distribution Width 18.5 % Platelet Count 168 TH/MM3 Mean Platelet Volume 10.1 FL Neutrophils (%) (Auto) 86.0 % Lymphocytes (%) (Auto) 6.1 % Monocytes (%) (Auto) 6.3 % Eosinophils (%) (Auto) 1.2 % Basophils (%) (Auto) 0.4 % Neutrophils # (Auto) 5.8 TH/MM3 Lymphocytes # (Auto) 0.4 TH/MM3 Monocytes # (Auto) 0.4 TH/MM3 Eosinophils # (Auto) 0.1 TH/MM3 Basophils # (Auto) 0.0 TH/MM3 CBC Comment DIFF FINAL Differential Comment Prothrombin Time 14.0 SEC Prothromb Time International 1.3 RATIO Ratio Activated Partial 28.2 SEC Thromboplast Time Sodium Level 137 MEQ/L Potassium Level 3.8 MEQ/L Chloride Level 98 MEQ/L Carbon Dioxide Level 24.6 MEQ/L Anion Gap 14 MEQ/L Blood Urea Nitrogen 47 MG/DL Creatinine 2.65 MG/DL Estimat Glomerular Filtration 24 ML/MIN Rate Random Glucose 229 MG/DL Calcium Level 8.9 MG/DL Total Bilirubin 1.3 MG/DL Aspartate Amino Transf 44 U/L (AST/SGOT) Alanine Aminotransferase 17 U/L (ALT/SGPT) Alkaline Phosphatase 236 U/L Troponin I 2.45 NG/ML B-Type Natriuretic Peptide 2528 PG/ML Total Protein 6.4 GM/DL Albumin 3.0 GM/DL Blood Type A POSITIVE Antibody Screen NEGATIVE Crossmatch Leukocyte-Reduced Red Blood Cells Blood Bank Comment Urine Color YELLOW Urine Turbidity HAZY Urine pH 5.5 Urine Specific [place] 1.016 Urine Protein 100 mg/dL Urine Glucose (UA) NEG mg/dL Urine Ketones NEG mg/dL Urine Occult Blood NEG Urine Nitrite NEG Urine Bilirubin NEG Urine Urobilinogen 2.0 MG/DL Urine Leukocyte Esterase NEG Urine WBC 2 /hpf Urine Squamous Epithelial <1 /hpf Cells Urine Hyaline Casts 18 /lpf Urine Mucus FEW /lpf Microscopic Urinalysis Comment CULT NOT INDICATED Test 08/17/16 08/18/16 08/18/16 08/18/16 23:43 00:52 01:01 04:25 Troponin I 2.64 NG/ML 2.67 NG/ML Nasal Screen MRSA (PCR) MRSA NOT DETECTED Blood Type A POSITIVE Crossmatch Leukocyte-Reduced Red Blood Cells Blood Bank Comment Prothrombin Time 13.3 SEC Prothromb Time International 1.2 RATIO Ratio Sodium Level 138 MEQ/L Potassium Level 3.7 MEQ/L Chloride Level 102 MEQ/L Carbon Dioxide Level 24.1 MEQ/L Anion Gap 12 MEQ/L Blood Urea Nitrogen 47 MG/DL Creatinine 2.41 MG/DL Estimat Glomerular Filtration 26 ML/MIN Rate Random Glucose 181 MG/DL Lactic Acid Level 1.4 mmol/L Calcium Level 8.8 MG/DL Phosphorus Level 4.8 MG/DL Magnesium Level 1.9 MG/DL Total Bilirubin 1.7 MG/DL Aspartate Amino Transf 40 U/L (AST/SGOT) Alanine Aminotransferase 17 U/L (ALT/SGPT) Alkaline Phosphatase 208 U/L Total Protein 6.0 GM/DL Albumin 2.9 GM/DL Test 08/18/16 09:12 White Blood Count 6.2 TH/MM3 Red Blood Count 3.29 MIL/MM3 Hemoglobin 9.8 GM/DL Hematocrit 29.4 % Mean Corpuscular Volume 89.5 FL Mean Corpuscular Hemoglobin 29.9 PG Mean Corpuscular Hemoglobin 33.4 % Concent Red Cell Distribution Width 18.3 % Platelet Count 159 TH/MM3 Mean Platelet Volume 9.9 FL Neutrophils (%) (Auto) 81.9 % Lymphocytes (%) (Auto) 9.0 % Monocytes (%) (Auto) 7.4 % Eosinophils (%) (Auto) 0.9 % Basophils (%) (Auto) 0.8 % Neutrophils # (Auto) 5.1 TH/MM3 Lymphocytes # (Auto) 0.6 TH/MM3 Monocytes # (Auto) 0.5 TH/MM3 Eosinophils # (Auto) 0.1 TH/MM3 Basophils # (Auto) 0.1 TH/MM3 CBC Comment DIFF FINAL Differential Comment Physical Examination HEENT: Normocephalic; atraumatic; no jaundice. CHEST: CTA CARDIAC: RRR ABDOMEN: Soft, nondistended, nontender; no hepatosplenomegaly; bowel sounds are present in all four quadrants. EXTREMITIES: No clubbing, cyanosis, or edema. SKIN: Normal; no rash; no jaundice. EVENT DECORATOR AND DESIGNER: No focal deficits; alert and oriented times three. (Gretta Ron) Assessment and Plan Plan ASSESSMENT: - GIB, Dark stool. Pt with hx of colon cancer, s/p resection in 2008- no adjuvant therapy. Last EGD/colonoscopy (05/16/16)----> large friable nodules in the antrum, EGD was otherwise normal, severe gastritis, retroflex views revealed no abnormalities; mild diverticulosis was noted in the left colon, and anatomy consistent with right hemicolectomy, retroflex views revealed no abnormalities, digital rectal exam was performed and revealed no abnormalities of the anus. 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 Of note, the patient reports that he was taking Aleve up until recently for chronic arthritic pain. - Anemia. S/P 3 units. 9.8/29.4. - Near syncopal episode, likely related to above. - CHF/NSTEMI/Elevated Troponin. He was evaluated by cardiology and according to their note from earlier today, he was noted to have small vessel coronary artery disease on cardiac catheterization in 2006 (not amenable to intervention) and SPECT last month showed large infarct without ischemia. They feel that his troponin elevation could be possibly related to his recent ablation and that they will likely recommend medical management. They would like him back on anticoagulation once cleared by GI. Cardiology has cleared the patient for endoscopy. - PAfib. S/P Ablation- was started on Eliquis- on hold secondary to GI bleeding. - JUNIE on chronic disease. Has RCC, S/P Cryotherapy- mass larger after treatment - plan to repeat imaging in 6 months. 2.41. - Hypertension, CAD, Coronary artery disease, Depression, Anxiety, Hyperlipidemia, OA, Rheumatoid arthritis, RLS per primary PLAN: - Plan for egd today - Obtain consents - NPO - Protonix Gtt - Monitor hh - transfuse as necessary - Supportive care - Further recommendations to follow based on results of above - Pt seen and examined by Dr. Monk and myself and this note is written on his behalf (Gretta Ron) Physician Comments Patient seen and examined yesterday prior to EGD Agree with above Continue with current supportive care Monitor labs EGD (Wicho Monk MD) Gretta Ron Aug 18, 2016 11:06 Wicho Monk MD Aug 19, 2016 21:16
[2016-08-18] MEDS: hydrALAZINE HCL 50 MG TAB PO SCH ×2 (13:48→20:53)
--- NOTE | 2016-08-18 16:33 | PD.PROCEDR ---
GI Procedure REFERRING PHYSICIAN Dr. Mishra PROCEDURE PERFORMED EGD with biopsy INDICATION FOR PROCEDURE Anemia and dark stools PROCEDURE: The procedure, risks and benefits were discussed with Mr. Ellison and informed consent was obtained. Anesthesia sedated him with Diprivan. He was placed in the left lateral decubitus position. EGD: The Pentax videoscope was introduced through the oropharynx and advanced to the second portion of the duodenum under direct visualization. Retroflexion was performed in the stomach. FINDINGS: The esophagus this was normal The stomach there was some punctate erythema in the antrum but no ulcerations or erosions no blood or bleeding the rest of the gastric mucosa was unremarkable antral biopsies were taken for further evaluation The duodenum this was normal ESTIMATED BLOOD LOSS: None SPECIMENS REMOVED: Antral biopsy COMPLICATIONS: None IMPRESSION: Gastritis Otherwise normal EGD PLAN: Await biopsy Continue current supportive care Monitor labs and transfuse as needed Recommend outpatient capsule endoscopy once patient is discharged Wicho Monk MD Aug 18, 2016 16:33
--- NOTE | 2016-08-18 17:48 | EKG ---
Date Performed: 08/18/2016 Time Performed: 07:36:18 PTAGE: 75 years EKG: ATRIAL FLUTTER/TACHYCARDIA WITH ABERRANT CONDUCTION OR VENTRICULAR PREMATURE COMPLEXES ST D EVIATION AND MODERATE T-WAVE ABNORMALITY, CONSIDER ANTERIOR ISCHEMIA ABNORMAL ECG Patient is now in a trial flutter PREVIOUS TRACING : 08/18/2016 02.25 DOCTOR: Juan M Herron Interpretating Date/Time 08/18/2016 17:46:59
--- NOTE | 2016-08-18 17:48 | EKG ---
Date Performed: 08/17/2016 Time Performed: 23:49:34 PTAGE: 75 years EKG: ATRIAL FLUTTER/TACHYCARDIA ST DEVIATION AND MODERATE T-WAVE ABNORMALITY, CONSIDER ANTERIOR ISCHEMIA ABNORMAL ECG Patient is now in atrial flutter PREVIOUS TRACING : 08/17/2016 17.26 DOCTOR: Juan M Herron Interpretating Date/Time 08/18/2016 17:46:34
--- NOTE | 2016-08-18 17:48 | EKG ---
Date Performed: 08/17/2016 Time Performed: 17:26:06 PTAGE: 75 years EKG: ATRIAL FLUTTER/TACHYCARDIA WITH SLOW VENTRICULAR RESPONSE ST DEVIATION AND MODERATE T-WAVE ABNORMALITY, CONSIDER ANTERIOR ISCHEMIA ABNORMAL ECG Patient is now in atrial flutter PREVIOUS TRACING : 07/23/2016 05.46 DOCTOR: Juan M Herron Interpretating Date/Time 08/18/2016 17:46:23
--- NOTE | 2016-08-18 17:48 | EKG ---
Date Performed: 08/18/2016 Time Performed: 02:25:40 PTAGE: 75 years EKG: Atrial flutter Extensive ST-T changes may be due to myocardial ischemia Patient is now in a trial flutter Abnormal ECG PREVIOUS TRACING : 08/17/2016 23.49 DOCTOR: Juan M Herron Interpretating Date/Time 08/18/2016 17:46:47
[2016-08-18] MEDS: TERAZOSIN HCL 5 MG CAP PO SCH (20:53)
[2016-08-19] VITALS (13 sets, daily range): BP systolic 132–161; BP diastolic 58–82; PULSE 62–78; RESP 16–30; TEMP 97.7–98.6; O2SAT 93–98
[2016-08-19] MEDS: TEMAZEPAM 15 MG CAP PO PRN ×2 (00:49→20:32)
[2016-08-19] MEDS: PANTOPRAZOLE INJ 80 MG in SODIUM CHLORIDE 0.9% INJ 100 ML IV SCH (01:04)
[2016-08-19] MEDS: CHLORHEXIDINE GLUCONATE 2 % 1 PACK (2 CLOTHS) TOP SCH (01:04)
[2016-08-19 04:09] LABS: AUTOMATED NEUTROPHIL # 7.2 TH/MM3 (1.8-7.7); BASOPHIL % 0.2 % (0.0-2.0); EOSINOPHIL # 0.1 TH/MM3 (0-0.4); EOSINOPHIL % 0.7 % (0.0-4.0); HEMO FLAGS DIFF FINAL; LYMPH % 2.6 % (9.0-44.0); LYMPHOCYTE # 0.2 TH/MM3 (1.0-4.8); MEAN CELL VOLUME 90.4 FL (80.0-100.0); MEAN CORPUSCULAR HEMOGLOBIN 29.2 PG (27.0-34.0); MEAN CORPUSCULAR HGB CONC 32.3 % (32.0-36.0); NEUT % 90.5 % (16.0-70.0); PLATELET COUNT 153 TH/MM3 (150-450); RED BLOOD COUNT 3.32 MIL/MM3 (4.50-5.90); RED CELL DISTRIBUTION WIDTH 18.4 % (11.6-17.2); WHITE BLOOD COUNT 7.9 TH/MM3 (4.0-11.0)
[2016-08-19 04:45] LABS: ALT (GPT) 14 U/L (12-78); ANION GAP 9 MEQ/L (5-15); AST (GOT) 30 U/L (15-37); BICARBONATE 25.6 MEQ/L (21.0-32.0); BLOOD UREA NITROGEN 39 MG/DL (7-18); CHLORIDE 104 MEQ/L (98-107); GLOMERULAR FILTRATION RATE 32 ML/MIN (>89); MAGNESIUM 1.9 MG/DL (1.5-2.5); POTASSIUM 3.2 MEQ/L (3.5-5.1); SODIUM (NA) 139 MEQ/L (136-145)
[2016-08-19 04:47] LABS: ALKALINE PHOSPHATASE 203 U/L (45-117); TOTAL BILIRUBIN ADULT 1.6 MG/DL (0.2-1.0)
[2016-08-19] MEDS: hydrALAZINE HCL 50 MG TAB PO SCH ×3 (06:46→20:23)
[2016-08-19] MEDS: INSULIN ASPART SUPPLEMENTAL SCALE SQ SCH ×4 (06:47→20:23)
--- NOTE | 2016-08-19 07:44 | PD.CARD.PN ---
Subjective Subjective Remarks denies chest pain or shortness of breath (Jose Manuel Arnold) Objective Vital Signs / I&O Vital Signs Date Time Temp Pulse Resp B/P Pulse Ox O2 Delivery O2 Flow Rate FiO2 08/19/16 06:00 76 08/19/16 04:00 98.2 64 20 135/70 97 08/19/16 04:00 64 08/19/16 02:00 68 08/19/16 00:00 98.6 70 20 141/70 97 08/19/16 00:00 70 08/18/16 22:00 70 08/18/16 20:00 64 08/18/16 20:00 94 Nasal Cannula 1.50 08/18/16 20:00 98.0 64 22 153/76 98 08/18/16 18:00 65 08/18/16 16:00 68 08/18/16 16:00 98.0 68 24 151/78 95 08/18/16 14:00 66 08/18/16 13:00 98.2 59 24 148/70 94 08/18/16 12:00 73 08/18/16 10:00 65 08/18/16 09:00 80 22 133/62 95 08/18/16 08:00 98.0 68 24 137/71 97 08/18/16 08:00 65 I/O 08/18/16 08/18/16 08/18/16 08/19/16 08/19/16 08/19/16 07:00 15:00 23:00 07:00 15:00 23:00 Intake Total 2140 ml 180 ml 144 ml 318 ml Output Total 300 ml 705 ml 400 ml 150 ml Balance 1840 ml -525 ml -256 ml 168 ml Intake Oral 20 ml 100 ml 80 ml 220 ml IV Total 1120 ml 80 ml 64 ml 98 ml Packed Cells 750 ml Other 250 ml Output Urine Total 300 ml 705 ml 400 ml 150 ml # Voids 2 # Bowel Movements 0 2 0 0 Physical Exam GENERAL: Well-nourished, well-developed patient in no apparent distress. NECK: No JVD. No carotid bruit. CARDIOVASCULAR: Regular rate and rhythm. S1/S2 no murmur, rub, or gallop. RESPIRATORY: No accessory muscle use. rales bilateral bases to auscultation. Breath sounds equal bilaterally. GASTROINTESTINAL: Abdomen soft, non-tender, nondistended. MUSCULOSKELETAL: Extremities without clubbing, cyanosis, or edema. Laboratory Laboratory Tests Test 08/18/16 08/19/16 09:12 03:34 White Blood Count 6.2 TH/MM3 7.9 TH/MM3 Red Blood Count 3.29 MIL/MM3 3.32 MIL/MM3 Hemoglobin 9.8 GM/DL 9.7 GM/DL Hematocrit 29.4 % 30.0 % Mean Corpuscular Volume 89.5 FL 90.4 FL Mean Corpuscular Hemoglobin 29.9 PG 29.2 PG Mean Corpuscular Hemoglobin 33.4 % 32.3 % Concent Red Cell Distribution Width 18.3 % 18.4 % Platelet Count 159 TH/MM3 153 TH/MM3 Mean Platelet Volume 9.9 FL 10.1 FL Neutrophils (%) (Auto) 81.9 % 90.5 % Lymphocytes (%) (Auto) 9.0 % 2.6 % Monocytes (%) (Auto) 7.4 % 6.0 % Eosinophils (%) (Auto) 0.9 % 0.7 % Basophils (%) (Auto) 0.8 % 0.2 % Neutrophils # (Auto) 5.1 TH/MM3 7.2 TH/MM3 Lymphocytes # (Auto) 0.6 TH/MM3 0.2 TH/MM3 Monocytes # (Auto) 0.5 TH/MM3 0.5 TH/MM3 Eosinophils # (Auto) 0.1 TH/MM3 0.1 TH/MM3 Basophils # (Auto) 0.1 TH/MM3 0.0 TH/MM3 CBC Comment DIFF FINAL DIFF FINAL Differential Comment Sodium Level 139 MEQ/L Potassium Level 3.2 MEQ/L Chloride Level 104 MEQ/L Carbon Dioxide Level 25.6 MEQ/L Anion Gap 9 MEQ/L Blood Urea Nitrogen 39 MG/DL Creatinine 2.03 MG/DL Estimat Glomerular Filtration 32 ML/MIN Rate Random Glucose 166 MG/DL Calcium Level 8.2 MG/DL Magnesium Level 1.9 MG/DL Total Bilirubin 1.6 MG/DL Aspartate Amino Transf 30 U/L (AST/SGOT) Alanine Aminotransferase 14 U/L (ALT/SGPT) Alkaline Phosphatase 203 U/L Total Protein 5.8 GM/DL Albumin 2.8 GM/DL (Jose Manuel Arnold) Assessment and Plan Problem List: (1) CAD (coronary artery disease) (2) Tachy-cristela syndrome (3) HTN (hypertension) (4) CHF (congestive heart failure) Assessment and Plan presyncope - unclear etiology. anemia on anticoagulation. ? BP drop. 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 Follow tele. May need intermediate teacher monitor, ie event monitor or loop recorder, to determine if symptoms HR related. CHF - EF by SPECT 21%, by echo 45%. clinical signs of fluid overload. avoid over diuresis. NSTEMI - small vessel CAD cath 2006. SPECT last month showed large infarct without ischemia. s/p recent ablation which can also elevate his troponin. Likely proceed with med mgt only. no need to repeat SPECT and prior LHC suggested disease not amendable to intervention. With Cr elevated, also another reason not to proceed with invasive strategy. anemia - on anticoagulation at home. CHADS-VASC = 6. still having intermittent afib. should be back on anticoagulation when cleared by GI. ARF on CRI - Cr now 2.03 probably pre-renal. no ACEi. continue to monitor I/ O and Cr trend. HTN controlled (Jose Manuel Arnold) Assessment and Plan Lasix dose was increased monitor Cr. need to discuss plan for asa and/or anticoagulation strategy for afib. s/p 3 units PRBC. although CHADS-VASC score is high, I am reluctant to restart anticoagulation until GI workup is complete (even if completed as an outpatient) . we can discuss aspirin with GI, given his gastritis. (Brooks Lance MD) Jose Manuel Arnold Aug 19, 2016 07:44 Brooks Lance MD Aug 19, 2016 16:31
--- NOTE | 2016-08-19 07:47 | PD.TRANSFR ---
Transfer Summary Admission Date Aug 17, 2016 at 19:35 Admitting Diagnosis NSTEMI, GI bleed Diagnoses: (1) GI bleed Diagnosis: Principal (2) Anemia Diagnosis: Principal (3) CHF (congestive heart failure) Diagnosis: Principal (4) Tachy-cristela syndrome Diagnosis: Principal (5) Acute systolic CHF (congestive heart failure) Diagnosis: Principal (6) Acute kidney injury Diagnosis: Principal (7) Afib Diagnosis: Secondary (8) HTN (hypertension) Diagnosis: Secondary (9) CAD (coronary artery disease) Diagnosis: Secondary Transfer Summary/Subjective 75-year-old male comes in after a near-syncopal episode. He recently underwent an ablation for atrial fibrillation and was placed on Eliquis after procedure . He was feeling well today and was sitting with his legs up in his recliner due to swelling. He says he tried to get up and go to the bathroom when he suddenly felt very weak near to pass out. His helped him get to the ground. He defecated on himself. He denies losing consciousness. He has been feeling short of breath, and had pain to his upper left chest and his left arm. He says the pain to his left chest started earlier today and he tried resting in bed to make it better. He denies fever or chills. He denies nausea or vomiting. 08/18/16-Lying in bed no acute distress. Denies chest pain. Chest x-ray shows pulmonary edema BNP is 2528. Troponin peaked at 2.67. Echo 07/21/16 EF 40-45%. No active bleeding reported 08/19: EGD 08/18/16 showed gastritis. Gi Recommended outpatient capsule endoscopy once patient is discharged. Hemoglobin stable at 9.7. CXR shows some interval worsening of CHF. UO 1.25L in 24 hours. Will increase Lasix to 40q12. Objective Vital Signs Date Time Temp Pulse Resp B/P Pulse Ox O2 Delivery O2 Flow Rate FiO2 08/19/16 06:00 76 08/19/16 04:00 98.2 20 135/70 97 08/18/16 20:00 Nasal Cannula 1.50 Intake and Output 08/18/16 08/18/16 08/19/16 08:00 16:00 00:00 Intake Total 1890 ml 180 ml 144 ml Output Total 330 ml 675 ml 400 ml Balance 1560 ml -495 ml -256 ml Result Diagram: 08/19/16 0334 08/19/16 0334 Imaging Last [address] 08/17/161725 Signed Impressions: Service Date/Time: Wednesday, August 17, 2016 17:39 - CONCLUSION: 1. Moderate severity central and cortical atrophy. No acute findings in the brain. 2. Right maxillary sinus disease with heterogeneous density and expansion of the medial wall. Probable mucocele. Augustus Stauffer MD Chest X-Ray 08/17/161725 Signed Impressions: Service Date/Time: Wednesday, August 17, 2016 17:45 - CONCLUSION: Interval resolution of consolidation left lower lobe and new areas of patchy infiltrate in the central lungs bilaterally. Augustus Stauffer MD Objective Remarks GENERAL: Well-nourished, well-developed patient elderly man, no distress SKIN: Warm and dry. HEAD: Normocephalic. EYES: No scleral icterus. No injection or drainage. NECK: Supple, trachea midline. No JVD or lymphadenopathy. CARDIOVASCULAR: Regular rate and rhythm without murmurs, gallops, or rubs. RESPIRATORY: Breath sounds equal bilaterally, diminished. No accessory muscle use. GASTROINTESTINAL: Abdomen soft, non-tender, nondistended. MUSCULOSKELETAL: No cyanosis, or edema. BACK: Nontender without obvious deformity. No CVA tenderness. EXTREMITIES: No clubbing cyanosis or edema A/P Assessment and Plan Near syncope - Due to severe anemia - R/O tachybrady syndrome per Dr. Lance - Treated underlying anemia GI bleed - Holding Eliquis - Gastroenterology Dr. Monk performed EGD-showed gastritis - Protonix gtt-change to protonix 40 mg IV q12 - Advance diet per GI CHF/NSTEMI - Cardiology Dr. Lance - Continue IV Lasix 20 q12, increase to 40 q12 - Holding Eliquis due to GIB - Aspirin when cleared by GI Diabetes - Hold home by mouth meds while in the ICU - Insulin sliding scale Hypertension - Hold all by mouth meds due to GI bleed and risk of hypertension - Resume when stable Coagulopathy - Due to Eliquis - Supportive care Acute kidney injury - Monitor urine output - Avoid nephrotoxins - Careful diuresis due to CHF-Creat improving - Monitor electrolytes and creatinine DVT GI prophylaxis - Teds SCDs - No pharmacological prophylaxis due to active GI bleed - Protonix IV 40 q12 Critical Care: Level 2 Consult hospitalist to assume care in tavo.Daphnie Blas MD Aug 19, 2016 07:47
[2016-08-19] MEDS ORDERED: POTASSIUM CHLORIDE 25 MEQ EFFERVESCENT TAB PO ONE (08:00)
--- NOTE | 2016-08-19 08:21 | HHI.GIFU ---
Subjective Remarks Resting in bed. No active bleeding. Tolerating liquids. Denies nausea/ vomiting/abdominal pain. (Gretta Ron) Objective Vitals I&O Vital Signs Date Time Temp Pulse Resp B/P Pulse Ox O2 Delivery O2 Flow Rate FiO2 08/19/16 06:00 76 08/19/16 04:00 98.2 64 20 135/70 97 08/19/16 04:00 64 08/19/16 02:00 68 08/19/16 00:00 98.6 70 20 141/70 97 08/19/16 00:00 70 08/18/16 22:00 70 08/18/16 20:00 94 Nasal Cannula 1.50 08/18/16 20:00 64 08/18/16 20:00 94 Nasal Cannula 1.50 08/18/16 20:00 98.0 64 22 153/76 98 08/18/16 18:00 65 08/18/16 16:00 68 08/18/16 16:00 98.0 68 24 151/78 95 08/18/16 14:00 66 08/18/16 13:00 98.2 59 24 148/70 94 08/18/16 12:00 73 08/18/16 10:00 65 08/18/16 09:00 80 22 133/62 95 I/O 08/18/16 08/18/16 08/18/16 08/19/16 08/19/16 08/19/16 07:00 15:00 23:00 07:00 15:00 23:00 Intake Total 2140 ml 180 ml 144 ml 318 ml Output Total 300 ml 705 ml 400 ml 150 ml Balance 1840 ml -525 ml -256 ml 168 ml Intake Oral 20 ml 100 ml 80 ml 220 ml IV Total 1120 ml 80 ml 64 ml 98 ml Packed Cells 750 ml Other 250 ml Output Urine Total 300 ml 705 ml 400 ml 150 ml # Voids 2 # Bowel Movements 0 2 0 0 Laboratory Laboratory Tests Test 08/18/16 08/19/16 09:12 03:34 White Blood Count 6.2 7.9 Red Blood Count 3.29 3.32 Hemoglobin 9.8 9.7 Hematocrit 29.4 30.0 Mean Corpuscular Volume 89.5 90.4 Mean Corpuscular Hemoglobin 29.9 29.2 Mean Corpuscular Hemoglobin 33.4 32.3 Concent Red Cell Distribution Width 18.3 18.4 Platelet Count 159 153 Mean Platelet Volume 9.9 10.1 Neutrophils (%) (Auto) 81.9 90.5 Lymphocytes (%) (Auto) 9.0 2.6 Monocytes (%) (Auto) 7.4 6.0 Eosinophils (%) (Auto) 0.9 0.7 Basophils (%) (Auto) 0.8 0.2 Neutrophils # (Auto) 5.1 7.2 Lymphocytes # (Auto) 0.6 0.2 Monocytes # (Auto) 0.5 0.5 Eosinophils # (Auto) 0.1 0.1 Basophils # (Auto) 0.1 0.0 CBC Comment DIFF FINAL DIFF FINAL Differential Comment Sodium Level 139 Potassium Level 3.2 Chloride Level 104 Carbon Dioxide Level 25.6 Anion Gap 9 Blood Urea Nitrogen 39 Creatinine 2.03 Estimat Glomerular Filtration 32 Rate Random Glucose 166 Calcium Level 8.2 Magnesium Level 1.9 Total Bilirubin 1.6 Aspartate Amino Transf 30 (AST/SGOT) Alanine Aminotransferase 14 (ALT/SGPT) Alkaline Phosphatase 203 Total Protein 5.8 Albumin 2.8 Imaging Last Impressions Chest X-Ray 08/18/16 0000 Signed Impressions: Service Date/Time: Thursday, August 18, 2016 09:00 - CONCLUSION: 1. Developing bibasilar effusions with concomitant atelectatic changes. 2. In addition, there is prominent interstitial markings with cardiomegaly. Spectrum of findings are characteristic of some degree of CHF which has progressed from the prior exam. Darryl Miles MD Head CT 08/17/16 1726 Signed Impressions: Service Date/Time: Wednesday, August 17, 2016 17:39 - CONCLUSION: 1. Moderate severity central and cortical atrophy. No acute findings in the brain. 2. Right maxillary sinus disease with heterogeneous density and expansion of the medial wall. Probable mucocele. Augustus Stauffer MD Physical Exam HEENT: Normocephalic; atraumatic; no jaundice. CHEST: CTA CARDIAC: RRR ABDOMEN: Soft, nondistended, nontender; no hepatosplenomegaly; bowel sounds are present in all four quadrants. EXTREMITIES: No clubbing, cyanosis, or edema. SKIN: Normal; no rash; no jaundice. PRACTICAL NURSING FACULTY: No focal deficits; alert and oriented times three. (Gretta Ron FLEET MANAGER/DISPATCH) Assessment and Plan Plan ASSESSMENT: - GIB, Dark stool. Pt with hx of colon cancer, s/p resection in 2008- no adjuvant therapy. Last EGD/colonoscopy (05/16/16)----> large friable nodules in the antrum, EGD was otherwise normal, severe gastritis, retroflex views revealed no abnormalities; mild diverticulosis was noted in the left colon, and anatomy consistent with right hemicolectomy, retroflex views revealed no abnormalities, digital rectal exam was performed and revealed no abnormalities of the anus. 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 Of note, the patient reports that he was taking Aleve up until recently for chronic arthritic pain. S/P EGD (08/18/16)-----> Gastritis, otherwise normal EGD. Pathology pending. Plan for capsule endoscopy as outpatient. S /P 3 units of PRBC. HH 9.7/30.0. Okay to switch Protonix to bid dosing. - Anemia. S/P 3 units of PRBC. HH 9.7/30.0. - Near syncopal episode, likely related to above. - CHF/NSTEMI/Elevated Troponin. He was evaluated by cardiology and according to their note from earlier today, he was noted to have small vessel coronary artery disease on cardiac catheterization in 2006 (not amenable to intervention) and SPECT last month showed large infarct without ischemia. They feel that his troponin elevation could be possibly related to his recent ablation and that they will likely recommend medical management. They would like him back on anticoagulation once cleared by GI. Cardiology has cleared the patient for endoscopy. - PAfib. S/P Ablation- was started on Eliquis- on hold secondary to GI bleeding. - JUNIE on chronic disease. Has RCC, S/P Cryotherapy- mass larger after treatment - plan to repeat imaging in 6 months. 2.41. - Hypertension, CAD, Coronary artery disease, Depression, Anxiety, Hyperlipidemia, OA, Rheumatoid arthritis, RLS per primary PLAN: - Okay to transfer to floor from GI standpoint - Heart healthy diet - D/C Protonix Gtt - Protonix 40mg IV BID - Monitor HH - Transfuse as necessary - Supportive care - Capsule endoscopy as outpatient - Further recommendations to follow based on results of above - Pt seen and examined by Dr. Monk and myself and this note is written on his behalf (Gretta Ron) Physician Comments Patient seen and examined Agree with above Continue with current supportive care Monitor labs Patient to follow-up with GI post discharge Transfuse as needed Not much to add at this point from a GI perspective therefore we will sign off but please reconsult as needed or if actively bleeding (Wicho Monk MD) Gretta Ron Aug 19, 2016 08:21 Wicho Monk MD Aug 19, 2016 21:19
[2016-08-19] MEDS: ALPRAZolam 0.25 MG TAB PO SCH ×2 (09:00→20:23)
[2016-08-19] MEDS: PANTOPRAZOLE SODIUM 40 MG VIAL IV PUSH SCH ×2 (09:09→20:22)
[2016-08-19] MEDS: SODIUM CHLORIDE 0.9% FLUSH 10 ML FLUSH SCH ×2 (09:10→20:22)
[2016-08-19] MEDS: FUROSEMIDE 40 MG/4 ML VIAL IV PUSH SCH ×2 (09:11→17:18)
[2016-08-19] MEDS: AMIODARONE 200 MG TAB PO SCH (09:12)
[2016-08-19] MEDS: TERAZOSIN HCL 5 MG CAP PO SCH (20:23)
[2016-08-20] VITALS (19 sets, daily range): BP systolic 135–163; BP diastolic 58–93; PULSE 58–91; RESP 16; TEMP 97.7–98.2; O2SAT 92–96
--- NOTE | 2016-08-20 03:53 | RADRPT ---
EXAM DATE/TIME: 08/20/2016 02:53 [facility] COMPARISON: CHEST SINGLE AP, August 18, 2016, 9:00. INDICATIONS : Shortness of breath. MEDICAL HISTORY : None. SURGICAL HISTORY : None. ENCOUNTER: Initial ACUITY: 1 day PAIN SCORE: 0/10 LOCATION: Bilateral chest FINDINGS: There continues to be findings characteristic of pulmonary edema. The pulmonary edema is about the sa me compared to the prior exam. There continue to be some infiltrates in both lung bases which are sta ble. Heart size is enlarged but stable. Is no evidence of pneumothorax. The bony structures are stabl e. CONCLUSION: Pulmonary edema without significant change compared to the prior study. Alfredito Salcedo MD on August 20, 2016 at 3:51 Board Certified Radiologist. This report was verified electronically.
[2016-08-20] MEDS: CHLORHEXIDINE GLUCONATE 2 % 1 PACK (2 CLOTHS) TOP SCH (04:00)
[2016-08-20] MEDS: hydrALAZINE HCL 50 MG TAB PO SCH ×2 (06:00→13:22)
[2016-08-20 06:20] LABS: AUTOMATED NEUTROPHIL # 5.9 TH/MM3 (1.8-7.7); BASOPHIL % 0.2 % (0.0-2.0); EOSINOPHIL # 0.1 TH/MM3 (0-0.4); EOSINOPHIL % 1.9 % (0.0-4.0); HEMATOCRIT 29.2 % (39.0-51.0); HEMO FLAGS DIFF FINAL; LYMPH % 4.7 % (9.0-44.0); LYMPHOCYTE # 0.3 TH/MM3 (1.0-4.8); MEAN CELL VOLUME 90.2 FL (80.0-100.0); MEAN CORPUSCULAR HEMOGLOBIN 29.6 PG (27.0-34.0); MEAN CORPUSCULAR HGB CONC 32.8 % (32.0-36.0); NEUT % 86.2 % (16.0-70.0); PLATELET COUNT 160 TH/MM3 (150-450); RED BLOOD COUNT 3.24 MIL/MM3 (4.50-5.90); RED CELL DISTRIBUTION WIDTH 18.2 % (11.6-17.2); WHITE BLOOD COUNT 6.8 TH/MM3 (4.0-11.0)
[2016-08-20 07:03] LABS: ALT (GPT) 12 U/L (12-78); ANION GAP 9 MEQ/L (5-15); AST (GOT) 28 U/L (15-37); BLOOD UREA NITROGEN 34 MG/DL (7-18); CHLORIDE 103 MEQ/L (98-107); GLOMERULAR FILTRATION RATE 36 ML/MIN (>89); MAGNESIUM 1.9 MG/DL (1.5-2.5); POTASSIUM 3.4 MEQ/L (3.5-5.1); SODIUM (NA) 139 MEQ/L (136-145)
[2016-08-20 07:05] LABS: ALKALINE PHOSPHATASE 210 U/L (45-117); TOTAL BILIRUBIN ADULT 1.1 MG/DL (0.2-1.0)
--- NOTE | 2016-08-20 08:04 | PD.CARD.PN ---
Subjective Subjective Remarks patient reports improved energy; unable to sleep last night. Denies chest pain, SOB or palpitation (Kortney Simms) Objective Medications Current Medications Medications (Trade) Dose Ordered Sig/Fiordaliza Route Start Time Stop Time Status Last Admin (NS Flush) 2 ml UNSCH PRN .XX 08/17/16 19:45 (NS Flush) 2 ml BID .XX 08/17/16 21:00 08/19/16 20:22 (Tylenol) 650 mg Q6H PRN PO 08/17/16 19:45 (Morphine Inj) 2 mg Q2H PRN IV 08/17/16 19:45 (Zofran Inj) 4 mg Q6H PRN IV 08/17/16 19:45 (Reglan Inj) 10 mg Q6H PRN IV 08/17/16 19:45 Miscellaneous Information 1 Q361D XX 08/17/16 19:45 08/17/16 19:45 (Chlorhexidine 2% Cloth) 3 pack Taper DAILY@04 TOP 08/18/16 04:00 08/14/17 03:59 08/19/16 01:04 (Chlorhexidine 2% Cloth) 3 pack UNSCH PRN TOP 08/17/16 19:45 (Xanax) 0.25 mg BID PO 08/17/16 21:00 08/19/16 20:23 (Cordarone) 200 mg DAILY PO 08/17/16 20:00 08/19/16 09:12 (Percocet 5-325 Mg) 1 tab Q4H PRN PO 08/17/16 20:00 (Restoril) 15 mg HS PRN PO 08/17/16 20:00 08/19/16 20:32 (Hytrin) 5 mg HS PO 08/17/16 21:00 08/19/16 20:23 Non-Formulary Medication 1 drop Q4H PRN EACH EYE 08/17/16 20:00 (D50w (Vial) Inj) 25 ml UNSCH PRN IV PUSH 08/17/16 20:00 (Glucagon Inj) 1 mg UNSCH PRN OTHER 08/17/16 20:00 (Apresoline) 50 mg Q8HR PO 08/18/16 14:00 08/19/16 20:23 (Lasix Inj) 40 mg DAILY@18 IV PUSH 08/19/16 09:00 08/19/16 17:18 (Protonix Inj) 40 mg Q12H IV PUSH 08/19/16 08:00 08/19/16 20:22 Vital Signs / I&O Vital Signs Date Time Temp Pulse Resp B/P Pulse Ox O2 Delivery O2 Flow Rate FiO2 08/20/16 06:09 58 08/20/16 05:04 72 08/20/16 04:00 65 08/20/16 03:00 66 08/20/16 02:00 65 08/20/16 01:00 65 08/20/16 00:00 63 08/19/16 23:30 77 08/19/16 23:30 97.7 77 18 161/79 98 08/19/16 22:00 73 08/19/16 20:00 78 08/19/16 20:00 98.1 78 16 132/63 95 08/19/16 19:00 95 Nasal Cannula 2.00 08/19/16 18:00 66 08/19/16 16:00 98.4 66 22 138/66 93 08/19/16 16:00 66 08/19/16 14:00 67 08/19/16 12:00 97.9 62 30 132/58 97 08/19/16 12:00 67 08/19/16 10:00 67 08/19/16 09:00 95 Nasal Cannula 1.50 08/19/16 08:00 98.4 66 25 147/82 97 08/19/16 08:00 75 I/O 08/19/16 08/19/16 08/19/16 08/20/16 08/20/16 08/20/16 07:00 15:00 23:00 07:00 15:00 23:00 Intake Total 318 ml 600 ml 240 ml Output Total 150 ml 350 ml 980 ml Balance 168 ml 250 ml -740 ml Intake Oral 220 ml 600 ml 240 ml IV Total 98 ml 0 ml 0 ml Output Urine Total 150 ml 350 ml 980 ml # Bowel Movements 0 1 1 Physical Exam HEAD: Atraumatic. Normocephalic. EYES: Pupils equal and round. ENT: No nasal bleeding or discharge. NECK: Trachea midline. No JVD. CARDIOVASCULAR: Regular rate, irregularly irregular rhythm RESPIRATORY: No accessory muscle use. Diminished at bilateral bases GASTROINTESTINAL: Abdomen soft, non-tender, nondistended. MUSCULOSKELETAL: Extremities without clubbing, cyanosis, or edema. No obvious deformities. NEUROLOGICAL: Awake and alert. No obvious cranial nerve deficits. Normal speech. PSYCHIATRIC: Appropriate mood and affect; insight and judgment normal. Laboratory Laboratory Tests Test 08/20/16 05:35 White Blood Count 6.8 TH/MM3 Red Blood Count 3.24 MIL/MM3 Hemoglobin 9.6 GM/DL Hematocrit 29.2 % Mean Corpuscular Volume 90.2 FL Mean Corpuscular Hemoglobin 29.6 PG Mean Corpuscular Hemoglobin 32.8 % Concent Red Cell Distribution Width 18.2 % Platelet Count 160 TH/MM3 Mean Platelet Volume 10.4 FL Neutrophils (%) (Auto) 86.2 % Lymphocytes (%) (Auto) 4.7 % Monocytes (%) (Auto) 7.0 % Eosinophils (%) (Auto) 1.9 % Basophils (%) (Auto) 0.2 % Neutrophils # (Auto) 5.9 TH/MM3 Lymphocytes # (Auto) 0.3 TH/MM3 Monocytes # (Auto) 0.5 TH/MM3 Eosinophils # (Auto) 0.1 TH/MM3 Basophils # (Auto) 0.0 TH/MM3 CBC Comment DIFF FINAL Differential Comment Sodium Level 139 MEQ/L Potassium Level 3.4 MEQ/L Chloride Level 103 MEQ/L Carbon Dioxide Level 27.0 MEQ/L Anion Gap 9 MEQ/L Blood Urea Nitrogen 34 MG/DL Creatinine 1.84 MG/DL Estimat Glomerular Filtration 36 ML/MIN Rate Random Glucose 159 MG/DL Calcium Level 8.4 MG/DL Magnesium Level 1.9 MG/DL Total Bilirubin 1.1 MG/DL Aspartate Amino Transf 28 U/L (AST/SGOT) Alanine Aminotransferase 12 U/L (ALT/SGPT) Alkaline Phosphatase 210 U/L Total Protein 5.7 GM/DL Albumin 2.7 GM/DL Imaging Last Impressions Chest X-Ray 08/20/16 0600 Signed Impressions: Service Date/Time: Saturday, August 20, 2016 02:53 - CONCLUSION: Pulmonary edema without significant change compared to the prior study. Alfredito Salcedo MD Head CT 08/17/16 1726 Signed Impressions: Service Date/Time: Wednesday, August 17, 2016 17:39 - CONCLUSION: 1. Moderate severity central and cortical atrophy. No acute findings in the brain. 2. Right maxillary sinus disease with heterogeneous density and expansion of the medial wall. Probable mucocele. Augustus Stauffer MD (Kortney Simms) Assessment and Plan Problem List: (1) CAD (coronary artery disease) (2) Tachy-cristela syndrome (3) HTN (hypertension) (4) CHF (congestive heart failure) Assessment and Plan pre-syncope- consider outpatient event monitoring vs. loop recording. anemia- s/p 3 units PRBC, endoscopy revealed no concerning GI bleeds, + gastritis. Continues on PPI and will have outpatient capsule study CHF- cont diuresis, closely monitor creatinine and I's/O's afib- CHADS-Vasc=6, anticoagulation currently on hold. Will need to resume after cleared by GI. ARF- creatinine improving, no JILLIAN/ARBs. (Kortney Simms) Assessment and Plan no arrhythmias on tele no need for outpatient monitor unless recurrent symptoms. syncope secondary to anemia hold off on initiating anticoagulation again until after capsule endoscopy. [place] to accept increased stroke risk during that short time period. CHF - well compensated. convert to PO lasix. monitor Cr. nstemi - no CP symptoms. small vessel dz 2006 not amendable to intervention. med mgt. no JILLIAN due to Cr. Ok from cardio for DC. (Brooks Lance MD) Kortney Simms Aug 20, 2016 08:04 Boroks Lance MD Aug 20, 2016 16:49
[2016-08-20] MEDS: INSULIN ASPART SUPPLEMENTAL SCALE SQ SCH ×3 (08:42→16:53)
[2016-08-20] MEDS: FUROSEMIDE 40 MG/4 ML VIAL IV PUSH SCH (08:43)
[2016-08-20] MEDS: ALPRAZolam 0.25 MG TAB PO SCH (08:44)
[2016-08-20] MEDS: PANTOPRAZOLE SODIUM 40 MG VIAL IV PUSH SCH (08:44)
[2016-08-20] MEDS: SODIUM CHLORIDE 0.9% FLUSH 10 ML FLUSH SCH (08:44)
[2016-08-20] MEDS: AMIODARONE 200 MG TAB PO SCH (08:44)
[2016-08-20] MEDS ORDERED: POTASSIUM CHLORIDE 10 MEQ CONTROLLED RELEASE TAB PO ONE (13:00)
--- NOTE | 2016-08-20 16:28 | HHI.PR ---
Subjective Remarks Pt denies any chest pain, SOB Overall feeling better Objective Vitals Vital Signs Date Time Temp Pulse Resp B/P Pulse Ox O2 Delivery O2 Flow Rate FiO2 08/20/16 16:08 61 08/20/16 15:00 60 08/20/16 15:00 97.7 65 16 135/58 93 08/20/16 14:00 64 08/20/16 13:07 59 08/20/16 12:11 70 08/20/16 11:00 90 08/20/16 11:00 97.9 91 16 156/93 92 08/20/16 10:02 65 08/20/16 09:00 80 08/20/16 08:00 96 Room Air 08/20/16 08:00 74 08/20/16 08:00 98.2 85 16 163/81 96 08/20/16 07:00 69 08/20/16 06:09 58 08/20/16 05:04 72 08/20/16 04:00 65 08/20/16 03:00 66 08/20/16 02:00 65 08/20/16 01:00 65 08/20/16 00:00 63 08/19/16 23:30 77 08/19/16 23:30 97.7 77 18 161/79 98 08/19/16 22:00 73 08/19/16 20:00 78 08/19/16 20:00 98.1 78 16 132/63 95 08/19/16 19:00 95 Nasal Cannula 2.00 08/19/16 18:00 66 08/19/16 08/19/16 08/20/16 15:00 23:00 07:00 Intake Total 600 ml 240 ml Output Total 350 ml 980 ml Balance 250 ml -740 ml Intake Oral 600 ml 240 ml IV Total 0 ml 0 ml Output Urine Total 350 ml 980 ml # Bowel Movements 1 1 Result Diagram: 08/20/16 0535 08/20/16 0535 Other Results Laboratory Tests Test 08/19/16 08/20/16 03:34 05:35 White Blood Count 7.9 TH/MM3 6.8 TH/MM3 Red Blood Count 3.32 MIL/MM3 3.24 MIL/MM3 Hemoglobin 9.7 GM/DL 9.6 GM/DL Hematocrit 30.0 % 29.2 % Mean Corpuscular Volume 90.4 FL 90.2 FL Mean Corpuscular Hemoglobin 29.2 PG 29.6 PG Mean Corpuscular Hemoglobin 32.3 % 32.8 % Concent Red Cell Distribution Width 18.4 % 18.2 % Platelet Count 153 TH/MM3 160 TH/MM3 Mean Platelet Volume 10.1 FL 10.4 FL Neutrophils (%) (Auto) 90.5 % 86.2 % Lymphocytes (%) (Auto) 2.6 % 4.7 % Monocytes (%) (Auto) 6.0 % 7.0 % Eosinophils (%) (Auto) 0.7 % 1.9 % Basophils (%) (Auto) 0.2 % 0.2 % Neutrophils # (Auto) 7.2 TH/MM3 5.9 TH/MM3 Lymphocytes # (Auto) 0.2 TH/MM3 0.3 TH/MM3 Monocytes # (Auto) 0.5 TH/MM3 0.5 TH/MM3 Eosinophils # (Auto) 0.1 TH/MM3 0.1 TH/MM3 Basophils # (Auto) 0.0 TH/MM3 0.0 TH/MM3 CBC Comment DIFF FINAL DIFF FINAL Differential Comment Sodium Level 139 MEQ/L 139 MEQ/L Potassium Level 3.2 MEQ/L 3.4 MEQ/L Chloride Level 104 MEQ/L 103 MEQ/L Carbon Dioxide Level 25.6 MEQ/L 27.0 MEQ/L Anion Gap 9 MEQ/L 9 MEQ/L Blood Urea Nitrogen 39 MG/DL 34 MG/DL Creatinine 2.03 MG/DL 1.84 MG/DL Estimat Glomerular Filtration 32 ML/MIN 36 ML/MIN Rate Random Glucose 166 MG/DL 159 MG/DL Calcium Level 8.2 MG/DL 8.4 MG/DL Magnesium Level 1.9 MG/DL 1.9 MG/DL Total Bilirubin 1.6 MG/DL 1.1 MG/DL Aspartate Amino Transf 30 U/L 28 U/L (AST/SGOT) Alanine Aminotransferase 14 U/L 12 U/L (ALT/SGPT) Alkaline Phosphatase 203 U/L 210 U/L Total Protein 5.8 GM/DL 5.7 GM/DL Albumin 2.8 GM/DL 2.7 GM/DL Imaging Last Impressions Chest X-Ray 08/20/16 0600 Signed Impressions: Service Date/Time: Saturday, August 20, 2016 02:53 - CONCLUSION: Pulmonary edema without significant change compared to the prior study. Alfredito Salcedo MD Head CT 08/17/16 1726 Signed Impressions: Service Date/Time: Wednesday, August 17, 2016 17:39 - CONCLUSION: 1. Moderate severity central and cortical atrophy. No acute findings in the brain. 2. Right maxillary sinus disease with heterogeneous density and expansion of the medial wall. Probable mucocele. Augustus Stauffer MD Objective Remarks General: NAD, AAOx3 Chest: Decreased breath sounds bilaterally Cardiac: Regular Abd: +BS, soft ND/NT Ext: No edema A/P Problem List: (1) GI bleed Status: Acute Plan: - The pt is a 75 y/o male who presented to the ED after a near-syncopal episode after getting up to go to the bathroom he became suddenly very weak and felt as though he was going to pass out, but he did not lose consciousness. He was incontinent of a loose stool and had some mild shortness of breath - In the ED he was found to be anemic with H&H of 7.4/23.6 and was noted to have some dark stool in the ER. - Pt was transfused with 3 units of PRBCs - He had recently underwent an ablation for atrial fibrillation on 07/22/16 and was placed on Eliquis after procedure. - Pt was admitted to ICU and GI was consulted. - Pt had previously undergone EGD/colonoscopy (05/16/16)----> large friable nodules in the antrum, EGD was otherwise normal, severe gastritis, mild diverticulosis was noted in the left colon, and anatomy consistent with right hemicolectomy. - Pt had a repeat EGD (08/18/16) ---> showed gastritis - GI recommended outpatient capsule endoscopy once patient is discharged. Hemoglobin stable at 9.6. (2) Anemia Status: Acute Plan: - See above. (3) Acute systolic CHF (congestive heart failure) Status: Acute Plan: - On 08/18 CXR noted developing bibasilar effusions with concomitant atelectatic changes and prominent interstitial markings with cardiomegaly consistent with some degree of CHF. - BNP was 2528 at admission. - Troponin peaked at 2.67. - Cardiology following. - Echo 07/21/16 noted EF 40-45%. - Pt was initially treated with Lasix 20mg IV BID on 08/18 and this was increased to 40mg IV BID on 08/19 - Renal functions are slowly improving. - Monitor I&Os - Daily weights - Monitor BMP - Pt unable to be on JILLIAN/ARB due to ARF (4) Near syncope Status: Acute Plan: - Etiology unclear, may be related to pts anemia but cardiology recommending possible event monitor vs. loop recorder as an outpt (5) Afib Status: Chronic Plan: - Pt with a hx of A. uri and previously underwent EPS study with ablation on - Pts CHADS-Vasc score is 6 - He had been on Eliquis but anticoagulation currently on hold due to GIB. - Cardiology recommending resuming anticoagulation after cleared by GI. - Pt is on Amiodarone 200mg po daily (6) Acute kidney injury Status: Acute Plan: - Labs are improving - Avoid nephrotoxic medications (7) HTN (hypertension) Status: Chronic Plan: - Pt is on Hydralazine 50mg Q8H, Hytrin 5mg HS - Pt also on Lasix 40mg IV BID for diuresis (8) CAD (coronary artery disease) Status: Chronic Assessment and Plan Patient examined. Assessment and plan formulated with Kailey Thurman PA-C. I agree with the above. Problem Qualifiers (1) GI bleed: Qualified Code: K92.2 - Gastrointestinal hemorrhage, unspecified gastrointestinal hemorrhage type (2) Anemia: Qualified Code: D64.89 - Anemia due to other cause, not classified Kailey Thurman Aug 20, 2016 16:28 Crispin Garces DO August 30, 2016 11:33
[2016-08-20] MEDS ORDERED: FUROSEMIDE 40 MG TAB PO ONE (17:00)
--- NOTE | 2016-08-20 17:09 | HHI.FF ---
Face to Face Verification Diagnosis: (1) Acute systolic CHF (congestive heart failure) (2) Tachy-cristela syndrome (3) Anxiety (4) HTN (hypertension) (5) Gout Physical Therapy Order: Evaluate and Treat, Improve ambulation, Strength and gait training Home Health Nursing Order: Medical education Signs/symptoms of disease process CHF education Medication education-adverse effect Nursing assessment with vital signs Instructions: obtain BMP/Mag/BNP on 08/25/16 and fax results to Dr. Alirio Johnson I have seen patient Dustin Ellison on 08/20/16. My clinical findings support the need for the requested home health care services because: Ltd mobility - disease progression Patient has SOB Deconditioned w/ increased weakness Med compliance is questionable Limited ability to care for self Need for psychosocial assistance Impaired cognition/judgement I certify that my clinical findings support that this patient is homebound because: Impaired cognitive ability/safety Unsafe to leave home unassisted Need for psychosocial assistance Unable to use public transportation Poor cardiac reserve Crispin Garces DO Aug 20, 2016 17:09
[2016-08-20] MEDS ORDERED: FURO1TAB60 PO (17:10)
[2016-08-20] MEDS ORDERED: hydrALAZINE HCL 50 MG TAB PO SCH (22:00)
--- NOTE | 2016-09-12 13:13 | HHI.DS ---
Discharge Summary Admission Date Aug 17, 2016 at 19:35 Discharge Date: September 19, 2016 Admitting Diagnosis NSTEMI, GI bleed (1) GI bleed Diagnosis: Principal (2) Anemia Diagnosis: Principal (3) Near syncope Diagnosis: Principal (4) Acute systolic CHF (congestive heart failure) Diagnosis: Secondary (5) Afib Diagnosis: Secondary (6) Acute kidney injury Diagnosis: Secondary (7) HTN (hypertension) Diagnosis: Secondary (8) CAD (coronary artery disease) Diagnosis: Secondary Consultants Dr. Wicho Monk, Gastroenterology Dr. Brooks Gates, Cardiology Procedures Pt had a repeat EGD (08/18/16) ---> showed gastritis Brief History 75-year-old male comes in after a near-syncopal episode. He recently underwent an ablation for atrial fibrillation and was placed on Eliquis after procedure . He was feeling well today and was sitting with his legs up in his recliner due to swelling. He says he tried to get up and go to the bathroom when he suddenly felt very weak near to pass out. His helped him get to the ground. He defecated on himself. He denies losing consciousness. He has been feeling short of breath, and had pain to his upper left chest and his left arm. He says the pain to his left chest started earlier today and he tried resting in bed to make it better. He denies fever or chills. He denies nausea or vomiting. Imaging Last Impressions Chest X-Ray 08/20/16 0600 Signed Impressions: Service Date/Time: Saturday, August 20, 2016 02:53 - CONCLUSION: Pulmonary edema without significant change compared to the prior study. Alfredito Salcedo MD Head CT 08/17/16 1726 Signed Impressions: Service Date/Time: Wednesday, August 17, 2016 17:39 - CONCLUSION: 1. Moderate severity central and cortical atrophy. No acute findings in the brain. 2. Right maxillary sinus disease with heterogeneous density and expansion of the medial wall. Probable mucocele. Augustus Stauffer MD PE at Discharge General: NAD, AAOx3 Chest: Decreased breath sounds bilaterally Cardiac: Regular Abd: +BS, soft ND/NT Ext: No edema Transfer Summary 75-year-old male comes in after a near-syncopal episode. He recently underwent an ablation for atrial fibrillation and was placed on Eliquis after procedure . He was feeling well today and was sitting with his legs up in his recliner due to swelling. He says he tried to get up and go to the bathroom when he suddenly felt very weak near to pass out. His helped him get to the ground. He defecated on himself. He denies losing consciousness. He has been feeling short of breath, and had pain to his upper left chest and his left arm. He says the pain to his left chest started earlier today and he tried resting in bed to make it better. He denies fever or chills. He denies nausea or vomiting. 08/18/16-Lying in bed no acute distress. Denies chest pain. Chest x-ray shows pulmonary edema BNP is 2528. Troponin peaked at 2.67. Echo 07/21/16 EF 40-45%. No active bleeding reported 08/19: EGD 08/18/16 showed gastritis. Gi Recommended outpatient capsule endoscopy once patient is discharged. Hemoglobin stable at 9.7. CXR shows some interval worsening of CHF. UO 1.25L in 24 hours. Will increase Lasix to 40q12. Hospital Course (1) GI bleed Status: Acute Plan: - The pt is a 75 y/o male who presented to the ED after a near-syncopal episode after getting up to go to the bathroom he became suddenly very weak and felt as though he was going to pass out, but he did not lose consciousness. He was incontinent of a loose stool and had some mild shortness of breath - In the ED he was found to be anemic with H&H of 7.4/23.6 and was noted to have some dark stool in the ER. - Pt was transfused with 3 units of PRBCs - He had recently underwent an ablation for atrial fibrillation on 07/22/16 and was placed on Eliquis after procedure. - Pt was admitted to ICU and GI was consulted. - Pt had previously undergone EGD/colonoscopy (05/16/16)----> large friable nodules in the antrum, EGD was otherwise normal, severe gastritis, mild diverticulosis was noted in the left colon, and anatomy consistent with right hemicolectomy. - Pt had a repeat EGD (08/18/16) ---> showed gastritis - GI recommended outpatient capsule endoscopy once patient is discharged. Hemoglobin stable at 9.6. - Pt discharged to home see orders (2) Anemia Status: Acute Plan: - See above. (3) Acute systolic CHF (congestive heart failure) Status: Acute Plan: - On 08/18 CXR noted developing bibasilar effusions with concomitant atelectatic changes and prominent interstitial markings with cardiomegaly consistent with some degree of CHF. - BNP was 2528 at admission. - Troponin peaked at 2.67. - Cardiology following. - Echo 07/21/16 noted EF 40-45%. - Pt was initially treated with Lasix 20mg IV BID on 08/18 and this was increased to 40mg IV BID on 08/19 - Renal functions slowly improved to Cr 1.84 - Pt unable to be on JILLIAN/ARB due to ARF (4) Near syncope Status: Acute Plan: - Etiology unclear, may be related to pts anemia but cardiology recommending possible event monitor vs. loop recorder as an outpt (5) Afib Status: Chronic Plan: - Pt with a hx of A. fib and previously underwent EPS study with ablation on - Pts CHADS-Vasc score is 6 - He had been on Eliquis but anticoagulation currently on hold due to GIB. - Cardiology recommending resuming anticoagulation after cleared by GI. - Pt is on Amiodarone 200mg po daily (6) Acute kidney injury Status: Acute Plan: - Labs are improving - Avoid nephrotoxic medications (7) HTN (hypertension) Status: Chronic Plan: - Pt is on Hydralazine 50mg Q8H, Hytrin 5mg HS - Pt also on Lasix 40mg IV BID for diuresis (8) CAD (coronary artery disease) Status: Chronic Pt Condition on Discharge: Stable Discharge Disposition: Disch w/ Home Health Serv Discharge Instructions DIET: Follow Instructions for: Heart Healthy Diet Activities you can perform: Weight Bearing as Tricia Follow up Referrals: Cardiology - [address] Brooks Lance Gastroenterology - 2 Weeks with Wicho Monk MD PCP Follow-up - [address] Alirio Johnson Changed Medications: Furosemide (Lasix) 40 Mg Tab 40 MG PO BID chf #30 Ref 0 TAB (Changed from: DAILY) Continued Medications: Allopurinol (Allopurinol) 100 Mg Tab 200 MG PO BID Gout Ref 0 TAB Alprazolam (Alprazolam) 0.25 Mg Tab 0.25 MG PO BID ANXIETY Ref 0 TAB Amiodarone (Amiodarone) 200 Mg Tab 200 MG PO DAILY SSS #30 Ref 0 TAB Glipizide (Glipizide) 10 Mg Tab 10 MG PO BIDAC Take 30 minutes before a meal Blood Sugar Management #60 Ref 0 TAB Metformin (Metformin) 500 Mg Tab 500 MG PO BIDPC With meals Blood Sugar Management #60 Ref 0 TAB Metoprolol Tartrate (Lopressor) 100 Mg Tab 50 MG PO Q12HR arrythmia #60 Ref 0 TAB Oxycodone-Acetaminophen (Oxycodone-Acetaminophen) 5-325 mg Tab 1 TAB PO Q4H PRN pain #7 TAB Pantoprazole (Pantoprazole) 40 Mg Tab 40 MG PO DAILY Reflux #30 Ref 0 TAB Temazepam (Temazepam) 15 Mg Cap 15 MG PO HS PRN INSOMNIA #30 Ref 0 CAP Terazosin (Terazosin) 5 Mg Cap 5 MG PO HS #30 Ref 0 CAP ([Artificial Tears Opth Soln]) 300 DROP/15 ML SOLN 1 DROP EACH EYE Q4H PRN DRY EYE Ref 0 BOTTLE Discontinued Medications: Apixaban (Eliquis) 5 Mg Tab 5 MG PO BID arrythmia #60 Ref 0 TAB Crispin Garces DO September 12, 2016 13:13
== END 2016-08-20 18:34 | disposition home health service (06) | DRG 377 ==
LOC: NEPE 17:13 → NEDA 19:35 → N03A 08-18 00:31 → HCIN 08-19 23:12
PROVIDERS: ADMIT Hospitalist; ATTEND Hospitalist
PROC: 0DB68ZX Excision of Stomach, Via Natural or Artificial Opening Endoscopic, Diagnostic (ICD-10-PCS; 2016-08-18)
PROC: 30253N1 (ICD-10-PCS; 2016-08-18)
PROC: 30253N1 (ICD-10-PCS; principal; 2016-08-18 15:50)
DX: K92.2 Gastrointestinal hemorrhage, unspecified (principal); I50.21 Acute systolic (congestive) heart failure; I21.4 Non-ST elevation (NSTEMI) myocardial infarction; N17.9 Acute kidney failure, unspecified; D68.9 Coagulation defect, unspecified; E11.22 Type 2 diabetes mellitus with diabetic chronic kidney disease; I49.5 Sick sinus syndrome; I48.91 Unspecified atrial fibrillation; R55 Syncope and collapse; I13.0 Hypertensive heart and chronic kidney disease with heart failure and stage 1 through stage 4 chronic kidney disease, or unspecified chronic kidney disease; N18.9 Chronic kidney disease, unspecified; K29.70 Gastritis, unspecified, without bleeding; D64.9 Anemia, unspecified; E78.5 Hyperlipidemia, unspecified; M06.9 Rheumatoid arthritis, unspecified; M19.90 Unspecified osteoarthritis, unspecified site; I25.10 Atherosclerotic heart disease of native coronary artery without angina pectoris; I25.2 Old myocardial infarction; J32.0 Chronic maxillary sinusitis; K21.9 Gastro-esophageal reflux disease without esophagitis; K57.90 Diverticulosis of intestine, part unspecified, without perforation or abscess without bleeding; G25.81 Restless legs syndrome; M10.9 Gout, unspecified; F41.8 Other specified anxiety disorders; Z79.899 Other long term (current) drug therapy; Z85.038 Personal history of other malignant neoplasm of large intestine; Z85.46 Personal history of malignant neoplasm of prostate; Z85.528 Personal history of other malignant neoplasm of kidney; Z85.820 Personal history of malignant melanoma of skin
CPT/HCPCS: 36430; 70450; 71010; 80053; 81001; 82948; 83605; 83735; 83880; 84100; 84484; 85014; 85018; 85025; 85610; 85730; 86850; 86900; 86901; 86920; 87641; 88305; 88312; 93005; C9113; J1815; J1940; J7030; J7050; P9016

== ENCOUNTER 2016-11-24 05:44 | Day surgery (SDC) | payer MEDICARE, MEDICAID ==
[~2016-11-24 05:44] MED LIST changes: -APIX5TAB PO; +PANT40TA3 PO; +TEMA15CA PO
[2016-11-24] MEDS ORDERED: COLC1TAB7 PO (06:02)
[2016-11-24] MEDS ORDERED: HYDR-3799 PO (06:02)
[2016-11-24] MEDS ORDERED: LEVO100T5 PO (06:02)
[2016-11-24] MEDS ORDERED: K-TA10TA PO (06:02)
[2016-11-24] MEDS ORDERED: ACET300T2 PO (06:02)
[2016-11-24] MEDS ORDERED: TRAZPOW (06:02)
[2016-11-24] MEDS ORDERED: METO25TA3 PO (06:02)
[2016-11-24] MEDS ORDERED: CHLORHEXIDINE GLUCONATE 2 % 1 PACK (2 CLOTHS) TOPICAL PRN (06:15)
[2016-11-24] MEDS ORDERED: METOPROLOL TARTRATE 25 MG TAB PO PRN (06:15)
[2016-11-24] MEDS ORDERED: LACTATED RINGER'S 1000 ML IV PRN (06:15)
[2016-11-24] MEDS ORDERED: INSULIN HUMAN REGULAR 1,000 UNITS/10 ML VIAL SQ PRN (06:15)
[2016-11-24] MEDS ORDERED: POVIDONE IODINE 5% (ANTISEPSIS KIT) 4 APPLICATIONS EACH NARE PRN (06:15)
[2016-11-24] MEDS ORDERED: SODIUM CHLORID 0.9% 500 ML IV PRN (06:15)
--- NOTE | 2016-11-24 12:24 | MA ---
cc: YULIYA DURAN M.D. DATE 11/24/2016 PROCEDURE PERFORMED Cardioversion. INDICATIONS FOR PROCEDURE Mr. Ellison is a 76-year-old gentleman with atrial fibrillation to undergo cardioversion. The risks, the nature and the benefit of the procedure were clearly stated to him. The risks include cardiac arrest, need for endotracheal intubation and even . The patient understood and agreed to proceed. PROCEDURE After written informed consent was obtained, the patient was evaluate by the anesthesiologist. Once sedation was verified, anterolateral pads were placed. A 200 sync biphasic joule was delivered that converted the patient into sinus rhythm. At that point the procedure was complete. The patient fully recuperated from sedation. He is going to be discharged home later today. No incident reported. The patient tolerated the procedure. CONCLUSION Successful cardioversion. RECOMMENDATIONS As mentioned before, the patient is going to be discharged home later today. Followup as previously scheduled. Continue with home meds. MD EDIL Lezama/ANTHONY /10:52 AM /12:16 PM
--- NOTE | 2016-11-24 15:39 | EKG ---
Date Performed: 11/24/2016 Time Performed: 06:16:16 PTAGE: 76 years EKG: Possible atrial flutter with slow ventricular response. Prolonged QT interval Inferior/late ral ST-T changes are nonspecific Abnormal ECG PREVIOUS TRACING : 08/18/2016 07.36 Compared to previous tracing, ventricular response to atria l flutter is slower. DOCTOR: Marin Barriga Interpretating Date/Time 11/24/2016 15:37:05
--- NOTE | 2016-11-24 15:39 | EKG ---
Date Performed: 11/24/2016 Time Performed: 08:29:08 PTAGE: 76 years EKG: Sinus bradycardia with 1st degree A-V block. Lateral T wave changes are nonspecific Abnorma l ECG PREVIOUS TRACING : 11/24/2016 06.16 Compared to previous tracing, sinus bradycardia has replace d atrial flutter. DOCTOR: Marin Barriga Interpretating Date/Time 11/24/2016 15:37:30
== END 2016-11-24 09:24 | disposition home or self-care (01) ==
LOC: HDOC 05:44 → HDIC 05:45 → HDOC 09:24
PROVIDERS: ATTEND Internal Medicine Interventional Cardiology
DX: I48.91 Unspecified atrial fibrillation (principal)
CPT/HCPCS: 92960; 93005

== ENCOUNTER 2016-12-14 07:54 | Observation (INO) | payer MEDICARE, MEDICAID ==
[~2016-12-14] VITALS: Ht 170.2 cm; Wt 97.0 kg
[2016-12-14] VITALS (10 sets, daily range): BP systolic 136–214; BP diastolic 66–94; PULSE 50–101; RESP 16–24; TEMP 98.2–98.8; O2SAT 97–99
[~2016-12-14 07:54] MED LIST changes: +ACET300T2 PO; -Artificial Tears Opth Soln EACH EYE; -GLIP10TA6 PO; +HYDR-3799 PO; +K-TA10TA PO; +LEVO100T5 PO; -METF500T PO; -METO-338 PO; +METO25TA3 PO; -OXYC1TAB63 PO; -TEMA15CA PO; +TRAZPOW
--- NOTE | 2016-12-14 12:44 | RADRPT ---
EXAM DATE/TIME: 12/14/2016 09:25 [facility] COMPARISON: No previous studies available for comparison. INDICATIONS : Epigastric pain today. ORAL CONTRAST: No oral contrast ingested. RADIATION DOSE: 16.22 CTDIvol (mGy) MEDICAL HISTORY : Carcinoma, colon. Diverticulosis. Myocardial infarction.diabetes SURGICAL HISTORY : Colon resection. Cholecystectomy. ENCOUNTER: Initial ACUITY: 1 day PAIN SCALE: 10/10 LOCATION: epigastric abdomen TECHNIQUE: Volumetric scanning of the abdomen and pelvis was performed. Using automated exposure control and ad justment of the mA and/or kV according to patient size, radiation dose was kept as low as reasonably achievable to obtain optimal diagnostic quality images. DICOM format image data is available electro nically for review and comparison. FINDINGS: LOWER LUNGS: Small right pleural effusion. 9 mm pulmonary nodule right lower lobe laterally LIVER: Homogeneous density without lesion. There is no dilation of the biliary tree. Cholecystectomy clips. SPLEEN: Normal size without lesion. PANCREAS: Within normal limits. KIDNEYS: Normal in size and shape. There is no mass, stone, or hydronephrosis. Small bilateral renal low dens ities one of which is hyperdense involving the lower right kidney posteriorly. ADRENAL GLANDS: Within normal limits. VASCULAR: There is no aortic aneurysm. BOWEL/MESENTERY: There is wall thickening involving the sigmoid colon with diverticulosis/diverticulitis. No perforati on or abscess. There is no free intraperitoneal air or fluid. ABDOMINAL WALL: Small ventral wall hernia containing loop of small bowel. No signs of obstruction or strangulation. T here are some mildly prominent proximal small bowel loops. Stomach is mildly dilated containing fluid . Fat-containing inguinal hernia. RETROPERITONEUM: There is no lymphadenopathy. BLADDER: No wall thickening or mass. REPRODUCTIVE: Within normal limits. INGUINAL: There is no lymphadenopathy or hernia. MUSCULOSKELETAL: Within normal limits for patient age. CONCLUSION: 1. There is mild degree of diverticulitis involving the sigmoid colon. No perforation or abscess. 2. Small ventral wall hernia containing small segment of small bowel. There are some mildly prominent small bowel loops proximally and dilated fluid-filled stomach but no definite obstruction seen at th is time. 3. Bilateral renal low densities including small hyperdense lesion right kidney. These are likely rel ated to cysts. 4. Small right pleural effusion and nodule right lower lobe measuring [address] chest in 6 mo nths recommended for stability. 5. Status post cholecystectomy. Sridhar Ny MD on December 14, 2016 at 9:49 Board Certified Radiologist. This report was verified electronically.
[2016-12-14] MEDS ORDERED: GLIP10TA6 PO (13:04)
[2016-12-14] MEDS ORDERED: REST15CA PO (13:04)
[2016-12-14] MEDS ORDERED: METF500T PO (13:04)
[2016-12-14 13:10] LABS: APTT (PATIENT) 23.3 SEC (24.3-30.1); PROTHROMBIN TIME - PATIENT 11.2 SEC (9.8-11.6)
[2016-12-14] MEDS ORDERED: TRAD5TAB PO (13:16)
[2016-12-14 13:17] LABS: AUTOMATED NEUTROPHIL # 6.1 TH/MM3 (1.8-7.7); BASOPHIL # 0.1 TH/MM3 (0-0.2); BASOPHIL % 0.7 % (0.0-2.0); EOSINOPHIL # 0.1 TH/MM3 (0-0.4); EOSINOPHIL % 0.9 % (0.0-4.0); HEMATOCRIT 41.2 % (39.0-51.0); HEMO FLAGS DIFF FINAL; LYMPHOCYTE # 0.9 TH/MM3 (1.0-4.8); MEAN CELL VOLUME 94.7 FL (80.0-100.0); MEAN CORPUSCULAR HEMOGLOBIN 32.1 PG (27.0-34.0); MEAN CORPUSCULAR HGB CONC 33.9 % (32.0-36.0); MONO % 5.8 % (0.0-8.0); NEUT % 80.6 % (16.0-70.0); PLATELET COUNT 162 TH/MM3 (150-450); RED BLOOD COUNT 4.35 MIL/MM3 (4.50-5.90); RED CELL DISTRIBUTION WIDTH 17.3 % (11.6-17.2); WHITE BLOOD COUNT 7.6 TH/MM3 (4.0-11.0)
[2016-12-14 13:28] LABS: ALKALINE PHOSPHATASE 245 U/L (45-117); ALT (GPT) 17 U/L (12-78); ANION GAP 14 MEQ/L (5-15); AST (GOT) 51 U/L (15-37); BICARBONATE 23.9 MEQ/L (21.0-32.0); BLOOD UREA NITROGEN 22 MG/DL (7-18); CHLORIDE 99 MEQ/L (98-107); GLOMERULAR FILTRATION RATE 33 ML/MIN (>89); POTASSIUM 4.4 MEQ/L (3.5-5.1); SODIUM (NA) 137 MEQ/L (136-145)
[2016-12-14] MEDS ORDERED: NALOXONE HCL 0.4 MG/ML AMP IV PRN (13:30)
[2016-12-14] MEDS ORDERED: TEMAZEPAM 15 MG CAP PO PRN (13:30)
[2016-12-14] MEDS ORDERED: SODIUM CHLORIDE 0.9% FLUSH 10 ML FLUSH IV FLUSH PRN (13:30)
[2016-12-14] MEDS ORDERED: ACETAMINOPHEN 325 MG TAB PO PRN (13:30)
[2016-12-14] MEDS ORDERED: MAGNESIUM HYDROXIDE SUSP 30 ML CUP PO PRN (13:30)
[2016-12-14] MEDS ORDERED: ONDANSETRON HCL 4 MG/2 ML VIAL IVP PRN (13:30)
[2016-12-14] MEDS ORDERED: ENALAPRILAT 1.25 MG/ML VIAL IV PRN (13:45)
[2016-12-14] MEDS ORDERED: cloNIDine HCL 0.2 MG TAB PO PRN (13:45)
--- NOTE | 2016-12-14 14:07 | RADRPT ---
EXAM DATE/TIME: 12/14/2016 13:54 [facility] COMPARISON: CHEST SINGLE AP, August 20, 2016, 2:53. INDICATIONS : Upper abdomen pain. MEDICAL HISTORY : Carcinoma, colon. Diverticulosis. Myocardial infarction.diabetes SURGICAL HISTORY : Colon resection. Cholecystectomy. ENCOUNTER: Initial ACUITY: 1 day PAIN SCORE: 9/10 LOCATION: Bilateral lower chest FINDINGS: A single view of the chest demonstrates right basilar airspace disease. Heart enlarged minimal densit y left lower lobe. The cardiomediastinal contours are unremarkable. Osseous structures are intact. CONCLUSION: Bibasilar consolidation, greater in the right lower lobe likely pneumonia. Sridhar Ny MD on December 14, 2016 at 14:05 Board Certified Radiologist. This report was verified electronically.
[2016-12-14] MEDS ORDERED: MORPHINE SULFATE 4 MG/ML INJ IV PUSH ONE (14:30)
[2016-12-14] MEDS ORDERED: metroNIDAZOLE 500 MG INJ 100 ML IV ONE (14:30)
[2016-12-14] MEDS ORDERED: CIPROFLOXACIN 400 MG PREMIX 200 ML IV ONE (14:30)
[2016-12-14] MEDS: ALPRAZolam 0.25 MG TAB PO PRN (15:01)
[2016-12-14] MEDS: INSULIN ASPART SUPPLEMENTAL SCALE SQ SCH ×2 (16:31→21:00)
--- NOTE | 2016-12-14 17:24 | PD ---
HPI Chief Complaint: GI Complaint Time Seen by Provider: 13:03 Travel History International Travel<30 days: No Contact w/Intl Traveler<30days: No Traveled to known affect area: No History of Present Illness HPI Patient is a 76-year-old male with history of diverticulitis, who comes in complaining of abdominal pain. He says the pain started last night and got worse at 4 AM and has been getting worse. He says the pain is in the left side of his abdomen. He reports some nausea and vomiting. He says he had a bowel movement yesterday that was normal. He denies fever or chills. He says it started after he ate some peanuts last night. He denies any urinary symptoms. He denies chest pain or shortness of breath. PFSH Past Medical History Arthritis: Yes Asthma: No Autoimmune Disease: No Blood Disorders: No Anxiety: Yes Depression: No Heart Rhythm Problems: Yes Cancer: Yes (melanoma, colon,prostate) Cardiac Catheterization: Yes (X1) Cardiovascular Problems: Yes High Cholesterol: Yes Chemotherapy: No Chest Pain: No Congestive Heart Failure: No COPD: No Cerebrovascular Accident: No Diabetes: Yes Patient Takes Glucophage: Yes Diminished Hearing: No Diverticulitis: Yes Endocrine: Yes (DM) Gastrointestinal Disorders: Yes (diverticulosis) GERD: No Glaucoma: No Gout: Yes Genitourinary: Yes (freq) Headaches: No Hepatitis: No Hiatal Hernia: Yes Hypertension: Yes Immune Disorder: No Kidney Stones: No Medical other: No Musculoskeletal: No Neurologic: No Psychiatric: Yes (anxiety) Reproductive: No Respiratory: No Immunizations Current: Yes Migraines: No Myocardial Infarction: Yes Radiation Therapy: Yes Renal Failure: No Seizures: No Sickle Cell Disease: No Sleep Apnea: No Thyroid Disease: No Ulcer: No Influenza Vaccination: Yes Past Surgical History Abdominal Surgery: Yes (colon resection) AICD: No Appendectomy: No Arteriovenous Shunt: No Cardiac Surgery: Yes (reyna aragon ) Cholecystectomy: Yes Ear Surgery: No Endocrine Surgery: No Eye Surgery: No Genitourinary Surgery: Yes (kidney ) Gynecologic Surgery: No Insulin Pump: No Joint Replacement: No Oral Surgery: Yes (dentures) Pacemaker: No Thoracic Surgery: No Tonsillectomy: Yes (T&A) Other Surgery: Yes (melanoma) Social History Alcohol Use: No Tobacco Use: No Substance Use: No Allergies-Medications (Allergen,Severity, Reaction): Coded Allergies: diatrizoate meglumine (Unverified Allergy, Severe, RASH, ITCHING, 12/09/16) gadobenic acid (Unverified Allergy, Severe, RASH, ITCHING, 12/09/16) gadoteridol (Unverified Allergy, Severe, RASH, ITCHING, 12/09/16) iodixanol (Unverified Allergy, Severe, RASH, ITCHING, 12/09/16) shellfish derived (Unverified Allergy, Severe, RASH, ITCHING, 12/09/16) fenofibrate (Verified Allergy, Unknown, unknown , 12/14/16) niacin (Verified Allergy, Unknown, jittery , 12/14/16) Reported Meds & Prescriptions Reported Meds & Active Scripts Active Lasix (Furosemide) 40 Mg Tab 40 Mg PO BID Amiodarone (Amiodarone HCl) 200 Mg Tab 200 Mg PO DAILY Reported Tradjenta (Linagliptin) 5 Mg Tab 5 Mg PO HS Restoril (Temazepam) 15 Mg Cap 15 Mg PO HS PRN Metformin (Metformin HCl) 500 Mg Tab 500 Mg PO BID With meals Glipizide 10 Mg Tab 10 Mg PO BID Take 30 minutes before a meal Metoprolol Tartrate 25 Mg Tab 25 Mg PO BID Levothyroxine (Levothyroxine Sodium) 100 Mcg Tab 100 Mcg PO DAILY K-Tab (Potassium Chloride) 10 Meq Tab 10 Meq PO BID Hydralazine HCl 25 Mg Tablet 25 Mg PO TID Colcrys (Colchicine) 0.6 Mg Tab 0.6 Mg PO DAILY PRN Acetaminophen-Codeine 300-30 mg Tab 1 Tab PO TID Pantoprazole (Pantoprazole Sodium) 40 Mg Tab 40 Mg PO DAILY Alprazolam 0.25 Mg Tab 0.25 Mg PO BID PRN Terazosin (Terazosin HCl) 5 Mg Cap 5 Mg PO BID Allopurinol 100 Mg Tab 200 Mg PO BID Review of Systems Except as stated in HPI: all other systems reviewed are Neg General / Constitutional: No: Fever, Chills HENT: No: Headaches, Lightheadedness Cardiovascular: No: Chest Pain or Discomfort Respiratory: No: Shortness of Breath Gastrointestinal: Positive: Nausea, Vomiting, Abdominal Pain, No: Diarrhea, Constipation Genitourinary: No: Dysuria Musculoskeletal: No: Pain Skin: No Rash, No Itching Neurologic: No: Weakness, Dizziness Physical Exam Narrative GENERAL: Awake and alert, in moderate distress due to pain. SKIN: Focused skin assessment warm/dry. HEAD: Atraumatic. Normocephalic. EYES: Pupils equal and round. No scleral icterus. ENT: Mucous membranes pink and moist. NECK: Trachea midline. No JVD. CARDIOVASCULAR: Regular rate and rhythm. No murmur appreciated. RESPIRATORY: No accessory muscle use. Clear to auscultation. Breath sounds equal bilaterally. GASTROINTESTINAL: Abdomen soft, nondistended. Tender to palpation along the left side of the abdomen, voluntary guarding, no rebound. MUSCULOSKELETAL: No obvious deformities. No clubbing. No cyanosis. No edema. NEUROLOGICAL: Awake and alert. No obvious cranial nerve deficits. Motor grossly within normal limits. Normal speech. PSYCHIATRIC: Appropriate mood and affect; insight and judgment normal. Data Data Last Documented VS Vital Signs Date Time Temp Pulse Resp B/P (MAP) Pulse Ox O2 Delivery O2 Flow Rate FiO2 12/14/16 13:00 54 23 173/71 (105) [address] Abd/Pel W/O Iv Contrast (12/14/16 09:02) Lactic Acid (12/14/16 11:10) Comprehensive Metabolic Panel (12/14/16 08:36) Lipase (12/14/16 08:36) Troponin I (12/14/16 08:36) Act Partial Throm Time (Ptt) (12/14/16 08:36) Prothrombin Time / Inr (Pt) (12/14/16 08:36) Complete Blood Count With Diff (12/14/16 08:36) Lactic Acid (12/14/16 08:36) Admit Order (Ed Use Only) (12/14/16 ) Labs Laboratory Tests Test 12/14/16 08:36 12/14/16 11:10 White Blood Count 7.6 TH/MM3 Red Blood Count 4.35 MIL/MM3 Hemoglobin 14.0 GM/DL Hematocrit 41.2 % Mean Corpuscular Volume 94.7 FL Mean Corpuscular Hemoglobin 32.1 PG Mean Corpuscular Hemoglobin Concent 33.9 % Red Cell Distribution Width 17.3 % Platelet Count 162 TH/MM3 Mean Platelet Volume 10.8 FL Neutrophils (%) (Auto) 80.6 % Lymphocytes (%) (Auto) 12.0 % Monocytes (%) (Auto) 5.8 % Eosinophils (%) (Auto) 0.9 % Basophils (%) (Auto) 0.7 % Neutrophils # (Auto) 6.1 TH/MM3 Lymphocytes # (Auto) 0.9 TH/MM3 Monocytes # (Auto) 0.4 TH/MM3 Eosinophils # (Auto) 0.1 TH/MM3 Basophils # (Auto) 0.1 TH/MM3 CBC Comment DIFF FINAL Differential Comment Prothrombin Time 11.2 SEC Prothromb Time International Ratio 1.0 RATIO Activated Partial Thromboplast Time 23.3 SEC Blood Urea Nitrogen 22 MG/DL Creatinine 1.97 MG/DL Random Glucose 210 MG/DL Total Protein 7.9 GM/DL Albumin 3.9 GM/DL Calcium Level 9.8 MG/DL Alkaline Phosphatase 245 U/L Aspartate Amino Transf (AST/SGOT) 51 U/L Alanine Aminotransferase (ALT/SGPT) 17 U/L Total Bilirubin 1.0 MG/DL Sodium Level 137 MEQ/L Potassium Level 4.4 MEQ/L Chloride Level 99 MEQ/L Carbon Dioxide Level 23.9 MEQ/L Anion Gap 14 MEQ/L Estimat Glomerular Filtration Rate 33 ML/MIN Lactic Acid Level 4.1 mmol/L 3.0 mmol/L Troponin I LESS THAN 0.02 NG/ML Lipase 221 U/L MDM Medical Decision Making Medical Screen Exam Complete: Yes Emergency Medical Condition: Yes Medical Record Reviewed: Yes Interpretation(s) ECG shows normal sinus rhythm at 61, first-degree AV block, frequent PVCs. Differential Diagnosis colitis versus diverticulitis versus small bowel obstruction Narrative Course Patient is a 76-year-old male comes in complaining of abdominal pain with nausea and vomiting. Exam shows tenderness to left side of the abdomen. IV established, labs sent. Labs show an elevated lactic acid of 4.0. Patient given IV fluids, pain medicine. CT abdomen and pelvis shows diverticulitis as well as a ventral hernia. Patient continues to have pain, given a second dose of morphine as well as a dose of Cipro and Flagyl. Patient reports continued pain. Based on his elevated lactic acid and poor pain control, patient will be placed in observation for further management. Diagnosis Primary Impression: Diverticulitis Qualified Codes: K57.32 - Diverticulitis of large intestine without perforation or abscess without bleeding Additional Impression: Ventral hernia Qualified Codes: K43.9 - Ventral hernia without obstruction or gangrene Admitting Information Admitting Physician Requests: Observation Condition: Stable Diamante Mendes MD Dec 14, 2016 17:24
[2016-12-14] MEDS: metFORMIN HCL 500 MG TAB PO SCH (18:00)
[2016-12-14] MEDS ORDERED: METOCLOPRAMIDE HCL 10 MG/2 ML VIAL IV PUSH PRN (18:15)
--- NOTE | 2016-12-14 18:26 | HHI.HP ---
HPI Service [facility] Hospitalists Primary Care Physician Unknown Admission Diagnosis Diverticulitis, elevated lactic acid Chief Complaint: abdominal pain Travel History International Travel<30 Days: No Contact w/Intl Traveler <30 Da: No Traveled to Known Affected Are: No History of Present Illness Patient is a pleasant 76-year-old male with history of diverticulosis who presented to the ER with complaint of abdominal pain. Pain started 4 PM last night. Pain most pronounced on his left side. Associated with nausea vomiting. Patient had a normal bowel movement yesterday. Patient underwent atrial fibrillation ablation this past spring. Patient has previously reported difficulties with alternating diarrhea constipation for which she takes [id number] laxatives and enemas. Patient has a prior history of colon cancer in 2008, adenocarcinoma, for which she underwent resection. Patient did not receive any adjuvant therapy. Patient also has a history of prostate cancer and renal cell carcinoma, status post cryoablation treatment. Patient had imaging 07/11 which noted the treated mass to be slightly larger than on pretreatment CT. That time patient was recommended a follow-up CT scan in 6 months. Patient underwent EGD/colonoscopy (05/16/16) which showed large friable nodules in the antrum, EGD was otherwise normal, severe gastritis. Colonoscopy consistent with previous right hemicolectomy. Pathology of large stomach nodule showed chemical gastropathy negative for H. pylori. Patient was supposed to have capsule endoscopy, not sure if this was performed. CT of the abdomen and pelvis (12/20/16) shows mild diverticulitis and ventral wall hernia containing small segment of small bowel. There are some mildly prominent small bowel loops proximally and dilated fluid-filled stomach but no definitive obstruction seen. Patient admitted to observation status at [facility] for further evaluation treatment Review of Systems Constitutional: DENIES: Diaphoretic episodes, Fatigue, Fever, Weight gain, Weight loss, Chills, Dizziness, Change in appetite, Night Sweats Endocrine: DENIES: Heat/cold intolerance, Polydipsia, Polyuria, Polyphagia Eyes: DENIES: Blurred vision, Diplopia, Eye inflammation, Eye pain, Vision loss , Photosensitivity, Double Vision Ears, nose, mouth, throat: DENIES: Tinnitus, Hearing loss, Vertigo, Nasal discharge, Oral lesions, Throat pain, Hoarseness, Ear Pain, Running Nose, Epistaxis, Sinus Pain, Toothache, Odynophagia Respiratory: DENIES: Apneas, Cough, Snoring, Wheezing, Hemoptysis, Sputum production, Shortness of breath Cardiovascular: DENIES: Chest pain, Palpitations, Syncope, Dyspnea on Exertion , PND, Lower Extremity Edema, Orthopnea, Claudication Gastrointestinal: COMPLAINS OF: Abdominal pain, Nausea, Vomiting, See HPI, DENIES: Black stools, Bloody stools, BRB per rectum, Constipation, Diarrhea, GERD, Reflux, Difficulty Swallowing, Anorexia Genitourinary: DENIES: Urinary frequency, Urinary incontinence, Urgency, Hematuria, Dysuria, Nocturia Musculoskeletal: DENIES: Joint pain, Muscle aches, Stiffness, Joint Swelling, Back pain, Neck pain Integumentary: DENIES: Abnormal pigmentation, Nail changes, Pruritus, Rash Hematologic/lymphatic: DENIES: Bruising, Lymphadenopathy Neurologic: DENIES: Abnormal gait, Headache, Localized weakness, Paresthesias, Seizures, Speech Problems, Tremor, Poor Balance Psychiatric: DENIES: Anxiety, Confusion, Mood changes, Depression, Hallucinations, Agitation, Suicidal Ideation, Homicidal Ideation, Delusions, History of Bipolar, History of Schizophrenia Past Family Social History Past Medical History Anemia. Atherosclerosis of aorta Hypertension Coronary artery disease Atrial fibrillation with atrial fibrillation ablation, spring 2016 Chronic kidney disease Depression Alternating constipation/diarrhea Diverticulosis Gastritis Hx Friable gastric nodules GERD Anxiety History of colon cancer, status post resection Hyperlipidemia History of left renal mass Osteoarthritis Pancreatic cyst Renal cell carcinoma, left kidney Rheumatoid arthritis Prostate cancer Restless legs syndrome Thrombocytopenia Type 2 DM Vitamin D deficiency Past Surgical History EGD/Colonoscopy Renal biopsy Skin biopsy Cholecystectomy Excision of lesion shoulders Hx fine needle aspiration Partial colectomy Radiation therapy Tonsillectomy Cardiac catheterization Ablation, for atrial fibrillation Reported Medications Reported Meds & Active Scripts Active Lasix (Furosemide) 40 Mg Tab 40 Mg PO BID Amiodarone (Amiodarone HCl) 200 Mg Tab 200 Mg PO DAILY Reported Tradjenta (Linagliptin) 5 Mg Tab 5 Mg PO HS Restoril (Temazepam) 15 Mg Cap 15 Mg PO HS PRN Metformin (Metformin HCl) 500 Mg Tab 500 Mg PO BID With meals Glipizide 10 Mg Tab 10 Mg PO BID Take 30 minutes before a meal Metoprolol Tartrate 25 Mg Tab 25 Mg PO BID Levothyroxine (Levothyroxine Sodium) 100 Mcg Tab 100 Mcg PO DAILY K-Tab (Potassium Chloride) 10 Meq Tab 10 Meq PO BID Hydralazine HCl 25 Mg Tablet 25 Mg PO TID Colcrys (Colchicine) 0.6 Mg Tab 0.6 Mg PO DAILY PRN Acetaminophen-Codeine 300-30 mg Tab 1 Tab PO TID Pantoprazole (Pantoprazole Sodium) 40 Mg Tab 40 Mg PO DAILY Alprazolam 0.25 Mg Tab 0.25 Mg PO BID PRN Terazosin (Terazosin HCl) 5 Mg Cap 5 Mg PO BID Allopurinol 100 Mg Tab 200 Mg PO BID Allergies: Coded Allergies: diatrizoate meglumine (Unverified Allergy, Severe, RASH, ITCHING, 12/09/16) gadobenic acid (Unverified Allergy, Severe, RASH, ITCHING, 12/09/16) gadoteridol (Unverified Allergy, Severe, RASH, ITCHING, 12/09/16) iodixanol (Unverified Allergy, Severe, RASH, ITCHING, 12/09/16) shellfish derived (Unverified Allergy, Severe, RASH, ITCHING, 12/09/16) fenofibrate (Verified Allergy, Unknown, unknown , 12/14/16) niacin (Verified Allergy, Unknown, jittery , 12/14/16) Family History Mother with hx of CAD/CVA Father had heart disease, stroke syndrom Social History - No tobacco - No alcohol - No illicit street drugs Physical Exam Vital Signs Vital Signs Date Time Temp Pulse Resp B/P (MAP) Pulse Ox O2 Delivery O2 Flow Rate FiO2 12/14/16 17:17 98.2 60 18 172/78 (109) 98 12/14/16 16:45 12/14/16 16:00 52 16 158/66 (96) 98 Room Air 12/14/16 15:30 98.6 58 16 136/82 (100) 98 12/14/16 15:00 52 18 189/74 (112) 98 Room Air 12/14/16 14:30 50 18 208/77 (120) 99 Room Air 12/14/16 14:00 52 16 183/77 (112) 98 Room Air 12/14/16 13:00 54 23 173/71 (105) 98 12/14/16 07:56 101 24 214/94 (134) 97 Physical Exam GENERAL: This is a well-nourished, well-developed patient, in no apparent distress. SKIN: No rashes, ecchymoses or lesions. Cool and dry. HEAD: Atraumatic. Normocephalic. No temporal or scalp tenderness. EYES: Pupils equal round and reactive. Extraocular motions intact. No scleral icterus. No injection or drainage. ENT: Nose without bleeding, purulent drainage or septal hematoma. Throat without erythema, tonsillar hypertrophy or exudate. Uvula midline. Airway patent. NECK: Trachea midline. No JVD or lymphadenopathy. Supple, nontender, no meningeal signs. CARDIOVASCULAR: Regular rate and rhythm without murmurs, gallops, or rubs. RESPIRATORY: Clear to auscultation. Breath sounds equal bilaterally. No wheezes , rales, or rhonchi. GASTROINTESTINAL: Abdomen soft, non-tender, nondistended. No hepato-splenomegaly , or palpable masses. No guarding. MUSCULOSKELETAL: Extremities without clubbing, cyanosis, or edema. No joint tenderness, effusion, or edema noted. No calf tenderness. Negative Homans sign bilaterally. NEUROLOGICAL: Awake and alert. Cranial nerves II through XII intact. Motor and sensory grossly within normal limits. Five out of 5 muscle strength in all muscle groups. Normal speech. Laboratory Laboratory Tests Test 12/14/16 08:36 12/14/16 11:10 White Blood Count 7.6 Red Blood Count 4.35 Hemoglobin 14.0 Hematocrit 41.2 Mean Corpuscular Volume 94.7 Mean Corpuscular Hemoglobin 32.1 Mean Corpuscular Hemoglobin Concent 33.9 Red Cell Distribution Width 17.3 Platelet Count 162 Mean Platelet Volume 10.8 Neutrophils (%) (Auto) 80.6 Lymphocytes (%) (Auto) 12.0 Monocytes (%) (Auto) 5.8 Eosinophils (%) (Auto) 0.9 Basophils (%) (Auto) 0.7 Neutrophils # (Auto) 6.1 Lymphocytes # (Auto) 0.9 Monocytes # (Auto) 0.4 Eosinophils # (Auto) 0.1 Basophils # (Auto) 0.1 CBC Comment DIFF FINAL Differential Comment Prothrombin Time 11.2 Prothromb Time International Ratio 1.0 Activated Partial Thromboplast Time 23.3 Blood Urea Nitrogen 22 Creatinine 1.97 Random Glucose 210 Total Protein 7.9 Albumin 3.9 Calcium Level 9.8 Alkaline Phosphatase 245 Aspartate Amino Transf (AST/SGOT) 51 Alanine Aminotransferase (ALT/SGPT) 17 Total Bilirubin 1.0 Sodium Level 137 Potassium Level 4.4 Chloride Level 99 Carbon Dioxide Level 23.9 Anion Gap 14 Estimat Glomerular Filtration Rate 33 Lactic Acid Level 4.1 3.0 Troponin I LESS THAN 0.02 Lipase 221 Result Diagram: 12/14/1683512/14/16835 Septic Shock Reassessment Heart: Regular rate and rhythm Lungs: Clear Skin: Warm Peripheral Pulses: Bounding Right Radial Bounding Left Radial Bounding Right Popliteal Bounding Left Popliteal Bounding Right Dorsalis Pedis Bounding Left Dorsalis Pedis Bounding Right Posterior Tibial Bounding Left Posterior Tibial Capillary Refill: Brisk Caprini VTE Risk Assessment Caprini VTE Risk Assessment: Mod/High Risk (score >= 2) Caprini Risk Assessment Model Point Value = 1 Point Value = 2 Point Value = 3 Point Value = 5 Age 41-60 Minor surgery BMI > 25 kg/m2 Swollen legs Varicose veins or History of unexplained or recurrent spontaneous Oral contraceptives or hormone replacement Sepsis (< 1 month) Serious lung disease, including pneumonia (< 1 month) Abnormal pulmonary function Acute myocardial infarction Congestive heart failure (< 1 month) History of inflammatory bowel disease Medical patient at bed rest Age 61-74 Arthroscopic surgery Major open surgery (> 45 min) Laparoscopic surgery (> 45 min) Malignancy Confined to bed (> 72 hours) Immobilizing plaster cast Central venous access Age >= 75 History of VTE Family history of VTE Factor V Leiden Prothrombin [id number] Lupus anticoagulant Anticardiolipin antibodies Elevated serum homocysteine Heparin-induced thrombocytopenia Other congenital or acquired thrombophilia Stroke (< 1 month) Elective arthroplasty Hip, pelvis, or leg fracture Acute spinal cord injury (< 1 month) Prophylaxis Regimen Total Risk Factor Score Risk Level Prophylaxis Regimen 0-1 Low Early ambulation 2 Moderate Order ONE of the following: *Sequential Compression Device (SCD) *Heparin 5000 units SQ BID 3-4 Higher Order ONE of the following medications: *Heparin 5000 units SQ TID *Enoxaparin/Lovenox 40 mg SQ daily (WT < 150 kg, CrCl > 30 mL/min) *Enoxaparin/Lovenox 30 mg SQ daily (WT < 150 kg, CrCl > 10-29 mL/min) *Enoxaparin/Lovenox 30 mg SQ BID (WT < 150 kg, CrCl > 30 mL/min) AND/OR *Sequential Compression Device (SCD) 5 or more Highest Order ONE of the following medications: *Heparin 5000 units SQ TID (Preferred with Epidurals) *Enoxaparin/Lovenox 40 mg SQ daily (WT < 150 kg, CrCl > 30 mL/min) *Enoxaparin/Lovenox 30 mg SQ daily (WT < 150 kg, CrCl > 10-29 mL/min) *Enoxaparin/Lovenox 30 mg SQ BID (WT < 150 kg, CrCl > 30 mL/min) AND *Sequential Compression Device (SCD) Assessment and Plan Problem List: (1) Abdominal pain ICD Codes: R10.9 - Unspecified abdominal pain Status: Acute Plan: - Patient with known diverticulosis presented to the ER with complaint of left lower quadrant abdominal pain associated with nausea and vomiting or approximately 1 day - CT scan showed mild diverticulitis - Patient with ventral wall hernia with associated small bowel loops but no definitive obstruction - Nothing by mouth for bowel rest - Intravenous fluids - continue IV Cipro & flagyl - Zofran/Reglan for nausea - KUB in a.m. - SCD for DVT prophylaxis (2) Elevated lactic acid level ICD Codes: R79.89 - Other specified abnormal findings of blood chemistry Status: Acute Plan: - doubt sepsis - pt received IVFs in ER - continue IVFs - pt has no fever, hypotension, or clinical symptoms c/w sepsis - will repeat lactic acid level in AM (3) Anxiety ICD Codes: F41.9 - Anxiety disorder, unspecified Status: Chronic Plan: - Continue outpatient medications (4) Afib ICD Codes: I48.91 - Unspecified atrial fibrillation Status: Chronic Plan: - Continue outpatient medications (5) DM (diabetes mellitus) ICD Codes: E11.9 - Type 2 diabetes mellitus without complications Status: Chronic Plan: - Hold oral hypoglycemics, patient nothing by mouth - SSI (6) BPH (benign prostatic hyperplasia) ICD Codes: N40.0 - Benign prostatic hyperplasia without lower urinary tract symptoms Status: Chronic Plan: - Continue outpatient medications Problem Qualifiers (1) Abdominal pain: Qualified Codes: R10.9 - Unspecified abdominal pain (2) DM (diabetes mellitus): Qualified Codes: E11.8 - Type 2 diabetes mellitus with unspecified complications (3) BPH (benign prostatic hyperplasia): Qualified Codes: N40.0 - Benign prostatic hyperplasia without lower urinary tract symptoms Crispin Garces DO Dec 14, 2016 18:26
[2016-12-14] MEDS ORDERED: HYDROmorphone HCL PF 1 MG/ML VIAL IV PUSH PRN (18:30)
[2016-12-14] MEDS: hydrALAZINE HCL 25 MG TAB PO SCH (18:49)
[2016-12-14] MEDS: TERAZOSIN HCL 5 MG CAP PO SCH ×2 (21:00→21:34)
[2016-12-14] MEDS: METOPROLOL TARTRATE 25 MG TAB PO SCH ×2 (21:00→21:37)
[2016-12-14] MEDS: ALLOPURINOL 100 MG TAB PO SCH ×2 (21:00→21:34)
[2016-12-14] MEDS: SODIUM CHLORIDE 0.9% FLUSH 10 ML FLUSH IV FLUSH SCH (21:34)
[2016-12-14] MEDS: metroNIDAZOLE 500 MG INJ 100 ML IV SCH (21:35)
--- NOTE | 2016-12-14 21:42 | EKG ---
Date Performed: 12/14/2016 Time Performed: 15:48:41 PTAGE: 76 years EKG: Sinus rhythm WITH FIRST DEGREE AV BLOCK WITH OCCASIONAL ATRIAL PREMATURE COMPLEXES NONSPECIFIC ST & T-WAVE ABNORM ALITY PROLONGED QT INTERVAL ABNORMAL ECG PREVIOUS TRACING : 11/24/2016 08.29 Compared to previous tracing, PACs are now present. DOCTOR: Satish Kim Interpretating Date/Time 12/14/2016 21:41:47
[2016-12-14] MEDS: ONDANSETRON HCL 4 MG/2 ML VIAL IV PUSH PRN (21:55)
[2016-12-14] MEDS: 1/2 NS + KCL 20 MEQ INJ 1,000 ML IV SCH (22:37)
[2016-12-14] MEDS: CIPROFLOXACIN 400 MG PREMIX 200 ML IV SCH (23:46)
[2016-12-15] MEDS: metroNIDAZOLE 500 MG INJ 100 ML IV SCH ×2 (05:01→14:43)
[2016-12-15 05:32] LABS: AUTOMATED NEUTROPHIL # 3.4 TH/MM3 (1.8-7.7); BASOPHIL % 0.2 % (0.0-2.0); EOSINOPHIL % 0.5 % (0.0-4.0); HEMATOCRIT 33.9 % (39.0-51.0); HEMO FLAGS DIFF FINAL; LYMPH % 12.6 % (9.0-44.0); LYMPHOCYTE # 0.6 TH/MM3 (1.0-4.8); MEAN CELL VOLUME 94.9 FL (80.0-100.0); MEAN CORPUSCULAR HEMOGLOBIN 31.2 PG (27.0-34.0); MEAN CORPUSCULAR HGB CONC 32.8 % (32.0-36.0); MONO % 10.8 % (0.0-8.0); NEUT % 75.9 % (16.0-70.0); PLATELET COUNT 113 TH/MM3 (150-450); RED BLOOD COUNT 3.57 MIL/MM3 (4.50-5.90); RED CELL DISTRIBUTION WIDTH 17.2 % (11.6-17.2); WHITE BLOOD COUNT 4.4 TH/MM3 (4.0-11.0)
[2016-12-15 05:59] LABS: BICARBONATE 27.8 MEQ/L (21.0-32.0)
[2016-12-15] MEDS: INSULIN ASPART SUPPLEMENTAL SCALE SQ SCH ×3 (07:00→18:50)
[2016-12-15] MEDS: ONDANSETRON HCL 4 MG/2 ML VIAL IV PUSH PRN (08:11)
[2016-12-15] MEDS: ALPRAZolam 0.25 MG TAB PO PRN (08:12)
[2016-12-15 08:45] VITALS: BP 150/69; PULSE 47; RESP 17; TEMP 97.6; O2SAT 92
--- NOTE | 2016-12-15 08:50 | HHI.PR ---
Subjective Remarks Pt had two episodes of vomiting last night He has had two large loose BMs last night and this morning as well. Afebrile Pt reports that his abdominal pain is improving. Objective Vitals Vital Signs Date Time Temp Pulse Resp B/P (MAP) Pulse Ox O2 Delivery O2 Flow Rate FiO2 12/14/16 23:55 98.8 62 18 152/69 (96) 98 12/14/16 23:00 68 12/14/16 19:20 17 12/14/16 17:17 98.2 60 18 172/78 (109) 98 12/14/16 16:45 12/14/16 16:00 52 16 158/66 (96) 98 Room Air 12/14/16 15:30 98.6 58 16 136/82 (100) 98 12/14/16 15:00 52 18 189/74 (112) 98 Room Air 12/14/16 14:30 50 18 208/77 (120) 99 Room Air 12/14/16 14:00 52 16 183/77 (112) 98 Room Air 12/14/16 13:00 54 23 173/71 (105) 98 Result Diagram: 12/15/16 0512 12/15/16 0512 Other Results Laboratory Tests Test 12/14/16 08:36 12/14/16 11:10 12/15/16 05:12 White Blood Count 7.6 TH/MM3 4.4 TH/MM3 Red Blood Count 4.35 MIL/MM3 3.57 MIL/MM3 Hemoglobin 14.0 GM/DL 11.1 GM/DL Hematocrit 41.2 % 33.9 % Mean Corpuscular Volume 94.7 FL 94.9 FL Mean Corpuscular Hemoglobin 32.1 PG 31.2 PG Mean Corpuscular Hemoglobin Concent 33.9 % 32.8 % Red Cell Distribution Width 17.3 % 17.2 % Platelet Count 162 TH/MM3 113 TH/MM3 Mean Platelet Volume 10.8 FL 9.1 FL Neutrophils (%) (Auto) 80.6 % 75.9 % Lymphocytes (%) (Auto) 12.0 % 12.6 % Monocytes (%) (Auto) 5.8 % 10.8 % Eosinophils (%) (Auto) 0.9 % 0.5 % Basophils (%) (Auto) 0.7 % 0.2 % Neutrophils # (Auto) 6.1 TH/MM3 3.4 TH/MM3 Lymphocytes # (Auto) 0.9 TH/MM3 0.6 TH/MM3 Monocytes # (Auto) 0.4 TH/MM3 0.5 TH/MM3 Eosinophils # (Auto) 0.1 TH/MM3 0.0 TH/MM3 Basophils # (Auto) 0.1 TH/MM3 0.0 TH/MM3 CBC Comment DIFF FINAL DIFF FINAL Differential Comment Prothrombin Time 11.2 SEC Prothromb Time International Ratio 1.0 RATIO Activated Partial Thromboplast Time 23.3 SEC Blood Urea Nitrogen 22 MG/DL 25 MG/DL Creatinine 1.97 MG/DL 1.86 MG/DL Random Glucose 210 MG/DL 169 MG/DL Total Protein 7.9 GM/DL Albumin 3.9 GM/DL Calcium Level 9.8 MG/DL 8.0 MG/DL Alkaline Phosphatase 245 U/L Aspartate Amino Transf (AST/SGOT) 51 U/L Alanine Aminotransferase (ALT/SGPT) 17 U/L Total Bilirubin 1.0 MG/DL Sodium Level 137 MEQ/L 139 MEQ/L Potassium Level 4.4 MEQ/L 4.0 MEQ/L Chloride Level 99 MEQ/L 104 MEQ/L Carbon Dioxide Level 23.9 MEQ/L 27.8 MEQ/L Anion Gap 14 MEQ/L 7 MEQ/L Estimat Glomerular Filtration Rate 33 ML/MIN 35 ML/MIN Lactic Acid Level 4.1 mmol/L 3.0 mmol/L 1.7 mmol/L Troponin I LESS THAN 0.02 NG/ML Lipase 221 U/L Imaging Last Impressions Abdomen/Pelvis CT 12/14/16 0902 Signed Impressions: Service Date/Time: Wednesday, December 14, 2016 09:25 - CONCLUSION: 1. There is mild degree of diverticulitis involving the sigmoid colon. No perforation or abscess. 2. Small ventral wall hernia containing small segment of small bowel. There are some mildly prominent small bowel loops proximally and dilated fluid-filled stomach but no definite obstruction seen at this time. 3. Bilateral renal low densities including small hyperdense lesion right kidney. These are likely related to cysts. 4. Small right pleural effusion and nodule right lower lobe measuring [address] chest in 6 months recommended for stability. 5. Status post cholecystectomy. Sridhar Ny MD Objective Remarks General: NAD, Awake and alert Chest: CTA Cardiac: Regular Abd: +BS, soft obese, nontender Ext: No edema A/P Problem List: (1) Abdominal pain ICD Codes: R10.9 - Unspecified abdominal pain Status: Acute Plan: - Patient with known diverticulosis presented to the ER with complaint of left lower quadrant abdominal pain associated with nausea and vomiting or approximately 1 day - CT scan showed mild diverticulitis - Patient with ventral wall hernia with associated small bowel loops but no definitive obstruction - Pt currently NPO - Cont. IVF - Zofran/Reglan for nausea - Await KUB this morning and if negative start clear liquid diet. - SCD for DVT prophylaxis (2) Elevated lactic acid level ICD Codes: R79.89 - Other specified abnormal findings of blood chemistry Status: Acute Plan: - doubt sepsis - pt received IVFs - pt has no fever, hypotension, or clinical symptoms c/w sepsis - repeat lactic acid level improved (3) Anxiety ICD Codes: F41.9 - Anxiety disorder, unspecified Status: Chronic Plan: - Continue outpatient medications (4) Afib ICD Codes: I48.91 - Unspecified atrial fibrillation Status: Chronic Plan: - Continue outpatient medications (5) DM (diabetes mellitus) ICD Codes: E11.9 - Type 2 diabetes mellitus without complications Status: Chronic Plan: - Hold oral hypoglycemics, patient nothing by mouth - SSI (6) BPH (benign prostatic hyperplasia) ICD Codes: N40.0 - Benign prostatic hyperplasia without lower urinary tract symptoms Status: Chronic Plan: - Continue outpatient medications Assessment and Plan Patient examined. Assessment and plan formulated with Kailey Thurman PA-C. I agree with the above. pt with diverticulitis. improved. bowels moving. no vomiting pt eager to be discharged. advance diet and dc if tolerating. offered to stay for observation tonight. cont abx. f/u pcp/gi/. has gen surg appt also. Problem Qualifiers (1) Abdominal pain: Qualified Codes: R10.9 - Unspecified abdominal pain (2) DM (diabetes mellitus): Qualified Codes: E11.8 - Type 2 diabetes mellitus with unspecified complications (3) BPH (benign prostatic hyperplasia): Qualified Codes: N40.0 - Benign prostatic hyperplasia without lower urinary tract symptoms Kailey Thurman Dec 15, 2016 08:50 Ronald Mike MD Dec 15, 2016 16:10
[2016-12-15] MEDS: metFORMIN HCL 500 MG TAB PO SCH ×2 (09:00→18:00)
[2016-12-15] MEDS ORDERED: LEVOTHYROXINE SODIUM 100 MCG TAB PO SCH (09:00)
[2016-12-15] MEDS ORDERED: AMIODARONE 200 MG TAB PO SCH (09:00)
[2016-12-15] MEDS: SODIUM CHLORIDE 0.9% FLUSH 10 ML FLUSH IV FLUSH SCH (09:00)
[2016-12-15] MEDS: ALLOPURINOL 100 MG TAB PO SCH (09:01)
[2016-12-15] MEDS: TERAZOSIN HCL 5 MG CAP PO SCH (09:01)
[2016-12-15] MEDS: METOPROLOL TARTRATE 25 MG TAB PO SCH (09:01)
[2016-12-15] MEDS: hydrALAZINE HCL 25 MG TAB PO SCH ×3 (09:01→18:48)
--- NOTE | 2016-12-15 09:59 | RADRPT ---
EXAM DATE/TIME: 12/15/2016 09:26 [facility] COMPARISON: No previous studies available for comparison. INDICATIONS : Abdomen pain. MEDICAL HISTORY : Diverticulosis. left kidney cancer. SURGICAL HISTORY : Cholecystectomy. part of left kidney removed, 2 ft . of colon removed from diverticulitis ENCOUNTER: Initial ACUITY: 2 days PAIN SCORE: 7/10 LOCATION: Bilateral abdomen FINDINGS: Supine view of the abdomen was performed. The abdominal bowel gas pattern is normal. No abnormal ma sses, calcifications, or organomegaly is seen. The osseous structures are unremarkable. Degenerative changes lower lumbar spine. Presumed phleboliths are seen within the left pelvis. Vascular calcifica tions. Prostatic seeds are seen. CONCLUSION: No acute abnormalities. Sridhar Ny MD on December 15, 2016 at 9:54 Board Certified Radiologist. This report was verified electronically.
[2016-12-15 11:59] VITALS: BP 126/60; PULSE 48; RESP 16; TEMP 97.8; O2SAT 92
[2016-12-15] MEDS: CIPROFLOXACIN 400 MG PREMIX 200 ML IV SCH (12:32)
[2016-12-15] MEDS ORDERED: AUGM500T7 PO (14:27)
[2016-12-15] MEDS ORDERED: METR-1 PO (14:27)
--- NOTE | 2016-12-15 14:32 | HHI.DCPOC ---
Discharge Care Plan Diagnosis: (1) Diverticulitis (2) BPH (benign prostatic hyperplasia) (3) Elevated lactic acid level (4) Afib (5) DM (diabetes mellitus) (6) Ventral hernia (7) Acute systolic CHF (congestive heart failure) Goals to Promote Your Health - Patients Metformin is to be stopped for now as his kidney function is not adequate enough to tolerate this medication at this time. He will need to followup with his PCP, to determine if he needs to be on different oral diabetes medication. - Patient is to followup with his PCP in 1 week, call for an appt. - Patient is to followup with GI, [facility], in 2 weeks, because of his diverticulitis. Call for an appt. - Monitor your heart rate at home and if your heart rate is below 60 then hold dose of Metoprolol. Directions to Meet Your Goals Take your medications as prescribed Follow your dietary instruction Follow activity as directed Keep your appointments as scheduled Take your immunizations and boosters as scheduled If your symptoms worsen call your PCP, if no PCP go to Urgent Care Center or Emergency Room Smoking is Dangerous to Your Health. Avoid second hand smoke Call the 24-hour hour crisis hotline for domestic abuse at Kailey Thurman Dec 15, 2016 14:32
[2016-12-15] MEDS: 1/2 NS + KCL 20 MEQ INJ 1,000 ML IV SCH (14:43)
[2016-12-15 15:18] VITALS: PULSE 43
[2016-12-15 16:28] VITALS: BP 131/60; PULSE 45; RESP 19; TEMP 97.6; O2SAT 96
[2017-02-05] MEDS ORDERED: TERA5CAP3 PO (11:46)
== END 2016-12-16 03:07 | disposition home or self-care (01) ==
LOC: NEPC 07:54 → NEDA 13:23 → NEPGCP 16:50
PROVIDERS: ADMIT Hospitalist; ATTEND Hospitalist
DX: K57.52 Diverticulitis of both small and large intestine without perforation or abscess without bleeding (principal); K43.9 Ventral hernia without obstruction or gangrene; K31.9 Disease of stomach and duodenum, unspecified; R74.0 Nonspecific elevation of levels of transaminase and lactic acid dehydrogenase [LDH]; K21.9 Gastro-esophageal reflux disease without esophagitis; I48.91 Unspecified atrial fibrillation; I50.21 Acute systolic (congestive) heart failure; I25.2 Old myocardial infarction; I13.0 Hypertensive heart and chronic kidney disease with heart failure and stage 1 through stage 4 chronic kidney disease, or unspecified chronic kidney disease; N18.9 Chronic kidney disease, unspecified; E11.22 Type 2 diabetes mellitus with diabetic chronic kidney disease; N40.0 Benign prostatic hyperplasia without lower urinary tract symptoms; E78.00 Pure hypercholesterolemia, unspecified; G25.81 Restless legs syndrome; F41.9 Anxiety disorder, unspecified; M10.9 Gout, unspecified; M06.9 Rheumatoid arthritis, unspecified; Z85.038 Personal history of other malignant neoplasm of large intestine; Z85.46 Personal history of malignant neoplasm of prostate; Z85.528 Personal history of other malignant neoplasm of kidney; Z85.820 Personal history of malignant melanoma of skin; Z90.49 Acquired absence of other specified parts of digestive tract; Z79.84 Long term (current) use of oral hypoglycemic drugs
CPT/HCPCS: 71010; 74000; 74176; 80048; 80053; 82948; 83605; 83690; 84484; 85025; 85610; 85730; 93005; 96365; 96366; 96367; 96372; 96375; 96376; 99285; G0378; J0744; J1170; J1815; J2270; J2405

== ENCOUNTER 2017-08-23 17:34 | Emergency (ER) | payer MEDICARE, MEDICAID ==
[~2017-08-23] VITALS: Ht 172.7 cm; Wt 110.0 kg
[~2017-08-23 17:34] MED LIST changes: +AUGM500T7 PO; +COLC0.6T PO; +GLIP10TA6 PO; +LOSA50TA PO; +METR-1 PO; +REST15CA PO; +TRAD5TAB PO; +TRAZ50TA12 PO; -TRAZPOW
[2017-08-23 17:39] VITALS: BP 168/75; PULSE 51; RESP 20; TEMP 97.9; O2SAT 97
[2017-08-23] MEDS ORDERED: TETANUS/DIPHTHERIA TOXOID ADULT 0.5 ML VIAL IM ONE (18:00)
[2017-08-23] MEDS ORDERED: LIDOCAINE 1%/EPINEPHrine 1:100,000 SOLN 20 ML VIAL INFIL ONE (18:00)
--- NOTE | 2017-08-23 18:03 | PD ---
HPI . Head injury Chief Complaint: Fall Time Seen by Provider: 17:52 Travel History International Travel<30 days: No Contact w/Intl Traveler<30days: No Traveled to known affect area: No History of Present Illness HPI This patient presents at the insistence of his for evaluation of an injury to his head. He states that he was working on the pool and slipped and fell and struck the back of his head. He denies loss of consciousness. His states that he has been asking her the same questions over and over again. They are unsure as to the date of his last tetanus shot. They state that he does not take an anticoagulant. Onset: Shortly prior to arrival Severity: mild Associated symptoms: Repetitive questions, scalp lac Context: No anticoagulation PFSH Past Medical History Arthritis: Yes Asthma: No Autoimmune Disease: No Blood Disorders: No Anxiety: Yes Depression: No Heart Rhythm Problems: Yes Cancer: Yes (melanoma, colon,prostate) Cardiac Catheterization: Yes (X1) Cardiovascular Problems: Yes (cardiac ablation) High Cholesterol: Yes Chemotherapy: Yes (kidney/colon/prostate/melanoma) Chest Pain: No Congestive Heart Failure: No COPD: No Cerebrovascular Accident: No Diabetes: Yes Diminished Hearing: No Diverticulitis: Yes Endocrine: Yes (DM) Gastrointestinal Disorders: Yes (diverticulosis) GERD: No Glaucoma: No Gout: Yes Genitourinary: Yes (freq) Headaches: No Hepatitis: No Hiatal Hernia: Yes Hypertension: Yes Immune Disorder: No Kidney Stones: No Musculoskeletal: No Neurologic: No Psychiatric: Yes (anxiety) Reproductive: No Respiratory: No Immunizations Current: Yes Migraines: No Myocardial Infarction: Yes Radiation Therapy: Yes Renal Failure: No Seizures: No Sickle Cell Disease: No Sleep Apnea: No Thyroid Disease: No Ulcer: No Past Surgical History Abdominal Surgery: Yes (colon resection) AICD: No Appendectomy: No Arteriovenous Shunt: No Cardiac Surgery: Yes (reyna aragon ) Cholecystectomy: Yes Ear Surgery: No Endocrine Surgery: No Eye Surgery: No Genitourinary Surgery: Yes (kidney ) Gynecologic Surgery: No Insulin Pump: No Joint Replacement: No Oral Surgery: Yes (dentures) Pacemaker: No Thoracic Surgery: No Tonsillectomy: Yes (T&A) Other Surgery: Yes (melanoma) Social History Alcohol Use: No Tobacco Use: No Substance Use: No Allergies-Medications (Allergen,Severity, Reaction): Coded Allergies: diatrizoate meglumine (Unverified Allergy, Severe, RASH, ITCHING, 08/23/17) gadobenic acid (Unverified Allergy, Severe, RASH, ITCHING, 08/23/17) gadoteridol (Unverified Allergy, Severe, RASH, ITCHING, 08/23/17) iodixanol (Unverified Allergy, Severe, RASH, ITCHING, 08/23/17) shellfish derived (Unverified Allergy, Severe, RASH, ITCHING, 08/23/17) fenofibrate (Verified Allergy, Unknown, unknown , 08/23/17) niacin (Verified Allergy, Unknown, jittery , 08/23/17) Reported Meds & Prescriptions Reported Meds & Active Scripts Active Alprazolam 0.25 Mg Tab 0.25 Mg PO BID PRN Losartan (Losartan Potassium) 50 Mg Tab 50 Mg PO DAILY Trazodone (Trazodone HCl) 50 Mg Tab 50 Mg PO HS Terazosin (Terazosin HCl) 5 Mg Cap 5 Mg PO BID Levothyroxine (Levothyroxine Sodium) 100 Mcg Tab 100 Mcg PO DAILY Lasix (Furosemide) 40 Mg Tab 40 Mg PO BID Pantoprazole (Pantoprazole Sodium) 40 Mg Tab 40 Mg PO DAILY Amiodarone (Amiodarone HCl) 200 Mg Tab 200 Mg PO DAILY Augmentin (Amoxicillin-Clavulanate) 500-125 mg Tab 500 Mg PO BID Flagyl (Metronidazole) 500 Mg Tab 500 Mg PO TID 10 Days Reported Tradjenta (Linagliptin) 5 Mg Tab 5 Mg PO HS Restoril (Temazepam) 15 Mg Cap 15 Mg PO HS PRN Glipizide 10 Mg Tab 10 Mg PO BID Take 30 minutes before a meal Metoprolol Tartrate 25 Mg Tab 25 Mg PO BID K-Tab (Potassium Chloride) 10 Meq Tab 10 Meq PO BID Hydralazine HCl 25 Mg Tablet 25 Mg PO TID Colcrys (Colchicine) 0.6 Mg Tab 0.6 Mg PO DAILY PRN Acetaminophen-Codeine 300-30 mg Tab 1 Tab PO TID Allopurinol 100 Mg Tab 200 Mg PO BID Review of Systems Except as stated in HPI: all other systems reviewed are Neg Physical Exam Narrative GENERAL: The patient has walked all the way from triage to [place] [facility] without difficulty. SKIN: warm/dry. He does have some matted blood in his scalp. I am unable to see a definite laceration. HEAD: Normocephalic. EYES: Pupils equal and round. No scleral icterus. No injection or drainage. ENT: No nasal bleeding or discharge. Mucous membranes pink and moist. NECK: Nontender. Full range of motion without pain. MUSCULOSKELETAL: No obvious deformities. NEUROLOGICAL: Awake and alert. No obvious cranial nerve deficits. Motor grossly within normal limits. Normal speech. PSYCHIATRIC: Appropriate mood and affect; insight and judgment normal. Data Data Last Documented VS Vital Signs Date Time Temp Pulse Resp B/P (MAP) Pulse Ox O2 Delivery O2 Flow Rate FiO2 08/23/17 17:39 97.9 51 20 168/75 (106) [address] Brain W/O Iv Contrast(Rout) (08/23/17 17:57) Tetanus/Diphtheria Tox Adult (Tetanus/Di (08/23/17 18:00) Wound Care (08/23/17 17:57) Lidocai-Epi 1%-1:100,000 Inj (Xylocaine- (08/23/17 18:00) MDM Medical Decision Making Medical Screen Exam Complete: Yes Emergency Medical Condition: Yes Differential Diagnosis My differential diagnosis of head trauma includes but is not limited to scalp contusion, concussion, intracerebral hemorrhage. Narrative Course This patient presents with a slip and fall with an injury to the back of his head. I will do a CT of his head. Tetanus will be updated. His wound will be cleaned and further examine for need for possible staplers. CT: 1. No acute intracranial normality is seen. 2. Left parietal scalp swelling. 3. Atrophy. 4. Suspected small vessel ischemic change in the white matter. 5. 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 This patient will be discharged home. Procedures Procedure Narrative LACERATION LOCATION: Scalp LENGTH: 2 cm NUMBER OF STITCHES/SAMMY: 4 REPAIR: The area of the laceration was prepped with peroxide. The laceration was infiltrated with 1% plain lidocaine. The wound was closed using sammy. This was a single layer repair. Patient tolerated the procedure well. Diagnosis Primary Impression: Scalp laceration Qualified Codes: S01.01XA - Laceration without foreign body of scalp, initial encounter Patient Instructions: General Instructions, Laceration (DC) Additional Instructions: Shampoo head gently daily with a baby shampoo. Staple removal in 7 days. Disposition: 01 DISCHARGE HOME Condition: Stable Jessica Lehman MD Aug 23, 2017 18:03
--- NOTE | 2017-08-23 18:46 | RADRPT ---
EXAM DATE/TIME: 08/23/2017 18:21 [facility] COMPARISON: CT BRAIN W/O CONTRAST, August 17, 2016, 17:39. INDICATIONS : Fell backwards hitting head. RADIATION DOSE: 56.35 CTDIvol (mGy) MEDICAL HISTORY : Cardiovascular disease. Hypertension. Diverticulitis.Diabetes Colon/Prostate cancer SURGICAL HISTORY : Colon resection. ENCOUNTER: Initial ACUITY: 1 day PAIN SCALE: 5/10 LOCATION: cranial TECHNIQUE: Multiple contiguous axial images were obtained of the head. Using automated exposure control and adj ustment of the mA and/or kV according to patient size, radiation dose was kept as low as reasonably a chievable to obtain optimal diagnostic quality images. DICOM format image data is available electro nically for review and comparison. FINDINGS: CEREBRUM: The ventricles and cortical sulci are widened. There are old lacunar infarcts at the right basal gang ramin, left thalamus and right paraventricular white matter. There is decreased density in the perivent ricular white matter. are normal for age. No evidence of midline shift, mass lesion, hemorrhage or a cute infarction. No extra-axial fluid collections are seen. Calcifications are seen at the internal carotid and basilar arteries. POSTERIOR FOSSA: The cerebellum and brainstem are intact. The 4th ventricle is midline. The cerebellopontine angle i s unremarkable. EXTRACRANIAL: The visualized portion of the orbits is intact. There is increased density and expansion of the right maxillary sinus consistent with mucocele. There is right ethmoid sinus disease. There is focal soft tissue swelling at the superior medial left parietal scalp. SKULL: The calvaria is intact. No evidence of skull fracture. CONCLUSION: 1. No acute intracranial normality is seen. 2. Left parietal scalp swelling. 3. Atrophy. 4. Suspected small vessel ischemic change in the white matter. 5. 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 Hussein Howard MD on August 23, 2017 at 18:35 Board Certified Radiologist. This report was verified electronically.
== END 2017-08-23 19:27 | disposition home or self-care (01) ==
LOC: NEPE 17:34
DX: S01.01XA Laceration without foreign body of scalp, initial encounter (principal); J32.0 Chronic maxillary sinusitis; E11.9 Type 2 diabetes mellitus without complications; M10.9 Gout, unspecified; I10 Essential (primary) hypertension; W01.198A Fall on same level from slipping, tripping and stumbling with subsequent striking against other object, initial encounter; Y92.34 Swimming pool (public) as the place of occurrence of the external cause; Z23 Encounter for immunization; Z87.19 Personal history of other diseases of the digestive system
CPT/HCPCS: 12001; 70450; 90471

== ENCOUNTER 2017-08-30 13:35 | Emergency (ER) | payer MEDICARE, MEDICAID ==
[~2017-08-30] VITALS: Ht 172.7 cm; Wt 100.0 kg
[2017-08-30 13:43] VITALS: BP 163/67; PULSE 51; RESP 18; TEMP 98.3; O2SAT 98
--- NOTE | 2017-08-30 13:59 | PD ---
HPI Chief Complaint: Wound/Suture/Staple Re-Check Time Seen by Provider: 13:47 Travel History International Travel<30 days: No Contact w/Intl Traveler<30days: No Traveled to known affect area: No History of Present Illness HPI 76-year-old male presents for staple removal. He was seen here in late July with laceration to his occipital scalp. 4 gonzalo were placed. He reports that he had some bleeding initially after the wound. Denies any complaints at this time. He has been washing it daily. PFSH Past Medical History Arthritis: Yes Asthma: No Autoimmune Disease: No Blood Disorders: No Anxiety: Yes Depression: No Heart Rhythm Problems: Yes Cancer: Yes (melanoma, colon,prostate) Cardiac Catheterization: Yes (X1) Cardiovascular Problems: Yes High Cholesterol: Yes Chemotherapy: Yes (kidney/colon/prostate/melanoma) Chest Pain: No Congestive Heart Failure: No COPD: No Cerebrovascular Accident: No Diabetes: Yes Diminished Hearing: No Diverticulitis: Yes Endocrine: Yes (DM) Gastrointestinal Disorders: Yes (diverticulosis) GERD: No Glaucoma: No Gout: Yes Genitourinary: Yes (freq) Headaches: No Hepatitis: No Hiatal Hernia: Yes Hypertension: Yes Immune Disorder: No Kidney Stones: No Musculoskeletal: No Neurologic: No Psychiatric: Yes (anxiety) Reproductive: No Respiratory: No Immunizations Current: Yes Migraines: No Myocardial Infarction: Yes Radiation Therapy: Yes Renal Failure: No Seizures: No Sickle Cell Disease: No Sleep Apnea: No Thyroid Disease: No Ulcer: No Past Surgical History Abdominal Surgery: Yes (colon resection) AICD: No Appendectomy: No Arteriovenous Shunt: No Cardiac Surgery: Yes (reyna aragon ) Cholecystectomy: Yes Ear Surgery: No Endocrine Surgery: No Eye Surgery: No Genitourinary Surgery: Yes (kidney ) Gynecologic Surgery: No Insulin Pump: No Joint Replacement: No Oral Surgery: Yes (dentures) Pacemaker: No Thoracic Surgery: No Tonsillectomy: Yes (T&A) Other Surgery: Yes (melanoma) Social History Alcohol Use: No Tobacco Use: No Substance Use: No Allergies-Medications (Allergen,Severity, Reaction): Coded Allergies: diatrizoate meglumine (Unverified Allergy, Severe, RASH, ITCHING, 08/23/17) gadobenic acid (Unverified Allergy, Severe, RASH, ITCHING, 08/23/17) gadoteridol (Unverified Allergy, Severe, RASH, ITCHING, 08/23/17) iodixanol (Unverified Allergy, Severe, RASH, ITCHING, 08/23/17) shellfish derived (Unverified Allergy, Severe, RASH, ITCHING, 08/23/17) fenofibrate (Verified Allergy, Unknown, unknown , 08/23/17) niacin (Verified Allergy, Unknown, jittery , 08/23/17) Reported Meds & Prescriptions Reported Meds & Active Scripts Active Alprazolam 0.25 Mg Tab 0.25 Mg PO BID PRN Losartan (Losartan Potassium) 50 Mg Tab 50 Mg PO DAILY Trazodone (Trazodone HCl) 50 Mg Tab 50 Mg PO HS Terazosin (Terazosin HCl) 5 Mg Cap 5 Mg PO BID Levothyroxine (Levothyroxine Sodium) 100 Mcg Tab 100 Mcg PO DAILY Lasix (Furosemide) 40 Mg Tab 40 Mg PO BID Pantoprazole (Pantoprazole Sodium) 40 Mg Tab 40 Mg PO DAILY Amiodarone (Amiodarone HCl) 200 Mg Tab 200 Mg PO DAILY Augmentin (Amoxicillin-Clavulanate) 500-125 mg Tab 500 Mg PO BID Flagyl (Metronidazole) 500 Mg Tab 500 Mg PO TID 10 Days Reported Tradjenta (Linagliptin) 5 Mg Tab 5 Mg PO HS Restoril (Temazepam) 15 Mg Cap 15 Mg PO HS PRN Glipizide 10 Mg Tab 10 Mg PO BID Take 30 minutes before a meal Metoprolol Tartrate 25 Mg Tab 25 Mg PO BID K-Tab (Potassium Chloride) 10 Meq Tab 10 Meq PO BID Hydralazine HCl 25 Mg Tablet 25 Mg PO TID Colcrys (Colchicine) 0.6 Mg Tab 0.6 Mg PO DAILY PRN Acetaminophen-Codeine 300-30 mg Tab 1 Tab PO TID Allopurinol 100 Mg Tab 200 Mg PO BID Review of Systems Skin: Positive Other (Positive for laceration, gonzalo), No Itching Physical Exam Narrative GENERAL: Well-nourished male in no acute distress SKIN: Warm and dry. Well-healing laceration to the occipital scalp with [address] There is some scabbing. HEAD: Skin as noted above. Normocephalic. EYES: Pupils equal and round. No scleral icterus. No injection or drainage. ENT: No nasal bleeding or discharge. Mucous membranes pink and moist. NECK: Trachea midline. No JVD. CARDIOVASCULAR: Regular rate and rhythm. No murmur appreciated. RESPIRATORY: No accessory muscle use. Clear to auscultation. Breath sounds equal bilaterally. Data Data Last Documented VS Vital Signs Date Time Temp Pulse Resp B/P (MAP) Pulse Ox O2 Delivery O2 Flow Rate FiO2 08/30/17 13:43 98.3 51 18 163/67 (99) 98 MDM Medical Decision Making Medical Screen Exam Complete: Yes Emergency Medical Condition: Yes Medical Record Reviewed: Yes Differential Diagnosis Staple removal, wound dehiscence, infected wound Narrative Course The gonzalo were removed without incident. Diagnosis Primary Impression: Removal of gonzalo Med/Other Pt SpecificInfo: Wound Care Disposition: 01 DISCHARGE HOME Condition: Stable Lobo Torres August 30, 2017 13:59
== END 2017-08-30 14:07 | disposition home or self-care (01) ==
LOC: NEPD 13:35
DX: S01.01XD Laceration without foreign body of scalp, subsequent encounter (principal); X58.XXXD Exposure to other specified factors, subsequent encounter; Z48.02 Encounter for removal of sutures
CPT/HCPCS: 99281

== ENCOUNTER 2017-10-05 13:08 | Emergency (ER) | payer MEDICARE, MEDICAID ==
[~2017-10-05] VITALS: Ht 172.7 cm; Wt 105.0 kg
[2017-10-05 13:15] VITALS: BP 176/79; PULSE 61; RESP 16; TEMP 97.8; O2SAT 98
[2017-10-05] MEDS ORDERED: DICL75TA PO (15:14)
--- NOTE | 2017-10-06 11:07 | PD ---
HPI Chief Complaint: Skin Problem Time Seen by Provider: 14:57 Travel History International Travel<30 days: No Contact w/Intl Traveler<30days: No Traveled to known affect area: No History of Present Illness HPI 76-year-old male that presents to the ED for evaluation of lesion to his right shoulder. Per patient he has had a mole there for some time and since yesterday he is noted change in its coloration as well as what appears to be increase in size. He has a significant history of cancer including skin cancer and he is concerned that he may be related to that. Apparently he was seen by his primary care doctor who recommended that he go see a sanding machine operator or tender and to get a biopsy. He apparently was supposed to follow-up with the procedures to him for the residents and he try to get there today but that would not be able to make an appointment so he decided to come here to see if he can get the biopsy in the ER. Seems to be very anxious about the whole situation. He states that he is concerned because he has had multiple bouts of cancer and his needed surgery for in the past and he wants to make sure that he is treated before he is is released from [facility] so he can see her. He does not want to before she gets released. Alert and there is no medical problems. No pain with it. No fevers chills or sweats. History Past Medical Histgory Hx Cancer: Yes (melanoma, colon,prostate) Hx Chemotherapy: Yes (kidney/colon/prostate/melanoma) Hx Radiation Therapy: Yes Social History Alcohol Use: No Tobacco Use: No Allergies-Medications (Allergen,Severity, Reaction): Coded Allergies: diatrizoate meglumine (Unverified Allergy, Severe, RASH, ITCHING, 10/05/17) gadobenic acid (Unverified Allergy, Severe, RASH, ITCHING, 10/05/17) gadoteridol (Unverified Allergy, Severe, RASH, ITCHING, 10/05/17) iodixanol (Unverified Allergy, Severe, RASH, ITCHING, 10/05/17) shellfish derived (Unverified Allergy, Severe, RASH, ITCHING, 10/05/17) fenofibrate (Verified Allergy, Unknown, unknown , 10/05/17) niacin (Verified Allergy, Unknown, jittery , 10/05/17) Reported Meds & Prescriptions Reported Meds & Active Scripts Active Diclofenac Sodium DR (Diclofenac Sodium) 75 Mg Tabdr 75 Mg PO BID PRN Alprazolam 0.25 Mg Tab 0.25 Mg PO BID PRN Losartan (Losartan Potassium) 50 Mg Tab 50 Mg PO DAILY Trazodone (Trazodone HCl) 50 Mg Tab 50 Mg PO HS Terazosin (Terazosin HCl) 5 Mg Cap 5 Mg PO BID Levothyroxine (Levothyroxine Sodium) 100 Mcg Tab 100 Mcg PO DAILY Lasix (Furosemide) 40 Mg Tab 40 Mg PO BID Pantoprazole (Pantoprazole Sodium) 40 Mg Tab 40 Mg PO DAILY Amiodarone (Amiodarone HCl) 200 Mg Tab 200 Mg PO DAILY Augmentin (Amoxicillin-Clavulanate) 500-125 mg Tab 500 Mg PO BID Flagyl (Metronidazole) 500 Mg Tab 500 Mg PO TID 10 Days Reported Tradjenta (Linagliptin) 5 Mg Tab 5 Mg PO HS Restoril (Temazepam) 15 Mg Cap 15 Mg PO HS PRN Glipizide 10 Mg Tab 10 Mg PO BID Take 30 minutes before a meal Metoprolol Tartrate 25 Mg Tab 25 Mg PO BID K-Tab (Potassium Chloride) 10 Meq Tab 10 Meq PO BID Hydralazine HCl 25 Mg Tablet 25 Mg PO TID Colcrys (Colchicine) 0.6 Mg Tab 0.6 Mg PO DAILY PRN Acetaminophen-Codeine 300-30 mg Tab 1 Tab PO TID Allopurinol 100 Mg Tab 200 Mg PO BID Review of Systems Except as stated in HPI: all other systems reviewed are Neg Physical Exam Narrative GENERAL: SKIN: Warm and dry. Patient has a circular lesion on his right upper shoulder that appears to have a mole in the center with erythema and some desquamation of the skin that is about 2 cm in diameter. Slightly erythematous but not painful or itchy. HEAD: Atraumatic. Normocephalic. EYES: Pupils equal and round. No scleral icterus. No injection or drainage. ENT: No nasal bleeding or discharge. Mucous membranes pink and moist. NECK: Trachea midline. No JVD. CARDIOVASCULAR: Regular rate and rhythm. RESPIRATORY: No accessory muscle use. Clear to auscultation. Breath sounds equal bilaterally. GASTROINTESTINAL: Abdomen soft, non-tender, nondistended. Hepatic and splenic margins not palpable. MUSCULOSKELETAL: Extremities without clubbing, cyanosis, or edema. No obvious deformities. NEUROLOGICAL: Awake and alert. No obvious cranial nerve deficits. Motor grossly within normal limits. Five out of 5 muscle strength in the arms and legs. Normal speech. PSYCHIATRIC: Appropriate mood and affect; insight and judgment normal. Data Data Last Documented VS Vital Signs Date Time Temp Pulse Resp B/P (MAP) Pulse Ox O2 Delivery O2 Flow Rate FiO2 10/05/17 13:15 97.8 61 16 176/79 (111) 98 MDM Medical Screen Exam Complete: Yes Emergency Medical Condition: No Differential Diagnosis Skin cancer versus suspicious skin lesion versus squamous cell carcinoma Narrative Course 76-year-old male that presents to the ED for evaluation of skin lesion. Patient was properly examined and was found to have signs and symptoms concerning for suspicious skin lesion. I was able to get a hold of the patient' s primary care resident Dr. Schulte and he stated that patient actually has an appointment with the procedures and he can follow with the procedures team to get this biopsy done. This was confirmed and told to the patient and the family and they were told that if they want to get this done sooner they can contact the office of the procedures and see if they can do it this week. At this time there is no sign of acute medical emergency. A medical screening exam was performed: At the time of evaluation the presenting medical condition was determined not to be of an emergent nature. The patient was given the option of receiving additional care, but declined. Patient was given options for additional community resources from which to obtain care. The Patient Has Been advised to seek medical attention for their presenting complaint. The patient has been advised to return to the ER at any time if an emergent condition develops. Primary Impression: Encounter for medical screening examination Med/Other Pt SpecificInfo: No Change to Meds Scripts Diclofenac Sodium DR (Diclofenac Sodium DR) 75 Mg Tabdr 75 MG PO BID Y for PAIN SCALE 1 TO 10, #20 TAB 0 Refills Prov: Luke Hernandez MD 10/05/17 Disposition: 01 DISCHARGE HOME Condition: Stable Merrick Lord Oct 06, 2017 11:07
== END 2017-10-05 15:40 | disposition left against medical advice (07) ==
LOC: NEPK 13:08
DX: L98.9 Disorder of the skin and subcutaneous tissue, unspecified (principal)
CPT/HCPCS: 99281

== ENCOUNTER 2017-10-10 09:54 | Emergency (ER) | payer MEDICARE, MEDICAID ==
[~2017-10-10] VITALS: Ht 172.7 cm; Wt 100.0 kg
[~2017-10-10 09:54] MED LIST changes: +DICL75TA PO
[2017-10-10 09:58] VITALS: BP 193/93; PULSE 83; RESP 16; TEMP 98.9; O2SAT 93
[2017-10-10 10:06] VITALS: BP 171/84; PULSE 77; RESP 22; O2SAT 93
[2017-10-10] MEDS ORDERED: LEVO112T2 PO (10:21)
[2017-10-10] MEDS ORDERED: AMLO5TAB2 PO (10:21)
[2017-10-10] MEDS ORDERED: SODIUM CHLORIDE 0.9% FLUSH 10 ML FLUSH IVF PRN (10:30)
--- NOTE | 2017-10-10 10:33 | PD ---
HPI Chief Complaint: Hypertension Time Seen by Provider: 10:28 Travel History International Travel<30 days: No Contact w/Intl Traveler<30days: No Traveled to known affect area: No History of Present Illness HPI 77-year-old male patient with history of CAD, atrial fibrillation, previous SD, hypertension, presents to the ER today because he notes that he was feeling dizzy last night and he had taken his blood pressure and was in the 200 range, home health a confirmed this this morning as well. He had taken his blood pressure medications this morning, and currently the blood pressure is improved. He noticed that the dizziness would get worse when he tries to stand up. He denies any fevers, chest pains, abdominal pains, shortness of breath, or other symptoms. Modifying Factors: None Associated Signs & Symptoms: Intermittent dizziness, elevated blood pressure Risk Factors: History of hypertension PFSH Past Medical History Arthritis: Yes Asthma: No Autoimmune Disease: No Blood Disorders: No Anxiety: Yes Depression: No Heart Rhythm Problems: Yes Cancer: Yes (melanoma, colon,prostate) Cardiac Catheterization: Yes (X1) Cardiovascular Problems: Yes High Cholesterol: Yes Chemotherapy: Yes (kidney/colon/prostate/melanoma) Chest Pain: No Congestive Heart Failure: No COPD: No Cerebrovascular Accident: No Diabetes: Yes Diminished Hearing: No Diverticulitis: Yes Endocrine: Yes (DM) Gastrointestinal Disorders: Yes (diverticulosis) GERD: No Glaucoma: No Gout: Yes Genitourinary: Yes (freq) Headaches: No Hepatitis: No Hiatal Hernia: Yes Heparin Induced Thrombocytopen: No Hypertension: Yes Immune Disorder: No Kidney Stones: No Musculoskeletal: No Neurologic: No Psychiatric: Yes (anxiety) Reproductive: No Respiratory: No Immunizations Current: Yes Migraines: No Myocardial Infarction: Yes Radiation Therapy: Yes Renal Failure: No Seizures: No Sickle Cell Disease: No Sleep Apnea: No Thyroid Disease: No Ulcer: No ?: Not Past Surgical History Abdominal Surgery: Yes (colon resection) AICD: No Appendectomy: No Arteriovenous Shunt: No Cardiac Surgery: Yes (reyna aragon ) Cholecystectomy: Yes Ear Surgery: No Endocrine Surgery: No Eye Surgery: No Genitourinary Surgery: Yes (kidney ) Gynecologic Surgery: No Insulin Pump: No Joint Replacement: No Oral Surgery: Yes (dentures) Pacemaker: No Thoracic Surgery: No Tonsillectomy: Yes (T&A) Other Surgery: Yes (melanoma) Social History Alcohol Use: No Tobacco Use: No Substance Use: No Allergies-Medications (Allergen,Severity, Reaction): Coded Allergies: diatrizoate meglumine (Unverified Allergy, Severe, RASH, ITCHING, 10/10/17) gadobenic acid (Unverified Allergy, Severe, RASH, ITCHING, 10/10/17) gadoteridol (Unverified Allergy, Severe, RASH, ITCHING, 10/10/17) iodixanol (Unverified Allergy, Severe, RASH, ITCHING, 10/10/17) shellfish derived (Unverified Allergy, Severe, RASH, ITCHING, 10/10/17) fenofibrate (Verified Allergy, Unknown, unknown , 10/10/17) niacin (Verified Allergy, Unknown, jittery , 10/10/17) Reported Meds & Prescriptions Reported Meds & Active Scripts Active Alprazolam 0.25 Mg Tab 0.25 Mg PO BID PRN Losartan (Losartan Potassium) 50 Mg Tab 50 Mg PO DAILY Terazosin (Terazosin HCl) 5 Mg Cap 5 Mg PO BID Levothyroxine (Levothyroxine Sodium) 100 Mcg Tab 100 Mcg PO DAILY Lasix (Furosemide) 40 Mg Tab 40 Mg PO BID Pantoprazole (Pantoprazole Sodium) 40 Mg Tab 40 Mg PO DAILY Amiodarone (Amiodarone HCl) 200 Mg Tab 200 Mg PO DAILY Reported Levothyroxine (Levothyroxine Sodium) 112 Mcg Tab 112 Mcg PO DAILY Amlodipine (Amlodipine Besylate) 5 Mg Tab 5 Mg PO DAILY Tradjenta (Linagliptin) 5 Mg Tab 5 Mg PO HS Metoprolol Tartrate 25 Mg Tab 25 Mg PO BID Hydralazine HCl 25 Mg Tablet 25 Mg PO BID Colcrys (Colchicine) 0.6 Mg Tab 0.6 Mg PO DAILY PRN Acetaminophen-Codeine 300-30 mg Tab 1 Tab PO TID Allopurinol 100 Mg Tab 200 Mg PO BID Review of Systems Except as stated in HPI: all other systems reviewed are Neg Physical Exam Narrative GENERAL: Well-developed obese elderly white male patient currently in moderate distress. Awake and oriented 3. SKIN: Focused skin assessment warm/dry. HEAD: Atraumatic. Normocephalic. EYES: Pupils equal and round. No scleral icterus. No injection or drainage. ENT: No nasal bleeding or discharge. Mucous membranes pink and moist. NECK: Trachea midline. Supple. CARDIOVASCULAR: Regular rate and rhythm. No murmur appreciated. RESPIRATORY: No accessory muscle use. Clear to auscultation. Breath sounds equal bilaterally. GASTROINTESTINAL: Abdomen soft, non-tender, nondistended. Hepatic and splenic margins not palpable. MUSCULOSKELETAL: No obvious deformities. No clubbing. No cyanosis. Bilateral pitting edema of the legs. NEUROLOGICAL: Awake and alert. No obvious cranial nerve deficits. Motor grossly within normal limits. Normal speech. PSYCHIATRIC: Appropriate mood and affect; insight and judgment normal. Data Data Last Documented VS Vital Signs Date Time Temp Pulse Resp B/P (MAP) Pulse Ox O2 Delivery O2 Flow Rate FiO2 10/10/17 11:42 10/10/17 10:06 77 22 93 Nasal Cannula 2.00 10/10/17 09:58 98.9 Orders Orders Electrocardiogram (10/10/17 10:28) Complete Blood Count With Diff (10/10/17 10:28) Comprehensive Metabolic Panel (10/10/17 10:28) B-Type Natriuretic Peptide (10/10/17 10:28) Troponin I (10/10/17 10:28) Urinalysis - C+S If Indicated (10/10/17 10:28) Chest, Single Ap (10/10/17 10:28) Ecg Monitoring (10/10/17 10:28) Iv Access Insert/Monitor (10/10/17 10:28) Oximetry (10/10/17 10:28) Sodium Chloride 0.9% Flush (Ns Flush) (10/10/17 10:30) Aspirin (Aspirin) (10/10/17 11:15) Nitroglycerin 2% Oint (Nitroglycerin 2% (10/10/17 11:15) Heparin Inj (Heparin Inj) (10/10/17 11:15) Heparin Inj (Heparin Inj) (10/10/17 17:15) Heparin Inj (Heparin Inj) (10/10/17 17:15) Heparin-D5w 25,000 U/250 Ml (Heparin-D5w (10/10/17 11:15) Act Partial Throm Time (Ptt) (10/10/17 11:02) Prothrombin Time / Inr (Pt) (10/10/17 11:02) Cbc No Diff, Includes Plts (10/10/17 11:02) Cbc No Diff, Includes Plts (10/13/17 06:00) Act Partial Throm Time (Ptt) (10/10/17 18:02) Occult Blood (Hemoccult) Stool (10/10/17 11:02) Furosemide Inj (Lasix Inj) (10/10/17 11:45) Labs Laboratory Tests Test 10/10/17 10:20 White Blood Count 8.4 TH/MM3 Red Blood Count 3.49 MIL/MM3 Hemoglobin 11.4 GM/DL Hematocrit 33.9 % Mean Corpuscular Volume 97.2 FL Mean Corpuscular Hemoglobin 32.8 PG Mean Corpuscular Hemoglobin Concent 33.7 % Red Cell Distribution Width 15.8 % Platelet Count 121 TH/MM3 Mean Platelet Volume 10.0 FL Neutrophils (%) (Auto) 83.9 % Lymphocytes (%) (Auto) 6.9 % Monocytes (%) (Auto) 8.2 % Eosinophils (%) (Auto) 0.5 % Basophils (%) (Auto) 0.5 % Neutrophils # (Auto) 7.1 TH/MM3 Lymphocytes # (Auto) 0.6 TH/MM3 Monocytes # (Auto) 0.7 TH/MM3 Eosinophils # (Auto) 0.0 TH/MM3 Basophils # (Auto) 0.0 TH/MM3 CBC Comment DIFF FINAL Differential Comment Blood Urea Nitrogen 17 MG/DL Creatinine 1.62 MG/DL Random Glucose 203 MG/DL Total Protein 6.5 GM/DL Albumin 3.1 GM/DL Calcium Level 8.5 MG/DL Alkaline Phosphatase 252 U/L Aspartate Amino Transf (AST/SGOT) 41 U/L Alanine Aminotransferase (ALT/SGPT) 19 U/L Total Bilirubin 1.0 MG/DL Sodium Level 140 MEQ/L Potassium Level 4.2 MEQ/L Chloride Level 107 MEQ/L Carbon Dioxide Level 22.2 MEQ/L Anion Gap 11 MEQ/L Estimat Glomerular Filtration Rate 41 ML/MIN Troponin I 0.32 NG/ML B-Type Natriuretic Peptide 652 PG/ML MDM Medical Decision Making Medical Screen Exam Complete: Yes Emergency Medical Condition: Yes Medical Record Reviewed: Yes Interpretation(s) EKG shows NSR, no ST elevation or depression, and no arrhythmias. No significant T-wave inversions. Laboratory Tests Test 10/10/17 10:20 Red Blood Count 3.49 MIL/MM3 (4.50-5.90) Hemoglobin 11.4 GM/DL (13.0-17.0) Hematocrit 33.9 % (39.0-51.0) Platelet Count 121 TH/MM3 (150-450) Neutrophils (%) (Auto) 83.9 % (16.0-70.0) Lymphocytes (%) (Auto) 6.9 % (9.0-44.0) Monocytes (%) (Auto) 8.2 % (0.0-8.0) Lymphocytes # (Auto) 0.6 TH/MM3 (1.0-4.8) Creatinine 1.62 MG/DL (0.60-1.30) Random Glucose 203 MG/DL (74-106) Albumin 3.1 GM/DL (3.4-5.0) Alkaline Phosphatase 252 U/L (45-117) Aspartate Amino Transf (AST/SGOT) 41 U/L (15-37) Estimat Glomerular Filtration Rate 41 ML/MIN (>89) Troponin I 0.32 NG/ML (0.02-0.05) B-Type Natriuretic Peptide 652 PG/ML (0-100) Last 24 hours Impressions Chest X-Ray 10/10/17 1028 Signed Impressions: CONCLUSION: Mild bibasilar airspace consolidation, right greater than left, with small bila teral pleural effusions. Differential Diagnosis Dizziness, elevated blood pressure: Hypertensive urgency versus orthostasis versus electrolyte abnormalities versus dysrhythmias Narrative Course Patient's blood pressure was still elevated in the ER. His lab work returned showing elevation in troponins. At this point, patient was given aspirin and heparin. There is concerned that he may also be having an SD. Pulmonary edema was identified on chest x-ray. At this point, I have put him in for Lasix as well. I have talked to the patient regarding results and have told him that he needs to be admitted to the hospital for further treatment. However, the patient does not want to be admitted. He states that he does not want to stay for this weekend, states that he is supposed to see a automation technician on Thursday, I have told him that his heart is more immediate and dermatology issues, I have stated to him that he may from this issue. He still states he does not want to be admitted. At this point, he will be leaving AGAINST MEDICAL ADVICE. He is awake, alert, oriented 3, answering questions reportedly, is able to make his own decision. He should return if he changes his mind or his symptoms worsen. AMA: The risks of leaving against medical advice without further evaluation treatment were discussed with the patient. These risks include cardiac dysfunction, cardiac dysrhythmia, possible heart attack, possible stroke or . The patient indicated understanding of these risks and appeared to have the capacity to make this decision. I have also talked to Dr. Jones who is covering for Dr. Aragon and he states that the patient should follow-up on Thursday. At this point, patient has signed out AMA. Diagnosis Primary Impression: CHF (congestive heart failure) Additional Impressions: Hypertensive urgency Non-ST elevation SD (NSTEMI) Disposition: 07 AGAINST MEDICAL ADVICE Condition: Serious Philip Burdick MD Oct 10, 2017 10:33
[2017-10-10 10:39] LABS: AUTOMATED NEUTROPHIL # 7.1 TH/MM3 (1.8-7.7); BASOPHIL % 0.5 % (0.0-2.0); EOSINOPHIL % 0.5 % (0.0-4.0); HEMATOCRIT 33.9 % (39.0-51.0); HEMOGLOBIN 11.4 GM/DL (13.0-17.0); LYMPH % 6.9 % (9.0-44.0); LYMPHOCYTE # 0.6 TH/MM3 (1.0-4.8); MEAN CELL VOLUME 97.2 FL (80.0-100.0); MEAN CORPUSCULAR HEMOGLOBIN 32.8 PG (27.0-34.0); MEAN CORPUSCULAR HGB CONC 33.7 % (32.0-36.0); MONO % 8.2 % (0.0-8.0); MONOCYTE # 0.7 TH/MM3 (0-0.9); NEUT % 83.9 % (16.0-70.0); PLATELET COUNT 121 TH/MM3 (150-450); RED BLOOD COUNT 3.49 MIL/MM3 (4.50-5.90); RED CELL DISTRIBUTION WIDTH 15.8 % (11.6-17.2); WHITE BLOOD COUNT 8.4 TH/MM3 (4.0-11.0)
[2017-10-10 10:55] LABS: ALBUMIN 3.1 GM/DL (3.4-5.0); ALT (GPT) 19 U/L (12-78); AST (GOT) 41 U/L (15-37); BICARBONATE 22.2 MEQ/L (21.0-32.0); BLOOD UREA NITROGEN 17 MG/DL (7-18); CALCIUM 8.5 MG/DL (8.5-10.1); CHLORIDE 107 MEQ/L (98-107); CREATININE 1.62 MG/DL (0.60-1.30); GLOMERULAR FILTRATION RATE 41 ML/MIN (>89); GLUCOSE,RANDOM 203 MG/DL (74-106); SODIUM (NA) 140 MEQ/L (136-145)
[2017-10-10 10:57] LABS: ALKALINE PHOSPHATASE 252 U/L (45-117); TOTAL PROTEIN 6.5 GM/DL (6.4-8.2); TROPONIN I 0.32 NG/ML (0.02-0.05)
--- NOTE | 2017-10-10 10:59 | RADRPT ---
EXAM DATE: 10/10/2017 10:50 AM EDT AGE/SEX: 77 years / Male INDICATIONS: Palpations. High blood pressure. CLINICAL DATA: This is the patient's initial encounter. Patient reports that signs and symptoms have been present for 1 day and indicates a pain score of 0/10. MEDICAL/SURGICAL HISTORY: Carcinoma, colon. Diverticulitis. Diabetes. Myocardial infraction. Colon resection. Cholecystectomy. COMPARISON: [facility], CT CHEST W/O CONTRAST, 08/03/2017. [facility], CHEST SINGLE AP, 12/14/2016. . FINDINGS: Portable AP view of the chest demonstrates a normal size cardiac silhouette with calcification of the aorta. There is a mild airspace consolidation at both lung bases, right greater than left with small bilateral pleural-based opacities. No pneumothorax is identified. Bones demonstrate no acute finding . CONCLUSION: Mild bibasilar airspace consolidation, right greater than left, with small bilateral pleural effusion s. Electronically signed by: Hussein Cavazos MD 10/10/2017 10:58 AM EDT
[2017-10-10] MEDS ORDERED: HEPARIN SODIUM - IV 10,000 UNITS/10 ML VIAL IV PUSH ONE (11:15)
[2017-10-10] MEDS ORDERED: NITROGLYCERIN 2% OINT 1 GM PACKET TOPICAL ONE (11:15)
[2017-10-10] MEDS ORDERED: HEPARIN-D5W 25,000 U/250 ML 250 ML IV PRN (11:15)
[2017-10-10] MEDS ORDERED: ASPIRIN 325 MG TAB PO ONE (11:15)
[2017-10-10] MEDS ORDERED: FUROSEMIDE 40 MG/4 ML VIAL IV PUSH ONE (11:45)
[2017-10-10 12:31] LABS: HEMATOCRIT 32.4 % (39.0-51.0); HEMOGLOBIN 10.9 GM/DL (13.0-17.0); MEAN CELL VOLUME 97.2 FL (80.0-100.0); MEAN CORPUSCULAR HEMOGLOBIN 32.8 PG (27.0-34.0); MEAN CORPUSCULAR HGB CONC 33.7 % (32.0-36.0); MEAN PLATELET VOLUME 10.2 FL (7.0-11.0); PLATELET COUNT 118 TH/MM3 (150-450); RED BLOOD COUNT 3.34 MIL/MM3 (4.50-5.90); RED CELL DISTRIBUTION WIDTH 16.1 % (11.6-17.2); WHITE BLOOD COUNT 8.5 TH/MM3 (4.0-11.0)
[2017-10-10 12:40] LABS: INTERNATIONAL NORMALIZED RATIO 1.1 RATIO; PROTHROMBIN TIME - PATIENT 11.1 SEC (9.8-11.6)
[2017-10-10] MEDS ORDERED: HEPARIN SODIUM - IV 10,000 UNITS/10 ML VIAL IV PUSH PRN ×2 (17:15)
--- NOTE | 2017-10-11 14:00 | EKG ---
Date Performed: 10/10/2017 Time Performed: 09:57:41 PTAGE: 77 years EKG: Sinus rhythm WITH FIRST DEGREE AV BLOCK NONSPECIFIC ST & T-WAVE ABNORMALITY ABNORMAL ECG PREVIOUS TRACING : 12/14/2016 15.48 Since the previous tracing, no significant change noted DOCTOR: Alirio Vicente Interpretating Date/Time 10/11/2017 13:54:35
== END 2017-10-10 13:16 | disposition left against medical advice (07) ==
LOC: NEPE 09:54
DX: I11.0 Hypertensive heart disease with heart failure (principal); I50.9 Heart failure, unspecified; I21.4 Non-ST elevation (NSTEMI) myocardial infarction; I44.0 Atrioventricular block, first degree; R94.31 Abnormal electrocardiogram [ECG] [EKG]; E66.9 Obesity, unspecified; M19.90 Unspecified osteoarthritis, unspecified site; F41.9 Anxiety disorder, unspecified; E78.00 Pure hypercholesterolemia, unspecified; E11.9 Type 2 diabetes mellitus without complications; M10.9 Gout, unspecified; Z79.899 Other long term (current) drug therapy; Z87.19 Personal history of other diseases of the digestive system; Z88.8 Allergy status to other drugs, medicaments and biological substances
CPT/HCPCS: 71045; 80053; 83880; 84484; 85025; 85027; 85610; 85730; 93005